=== PATIENT | female | born 1965 | race Caucasian/White ===

== ENCOUNTER → 2021-01-26 12:41 | Outpatient (CLI) | payer OTHER, SELFPAY ==
--- NOTE | 2021-01-26 12:55 | EKG12_ITS ---
Test Reason : PREOP Blood Pressure : / mmHG Vent. Rate : 086 BPM Atrial Rate : 086 BPM P-R Int : 112 ms QRS Dur : 078 ms QT Int : 358 ms P-R-T Axes : 075 078 072 degrees QTc Int : 428 ms Normal sinus rhythm Normal ECG Confirmed by ANTONIETA NIETO, RADHA ([id number]), technical writer and editor PARISH PHAN ([id number]) on 01/27/2021 10:13:41 AM Referred By: Mitesh Cherry Confirmed By:RADHA FUNG MD
[2021-01-26 13:44] LABS: Hematocrit 40.4 % (37-47); Hemoglobin 13.5 g/dL (12.0-15.0); Mean Corp Hgb Conc 33.4 g/dL (32-36); Mean Corpuscular Hgb 30.1 pg (27.0-32.0); Mean Platelet Vol. 10.6 fl (6.2-12.0); Platelet Count 285 K/mm3 (150-450); RBC Distribution Width CV 12.2 % (11.6-14.6); RBC Distribution Width SD 39.9 fl (35.1-43.9); Red Blood Count 4.49 M/mm3 (4.2-5.4); White Blood Count 7.6 K/mm3 (4.4-11.0)
[2021-01-26 14:08] LABS: Anion Gap 5 (5-15); BUN 14 mg/dL (7-18); BUN/Creat Ratio 14.5 RATIO (10-20); Calcium,Total 9.1 mg/dL (8.5-10.1); Chloride 106 mmol/L (98-107); Creatinine, Serum 0.96 mg/dL (0.55-1.02); EST Glomerular Filtration Rate 63 mL/min (>60); Est Glom Filt Rate - Afr Amer 77 mL/min (>60); Glucose 96 mg/dL (74-106); Sodium Level 138 mmol/L (136-145)
== END ==
PROVIDERS: Referring Provider Physician Assistant; Visit Provider Physician Assistant
DX: Z01.818 Encounter for other preprocedural examination (principal); Z01.810 Encounter for preprocedural cardiovascular examination; Z11.59 Encounter for screening for other viral diseases
CPT/HCPCS: 36415; 80048; 85027; 87635; 93005; C9803; U0002

== ENCOUNTER → 2021-10-20 10:51 | Outpatient (CLI) | payer OTHER, SELFPAY ==
--- NOTE | 2021-10-20 10:57 | ECHOD_ITS ---
Reason For Study: TACHYCARDIA Procedure This was a 2D Doppler, Color Flow transthoracic echocardiogram. Exam performed in department. Left Ventricle Normal LV size. Mid cavitary false tendon noted. Left ventricular systolic function is normal. The estimated ejection fraction is 55 %. Stage 1 diastolic dysfunction. No regional wall motion abnormalities noted. Right Ventricle Normal RV size. Normal systolic function. Mitral Valve Normal mitral valve. Tricuspid Valve Normal tricuspid valve. Mild tricuspid valve insufficiency. Pulmonary artery systolic pressure is 30 mmHg. Aortic Valve Trisinus/trileaflet aortic valve. Pulmonic Valve Normal pulmonic valve. Great Vessels Normal aortic root. The pulmonary artery is normal size. Normal inferior vena cava. Pericardium/Pleural No pericardial effusion. MMode/2D Measurements & Calculations LVIDd: 4.2 cm IVSd: 0.61 cm LAV(MOD-bp): 25.7 ml LVIDs: 2.9 cm LVPWd: 0.68 cm LAV(MOD-bp) Indexed: 14.0 ml/m2 RVDd: 2.8 cm FS: 31.2 % LAV(MOD-sp2): 27.6 ml LAV(MOD-sp4): 24.7 ml LVAd ap4: 22.4 cm2 SV(MOD-sp4): 33.3 ml SV(sp4-el): 35.1 ml LVLd ap4: 7.5 cm EDV(MOD-sp4): 56.8 ml EDV(sp4-el): 57.0 ml LVAs ap4: 12.7 cm2 LVLs ap4: 6.2 cm ESV(MOD-sp4): 23.6 ml ESV(sp4-el): 22.0 ml EF(MOD-sp4): 58.5 % EF(sp4-el): 61.5 % LA A4 area: 11.4 cm2 RA A4 area: 8.9 cm2 Doppler Measurements & Calculations MV E max eddie: 76.3 cm/sec Lat Peak E' Eddie: 10.2 cm/sec Med Peak E' Eddie: 6.5 cm/sec MV A max eddie: 92.9 cm/sec E/E' lat: 7.5 E/E' med: 11.7 MV E/A: 0.82 Ao V2 max: 136.7 cm/sec LV V1 max: 89.6 cm/sec TR max eddie: 261.8 cm/sec Ao max P.5 mmHg LV V1 max P.2 mmHg TR max P.4 mmHg ECHO/Echo Complete Interpretation Summary Normal LV size. Left ventricular systolic function is normal. The estimated ejection fraction is 55 %. Stage 1 diastolic dysfunction. Pulmonary artery systolic pressure is 30 mmHg. Ordering Physician: Jimenez Busch Referring Physician: Jimenez Busch Performed By: Otilia Streeter, RDCS, RVT
--- NOTE | 2021-10-20 12:56 | STRESSREP ---
Stress Test Report Exercise stress test. 56-year-old lady with a history of arrhythmia. Stress protocol: Resting EKG demonstrates normal sinus rhythm with a rate of 85 bpm normal intervals are noted resting blood pressure is 128/82 mmHg. The patient exercised according to regular Jamal protocol for a total duration of 6 minutes and 37 seconds. The maximum heart rate attained was 171 bpm which was 104% of max impact at heart rate to the maximum workload was 8.8 metabolic equivalents. Patient completed 37 seconds into stage III of the Jamal protocol. The peak blood pressure was 200/40 mmHg. No clinical angina was noted the test was terminated due to the target heart rate being achieved. No chest pain was noted no arrhythmias were noted. Rate-pressure product was 32,400. Conclusion: Exercise stress test with no EKG criteria for ischemia at a moderate workload. Good functional capacity. No angina present.
== END ==
PROVIDERS: Referring Provider Internal Medicine Cardiovascular Disease; Visit Provider Internal Medicine Cardiovascular Disease
DX: R00.0 Tachycardia, unspecified (principal)
CPT/HCPCS: 93017; 93306

== ENCOUNTER → 2022-09-27 | Outpatient (CLI) | payer OTHER, SELFPAY ==
--- NOTE | 2022-09-27 08:05 | MRI_ITS ---
HISTORY: VERTIGO. TECHNIQUE: Multiplanar and multisequence MR images of the brain were obtained before and after the intravenous administration of 14 mL Clariscan. 335 images. COMPARISON: None. FINDINGS: BRAIN PARENCHYMA: Minimal increased T2 FLAIR signal in the periventricular white matter. No enhancing lesion in the brain parenchyma. No abnormal focus of restricted diffusion. No acute intracranial hemorrhage identified. CSF SPACES: Cerebral ventricles, cortical sulci, and other extra-axial CSF spaces within normal limits in size. No significant midline shift or other mass effect.No extra-axial fluid collection. Volume averaging artifact noted at the right internal auditory canal. VASCULAR SYSTEM: Major intracranial flow voids are maintained. PARANASAL SINUSES AND MASTOID AIR CELLS: Trace fluid in the right mastoid air cells. Small Thornwaldt cyst of the nasopharynx. ORBITS: Symmetric contents. MRI/Brain W/WO Contrast IMPRESSION: No evidence for enhancing intracranial mass or acute infarct. Minimal chronic white matter changes. Electronically Signed: Chela Agrawal MD at 14:36 EST ,
== END | disposition home or self-care (01) ==
LOC: MRI 07:49
PROVIDERS: PCP Internal Medicine; Referring Provider Internal Medicine; Visit Provider Internal Medicine
DX: R42 Dizziness and giddiness (principal)
CPT/HCPCS: 70553; A9575

== ENCOUNTER → 2023-01-23 | Outpatient (CLI) | payer OTHER, SELFPAY ==
--- NOTE | 2023-01-23 09:03 | NEURO ---
NCS and/or EMG Patient Report Ordering Doctor: Thea Martínez DATE OF SERVICE: 01/23/23 Indication: Bilateral hand tingling and numbness (digits 2-4) for several years. Chronic right sided neck pain. Evaluate for cervical radiculopathy and/or entrapment neuropathy. Findings: Nerve conduction studies were performed in the right and left upper extremities. The right median motor study recording the abductor pollicis brevis showed a normal amplitude, normal distal latency and normal conduction velocity. The right ulnar motor study recording the abductor digiti minimi showed a normal amplitude, normal distal latency and normal conduction velocity. No conduction block or focal slowing was present across the elbow. The right median sensory response recording digit two showed a normal amplitude, latency and conduction velocity. The right ulnar sensory response recording digit five showed a normal amplitude, latency and conduction velocity. The right radial sensory response recording over the extensor snuff box showed a normal amplitude, latency and conduction velocity. The left median motor study recording the abductor pollicis brevis showed a normal amplitude, normal distal latency and normal conduction velocity. The left ulnar motor study recording the abductor digiti minimi showed a normal amplitude, normal distal latency and normal conduction velocity. No conduction block or focal slowing was present across the elbow. The left median sensory response recording digit two showed a normal amplitude, latency and conduction velocity. The left ulnar sensory response recording digit five showed a normal amplitude, latency and conduction velocity. The left radial sensory response recording over the extensor snuff box showed a normal amplitude, latency and conduction velocity. Right median-ulnar lumbrical / interosseous motor latencies showed a normal median latency compared to the ulnar. Left median-ulnar lumbrical / interosseous motor latencies showed a normal median latency compared to the ulnar. Needle EMG of the right upper extremity and cervical paraspinal muscles was performed. No denervation was seen in any muscle. All motor unit morphology, activation and recruitment patterns were normal. Needle EMG of the left upper extremity and cervical paraspinal muscles was performed. No denervation was seen in any muscle. All motor unit morphology, activation and recruitment patterns were normal. Impression: This is a normal study. There is no electrophysiologic evidence of median neuropathy across the wrist on either side. In addition, there is no electrophysiologic evidence of cervical radiculopathy, brachial plexopathy or other entrapment neuropathy in either upper extremity. Please note: electrodiagnostic testing is appropriately 95% sensitive in detecting median neuropathy across the wrist when internal comparison studies are done, as was performed in this case. However, 5% of patients will have a false negative study. Presumably, in these patients, intermittent compression results in pain and paresthesias from ischemia, but without any fixed demyelination or axonal loss that can be demonstrated on electrodiagnostic studies. Thus, clinical correlation is required in the interpretation of this negative study. Kevon Camacho D.O. Multi Select Codes Neurology Neurology Interp Codes: 41696-00 [facility] [employer] test done w/n test comp (interp) (Qty:2) and 02476-44 [facility] cndj test 13/> studies (interp)
== END | disposition home or self-care (01) ==
PROVIDERS: PCP Internal Medicine; Visit Provider Internal Medicine
DX: R20.2 Paresthesia of skin (principal)
CPT/HCPCS: 95886; 95913

== ENCOUNTER → 2023-02-28 | Outpatient (CLI) | payer OTHER, SELFPAY ==
--- NOTE | 2023-02-28 09:40 | RAD_ITS ---
INDICATION: DEGENERATIVE DISC DISEASE PAIN AND STIFFNESS, N/T INTO BILAT HANDS, NKI EXAMINATION/TECHNIQUE: X-RAY - XR Spine Cervical 2 or 3 Views COMPARISON: FINDINGS: Vertebral bodies are normal in height. No fracture demonstrated. No subluxation. C1-2 alignment is maintained. Mild disc space narrowing with osteophytes C4-C6. Tiny fragment adjacent to the anterior-inferior corner of C5 appears well-corticated and likely related to an osteophyte or possibly prior trauma. Mild facet arthropathy at the lower levels C5-C7. Prevertebral soft tissues are unremarkable. RAD/Cerv Spine 2 or 3 Views IMPRESSION: No evidence of fracture or subluxation. Mild degenerative changes. MRI may be helpful for further evaluation. Electronically Signed: Otilia Mclean MD at 7:57 EDT ,
== END | disposition home or self-care (01) ==
LOC: RAD 09:20
PROVIDERS: PCP Internal Medicine; Referring Provider Internal Medicine; Visit Provider Internal Medicine
DX: M50.30 Other cervical disc degeneration, unspecified cervical region (principal)
CPT/HCPCS: 72040

== ENCOUNTER → 2024-01-09 | Outpatient (CLI) | payer OTHER, SELFPAY ==
--- NOTE | 2024-01-09 10:51 | CDU_ITS ---
Reason For Study: Near syncope Rt. Velocities/BP Lt. Velocities/BP Prox CCA 105.8/21.2 cm/sec. Prox CCA 124.7/27.9 cm/sec. Mid CCA 100.3/25.6 cm/sec. Mid CCA 101/24.3 cm/sec. Dist CCA 87.2/24.5 cm/sec. Dist CCA 79.1/20.6 cm/sec. Prox ICA 71.8/17.9 cm/sec. Prox ICA 64.2/24.9 cm/sec. Mid ICA 102.5/37.7 cm/sec. Mid ICA 93.7/33.5 cm/sec. Dist ICA 113.3/44.6 cm/sec. Dist ICA 99.2/33.4 cm/sec. Rt. ICA/CCA = 1.13. Lt. ICA/CCA = 0.98. Prox ECA 75.1/9.1 cm/sec. Prox ECA 108.3/17 cm/sec. Rt. Vert. 58.1/16.3 cm/sec. Lt. Vert. 87.6/18.8 cm/sec. Right Extracranial There is intimal thickening but no significant atherosclerotic plaque noted in the right common carotid artery. There is intimal thickening but no significant atherosclerotic plaque noted in the right internal carotid artery. There is intimal thickening but no significant atherosclerotic plaque noted in the right external carotid artery. Antegrade flow is noted in the right vertebral artery. Left Extracranial There is intimal thickening but no significant atherosclerotic plaque noted in the left common carotid artery. There is intimal thickening but no significant atherosclerotic plaque noted in the left internal carotid artery. There is intimal thickening but no significant atherosclerotic plaque noted in the left external carotid artery. Antegrade flow is noted in the left vertebral artery. Procedure Carotid Duplex 24160. This is a Carotid Duplex examination using B-mode, color flow and specral Doppler. Exam performed in department. VL/Carotid Duplex Ultrasound Interpretation Summary Intimal thickening of the right internal carotid artery with less than 50% sten osis Less than 50% stenosis right external carotid artery Intimal thickening at the proximal left internal carotid artery with less than 50% stenosis Less than 50% stenosis left external carotid artery Patent and antegrade vertebral arteries bilaterally Ordering Physician: Thea Martínez Referring Physician: Teha Martínez D.O. Performed By: Angie Quevedo RVT
== END | disposition home or self-care (01) ==
PROVIDERS: PCP Internal Medicine; Referring Provider Internal Medicine; Visit Provider Internal Medicine
DX: R55 Syncope and collapse (principal)
CPT/HCPCS: 93880

== ENCOUNTER 2024-01-10 16:00 | Outpatient (RCR) | payer OTHER, SELFPAY ==
--- NOTE | 2023-12-13 17:01 | HP.PTEVAL_ITS ---
Patient's Visit Information Visit Information Visit Information: SAL WALKER is a 58 year old F referred to Physical Therapy by Dr. Thea Martínez DO with a diagnosis of TENNIS ELBOW. Date of Evaluation: 12/13/23 Physical Therapist: Quincy Sherwood, PT, Cert MDT, OCS Visit Plan Frequency: 2x /Week Duration: 4 Weeks Plan: Patient had surgery on wrist in Sep 28 OT is doing ex's for ROM/STRENG THENING at [facility] PT INTERVENTIONS FOCUS MANUAL THERAPY STM ,/HAWK ,ACTIVITY MODIFICATIONS AND MODALTIES US/ESTIM/CP/MHP Subjective Subjective: This 58 y/o female presents to physical therapy with right elbow tendonitis lateral. Patient has had right epicondylitis ~ 1 year. Patient had right hand /wrist surgery removed ganglion cyst and tendon repair on 09/26/23. Patient seeing OT but currently seeing OT every 3weeks . Patient plans to RTW 12/18/23. Patient elbow pain persisted . Seen DR Martínez recommended PT and started on Gabapentin. Patient wrist surgery interferes elbow. Patient c/o paresthesia/tingling elbow . Patient sleeping is affects sleeping. Patient pain impairs ADLS /housework tasks . Patient was taking prednisone due to hand edema which patient has stopped . Patient goals to decrease pain. 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 MMT: wrist flexion/extension ,supination/pronation 4-/5 elbow biceps /triceps 4/5 pain Special Tests R Elbow Tinels - Ulnar n.: Negative R Elbow Lat Epiconylitis - as named: Positive Balance/Special Test Scores Quick DASH Score: 67.5000 Goals Goal 1:: Patient to improve quick dash by 5 points to improve function/ADLS Goal Time Frame: 4-6 Weeks Goal 2:: Patient to demonstrate 50% improvement with less elbow pain and improved function Goal Time Frame: 4-6 Weeks Goal 3:: 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 by 5-10# to improve ADL's and housework tasks Goal Time Frame: 4-6 Weeks Goal 4:: Patient to perform ADLS and housework tasks with min limiations Goal Time Frame: 4-6 Weeks Rehabilitation Potential Physical Therapy Diagnosis: Patient has lateral elbow pain and tender medial elbow with weakness 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 and housework tasks subsequently patient had wrist surgery which has caused elbow pain but patient had elbow tendonitis prior to surgery thus will benefit from skilled PT Rehabilitation Potential: Good Anticipated Interventions Patient/Client Instruction: Educate patient on: Condition and Plan of Care For the Purpose of:: To decrease pain, To improve nutrient delivery to tissue, To increase oxygenation perfusion, To improve muscle performance and motor f unction, To improve ability to perform ADL's, To increase tolerance to activity/condition/position, To improve ability of physical actions for home/community/work/leisure, To improve health of tissue, To decrease soft tissue restriction, To increase flexibility/ROM and To improve tolerance to ADL's Manual Therapy Techniques to Include: Manual lymph drainage and Soft tissue mobilization For the Purpose of:: To decrease pain, To increase ROM, To improve nutrient delivery to tissue, To increase oxygenation perfusion, To improve health of tissue and To decrease soft tissue restriction Text: Thank you for the opportunity to evaluate your patient. For Medicare and Medicare HMO plans, please review the plan of care and approve it. It will need to be FAXED BACK to us at [phone] for Medicare purposes. For Medicare only, by signing this I certify the plan of care. Please let me know if there are questions or concerns regarding this plan of care. Physician Signature: Date:
--- NOTE | 2024-01-10 17:00 | HP.PTDCSUM_ITS ---
Discharge Summary D/C summary: It has been my pleasure to treat SAL WALKER referred by Dr. Thea Martínez DO, with the diagnosis of TENNIS ELBOW for a total of 8 visit(s). Discharge Date: Please see the following information for a summary of their discharge status. Subjective Subjective: Burning pain better . 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 MMT: wrist flexion/extension ,supination/pronation 4-/5 elbow biceps /triceps 4/5 pain Goals Goal 1:: Patient to improve quick dash by 5 points to improve function/ADLS Goal Progress: Goal Met Goal 2:: Patient to demonstrate 50% improvement with less elbow pain and improved function Goal Progress: Goal Met Goal 3:: Patient to improve electronic assembly strength by 5-10# to improve ADL's and housework tasks Goal Progress: Goal Met Goal 4:: Patient to perform ADLS and housework tasks with min limiations Goal Progress: Goal Met Plan Plan: D/C D/C Information d/c sentence: If there are questions or concerns regarding this patient's physical therapy, please feel free to call me at [phone]. Thank you for the referral of this patient. Sincerely, Quincy Sherwood, PT, Cert MDT, OCS Balance/Gait/Functional tests Balance/Special Test Scores Quick DASH Score: 15.0000 Improvement % Improvement: 90
== END 2024-01-10 19:00 | disposition home or self-care (01) ==
LOC: PT 16:00
PROVIDERS: PCP Internal Medicine; Referring Provider Internal Medicine; Visit Provider Internal Medicine
DX: M77.10 Lateral epicondylitis, unspecified elbow (principal)
CPT/HCPCS: 97014; 97035; 97140; 97162; 97530; G0283

== ENCOUNTER → 2024-03-19 | Outpatient (CLI) | payer OTHER, SELFPAY ==
--- NOTE | 2024-03-19 10:49 | BI_ITS ---
MAMMOGRAPHY - BILATERAL SCREENING REASON FOR EXAM: Female, 59 years old. Routine annual screening examination. PERTINENT HISTORY: Non-contributory. TECHNIQUE: Digital bilateral breast uche (3D mammographic acquisition) in the CC and MLO projections. 2-D mediolateral oblique (MLO) and craniocaudad (CC) views of both breasts were obtained. CAD: Full Field Digital Mammography with Computer Added Detection was performed. COMPARISON: Comparison is made with prior outside examination of August 23, 2022. FINDINGS: Breast Composition: The breasts are extremely dense, which lowers the sensitivity of mammography. There are no dominant masses or suspicious calcifications. No other significant abnormalities are identified. There has been no significant change since the prior study. BI/SCRN MAMM (CAD)W/UCHE BILAT IMPRESSION: Stable bilateral screening mammogram. Yearly follow-up mammogram recommended. (A) ASSESSMENT CATEGORY: BIRADS Category 1: Negative. A letter regarding these results will be sent to the patient by the facility within 30 days. Approximately 10% of breast cancers are not detected by mammography. A normal mammogram should not delay biopsy of a clinically suspicious abnormality. [id number] Electronically Signed: Blaine Coreas MD at 12:41 EDT ,
== END | disposition home or self-care (01) ==
LOC: OPBI 10:44
PROVIDERS: PCP Internal Medicine; Referring Provider Internal Medicine; Visit Provider Internal Medicine
DX: Z12.31 Encounter for screening mammogram for malignant neoplasm of breast (principal)
CPT/HCPCS: 77063; 77067

== ENCOUNTER → 2025-08-19 | Outpatient (CLI) | payer OTHER, SELFPAY ==
[2025-08-25 16:09] LABS: Age Gdln ACOG Testing 30-65 (.); HPV APTIMA, High Risk Negative (Negative)
== END | disposition home or self-care (01) ==
LOC: LABSPEC 08-20 12:28
PROVIDERS: PCP Nurse Practitioner Family; Referring Provider Nurse Practitioner Family; Visit Provider Nurse Practitioner Family
DX: Z12.4 Encounter for screening for malignant neoplasm of cervix (principal)
CPT/HCPCS: 87624; 88175; G0145

== ENCOUNTER → 2025-10-01 | Outpatient (CLI) | payer OTHER, SELFPAY ==
--- NOTE | 2025-09-30 16:57 | BI_ITS ---
EXAM: SCRN MAMM (CAD)W/UCHE BILAT DATE: 09/30/2025 CLINICAL HISTORY: F, Age 60 y/o , SCREENING TECHNIQUE: Procedure Code: [id number] Modality: MG Procedure: SCRN MAMM (CAD)W/UCHE BILAT COMPARISON: Prior exam(s) dated 03/19/2024 and 08/23/2022. FINDINGS: TISSUE DENSITY: The breasts are extremely dense, which lowers the sensitivity of mammography. Bilateral Breast Mammographic Findings: No significant masses, calcifications or other abnormalities are identified. Benign-appearing round microcalcifications are seen in both breasts. BI/SCRN MAMM (CAD)W/UCHE BILAT IMPRESSION: Benign screening mammogram OVERALL FINAL ASSESSMENT BI-RADS 2: BENIGN RECOMMENDATION: Routine annual follow-up in 1 Year Additional Recommendation none A letter with findings and recommendations will be mailed to the patient. Reading Location: [id number]
--- OUTSIDE RECORDS SUMMARY | 2025-10-01 16:34 | XMS RPT_ITS | CCD ---
Author Organization [facility] Care Team Providers Care Records Assistant Name Role Phone Jroje Paulson Unavailable Unavailable Jorje Paulson Unavailable Unavailable Jorje Paulson Unavailable Unavailable Jorje Paulson Unavailable Unavailable Paulinarbmckenzie Ellie Unavailable Unavailable Rohrbacher Ellie Unavailable Unavailable ANGELITA, SNEHA Unavailable Unavailable ANGELITA, SNEHA Unavailable Unavailable JORJE PAULSON Unavailable Unavailable ANGELITA, SNEHA Unavailable Unavailable SHEILA LEIV Unavailable Unavailable ELLIE SANCHEZ Unavailable Unavailable DESHAUN, ALVERTO A Unavailable Unavailable Jorje Paulson Unavailable Unavailable Unavailable Unavailable Primary Care Provider Unavailabl e Unavailable Primary Care Provider Unavailabl e Fast DO, Geovanni A Unavailable Finn HUERTA, Ana Rosa Unavailable Unavailable Unavailable Unavailable Unavailable Primary Care Provider Unavailabl e JORJE PAULSON Referring Unavailab moon SOLOMON, SHANTA Attending Unavailable JORJE PAULSON Referring Unavailab le SOLOMON, SHANTA Attending Unavailable JORJE PAULSON Referring Unavailab le SOLOMON, SHANTA Attending Unavailable JORJE PAULSON Referring Unavailab moon SOLOMON, SHANTA Attending Unavailable JORJE PAULSON Referring Unavailab JUICE Palacios Referring Unavail able JORJE PAULSON Referring Unavailab le JORJE PAULSON Referring Unavailab le SOLOMON, SHANTA Attending Unavailable Fast DO, Geovanni A Attending Unavailable Fast , Geovanni Charley Referring Unavailable Fast DO, Geovanni A Consulting Unavailable Dr. Geovanni Wiley Attending Unavailable Dr. Jorje Paulson Primary Care Unava ilable FAST, GEOVANNI Referring Unavailable Mauricio, Dr. Sidhu Primary Care Provider [phone] Mauricio, Dr. Sidhu Other Provider Dr. Max Camacho Attending Provider Alexia NIETO, Immanuel Rocio Unavailable [phone] EphraimRemedios Unavailable Geovanni Wiley DO Unavailable Mauricio, Dr. Sidhu Referring Provider [phone] Saba Lowery MA Unavailable Unavailable Bob RESEARCH ADVISOR, Genoveva Unavailable Unavailable Fast, Dr. Sidhu Primary Care Provider [phone] Dr. Saurabh Acosta Attending Provider Mauricio, Dr. Sidhu Referring Provider [phone] Unavailable Primary Care Provider Unavailabl e Kai, Katherine Referring Unavailable Kai, Katherine Attending Unavailable Kai, Katherine Primary Care Unavailable Kai, Katherine Primary Care Unavailable Kai, Katherine Referring Unavailable Kai, Katherine Attending Unavailable FABY MARTIN Referring Roz anastasiailable JAQUELIN BUCHANAN Attending Unavaila ble NO, PHYSICIAN Primary Care Unavailable No, Physician Primary Care Provider Unavailabl e Allergies Allergy Classification Reported Allergen(s) Allergy Type Date of Onset Reaction(s) Facility (2 sources) house dust Allergy to substance (finding) [address] Work Phone: (4 sources) Mold Extract; Translations: [MOLD] Drug Allergy 5 Unknown [facility] Repository (20 sources) Soybean preparation Drug Allergy 5 Unknown [facility] Work Phone: (20 sources) wheat; Translations: [WHEAT] Allergy to substance (finding) 5 [facility] Work Phone: (20 sources) Mold Spores; Translations: [Mold Spores] Allergy to substance (finding) [facility] Work Phone: (1 source) Soybean preparation; Translations: [SOYBEAN] Drug Allergy 5 [facility] Repository (1 source) Wheat preparation Drug Allergy Unknown [facility] Medications Current Medications Medication Drug Class(es) Dates Sig (Normalized) Sig (Original) bio identical Hormones (5 sources) Start: 10-06-2021 bio identical Hormones Active PO DAILY October 06, 2021 1:00am estradiol 0.5 mg estrio 0.3 mg progesterone 180 mcg testosterone 0.4 mg cream Start: 10-06-2021 bio identical Hormones Active PO DAILY October 06, 2021 12:00am estradiol 0.5 mg estrio 0.3 mg progesterone 180 mcg testosterone 0.4 mg cream doxycycline hyclate 20 mg oral tablet (20 sources) Tetracycline-class Drug Start: 02-08-2022 doxycy koehler hyclate (PERIOSTAT) 20 MG tablet Take 1 (one) tablet (20 mg total) by mouth . 02/08/2022 Active levothyroxine (10 sources) l-Thyroxine levothyroxine so dium (LEVOTHYROXINE ORAL) Take by mouth. Active levothyroxine so dium (LEVOTHYROXINE ORAL) Take by mouth. 0 Active Comment on above: Take by mouth. Multivitamin preparation (5 sources) Start: 10-05-2021 take 1 tablet by mouth once daily Multivitamin Active 1 TABLET PO DAILY October 05, 2021 1:00am Start: 10-05-2021 take 1 tablet by massiel th once daily Multivitamin Active 1 TABLET PO DAILY October 05, 2021 12:00am progesterone 200 mg oral capsule (20 sources) Progesterone Start: 09-11-2025 progesterone ( PROMETRIUM) 200 MG capsule 09/11/2025 Active Start: 09-06-2022 End: 11-22-2022 take 1 capsule by mouth once daily proGESTerone micronized 200 mg oral capsule 1 (one) Capsule qd for 0 days Quantity: 30 {Capsule} Refills: 0 Ordered: 22-Nov-2022 Fast DO, Geovanni A Fast DO, Geovanni A Start : 06-Sep-2022 End : 22-Nov-2022 Inactive Start: 02-08-2022 take 100 mg by mouth once sobeida y Progesterone Micronized Active 100 MG PO DAILY February 07, 2022 11:00pm Completed/Discontinued Medications Medication Drug Class(es) Dates Sig (Normalized) Sig (Original) 5-hydroxytryptophan 100 mg oral capsule (20 sources) Start: 10-05-2021 End: 10-06-2021 5-Hydroxytryptophan (5-Htp) Discontinued 100 MG PO AT BEDTIME October 05, 2021 12:00am October 06, 2021 10:17am take 5 capsules by mouth once da susana 5-HTP 100 MG Oral Capsule qd (100 MG) Active B-Complex With Vitamin C (5 sources) Start: 10-05-2021 End: 10-06-2021 take 1 tablet by mouth once daily B-Complex With Vitamin C Discontinued 1 TABLET PO DAILY October 05, 2021 1:00am October 06, 2021 11:17am Start: 10-05-2021 End: 10-06-2021 take 1 tablet by mouth once daily B-Complex With Vitamin C Discontinued 1 TABLET PO DAILY October 05, 2021 12:00am October 06, 2021 10:17am citalopram 20 mg oral tablet (5 sources) Serotonin Reuptake Inhibitor Start: 10-05-2021 End: 10-06-2021 take 20 mg by mouth at bedtime Citalopram Discontinued 20 MG PO AT BEDTIME October 05, 2021 12:00am October 06, 2021 10:17am Glutathione (20 sources) Glutathione 300m g 1 tab in AM Inactive Glutathione 300m g 1 tab in AM Active ivermectin 10 mg/ml topical cream (8 sources) Antiparasitic, Pediculicide ivermectin 1 % topic al cream uad on face (1 %) Active Comments: Dr. Garcia Comment on above: Dr. Garcia L-Methylfolate (4 sources) L-Methylfolate 1 000mcg qd Active levomefolate (20 sources) Start: 10-05-2021 End: 10-06-2021 Levomefolate Calcium (L-Methylfolate) 7.5 mg tablet Discontinued 2 MG PO DAILY October 05, 2021 1:00am October 06, 2021 11:16am Start: 10-05-2021 End: 10-06-2021 Levomefolate Calcium (L-Meth ylfolate) 7.5 mg tablet Discontinued 2 MG PO DAILY October 05, 2021 12:00am October 06, 2021 10:16am L-Methylfolate 1 000mcg qd Active linseed oil 1000 mg oral capsule (20 sources) take 1 tablet by mouth in the morning Flaxseed Oil 1000 MG Oral Capsule 1 tab in AM (1000 MG) Active liothyronine sodium 0.005 mg oral tablet (20 sources) l-Triiodoth yronine Start: 10-05-2021 take 1 tablet by mouth once daily in the morning, then take 0.5 tablet by mouth once daily at bedtime liothyronine 5 mcg oral tablet 1 1/2 (one and a half) tablet daily for 90 days Quantity: 135 {Tablet} Refills: 1 Ordered: 22-Mar-2023 Saba Lowery MA Start : 22-Mar-2023 Active Comments: Mail order. Take 1 tab qam, then 1/2 tab qhs Start: 10-05-2021 take 5 ug by mouth twice daily Liothyronine Active 5 MCG PO TWICE A DAY October 05, 2021 12:00am Liothyronine Sod ium 5 MCG Oral Tablet Quantity: 0 Refills: 0 Ordered: 07-Sep-2021 DO Active Comment on above: Mail order. Take 1 t ab qam, then 1/2 tab qhs Multivitamin Adult Oral Tablet (20 sources) Multivitamin Yuriy lt Oral Tablet qd Active Thioctate (20 sources) Alpha Lipoic Aci d 250mg 1 in AM Active tryptophan 500 mg oral capsule (20 sources) take 1 mg by mouth once daily L-Tryptophan 500 MG Oral Capsule qd (500 MG) Active Vitamin D-3 TABS (2 sources) Vitamin D-3 TABS Quantity: 0 Refills: 0 Ordered: 07-Sep-2021 DO Active Womens Multivitamin Plus TABS (2 sources) Womens Multivita min Plus TABS Quantity: 0 Refills: 0 Ordered: 07-Sep-2021 DO Active Problems Active Problems Problem Classification Problem Date Documented Date Episodic/Chronic Cardiac dysrhythmias (5 sources) Tachycardia; Translations: [Tachycardia, unspecified] 10-05-2021 Episodic Chronic kidney disease (20 sources) Chronic kidney disease stage 2; Translations: [Stage 2 chronic kidney disease] 09-11-2022 Chronic Comment on above: last creatinine norm al get followup lab Conditions associated with dizziness or vertigo (20 sources) Vertigo; Translations: [Vertigo] 09-06-2022 Episodic Comment on above: hearing loss and tin nitus- rule out acoustic neuroma - also headaches and memory loss Diabetes mellitus without complication (20 sources) High hemoglobin A1c level; Translations: [Elevated hemoglobin A1c] 09-11-2022 Episodic Comment on above: get followup lab good control continu e working on diet and ex Disorders of lipid metabolism (20 sources) Hyperlipidemia; Translations: [Hyperlipidemia] Onset: 09-11-2022 Chronic Comment on above: do physical lab high but she said chapin d nmr and particles were good - not wanting to take a statin- she is doing niacin for her apoliporotein b- discussed diet and exget blood flow screening and cardiac cta she doesnt want to t camille meds she is aware risk focardiovascular disease she had cardiac calciumscore neg Immunizations and screening for infectious disease (20 sources) Needs influenza immunization; Translations: [Need for prophylactic vaccination and inoculation against influenza (Renamed from Need for immunization against influenza)] Resolve d: 09-06-2022 Episodic Malaise and fatigue (5 sources) Fatigue; Translations: [Chronic fatigue, unspecified] 10-05-2021 Chronic Menopausal disorders (20 sources) Menopausal symptom; Translations: [Menopausal symptoms] 09-06-2022 Chronic Comment on above: refer luis doing better with pe llets much better Other bone disease and musculoskeletal deformities (20 sources) Osteopenia; Translations: [Osteopenia] 11-22-2022 Episodic Comment on above: weight bearing exerc ise- vit d good weight bearing exerc ise vit d Other eye disorders (2 sources) Myogenic ptosis of bilateral eyelids; Translations: [Myogenic ptosis of bilateral eyelids] Onset: Episodic Other eye disorders (1 source) Bilateral myogenic ptosis of eyes; Translations: [Myogenic ptosis of bilateral eyelids] 09-15-2025 Episodic Other female genital disorders (12 sources) Cyst of vagina; Translations: [Vaginal cysts] 08-08-2023 Episodic Comment on above: not active today but think could be bartholin gland cyst as she said they will open and have fluid- try warm compress and she think illicited by husbands diet so working on that Other infections; including parasitic (20 sources) Lyme disease; Translations: [Lyme disease] Resolve d: 023 09-06-2022 Episodic Comment on above: diagnosed 13 years a go- she diagnosed with myocarditis so saw Scott- seeing clinic in [place] for lymes and helping- Other inflammatory condition of skin (20 sources) Rosacea; Translations: [Acne rosacea] Onset: 025 09-06-2022 Chronic Other inflammatory condition of skin (2 sources) Rosacea, unspecified; Translations: [Rosacea, unspecified] Onset: Chronic Other lower respiratory disease (5 sources) Dyspnea; Translations: [Dyspnea, unspecified] 10-06-2021 Episodic Other nervous system disorders (20 sources) Paresthesia of upper limb; Translations: [Paresthesia of arm] 11-22-2022 Episodic Comment on above: surgery on ganglion Other non-traumatic joint disorders (1 source) Pain of right wrist; Translations: [Pain in right wrist] 07-30-2024 Episodic Other nutritional; endocrine; and metabolic disorders (1 source) Methylenetetrahydrofolate reductase deficiency; 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 Other skin disorders (5 sources) Night sweats; Translations: [Generalized hyperhidrosis] 10-06-2021 Episodic Flor-; endo-; and myocarditis; cardiomyopathy (except that caused by tuberculosis or sexually transmitted disease) (20 sources) Myocarditis; Translations: [Myocarditis] Resolve d: 023 09-06-2022 Chronic Comment on above: was told had lyme my ocarditis- and was having racing heart but that has stopped Residual codes; unclassified (2 sources) History of clinical finding in subject; Translations: [Asymptomatic postmenopausal status (age-related) (natural)] Episodic Comment on above: 2015; Residual codes; unclassified (2 sources) Past history of procedure; Translations: [Other specified personal history presenting hazards to health] Episodic Comment on above: 05/2021; Residual codes; unclassified (2 sources) H/O: miscarriage; Translations: [Personal history of other genital system and obstetric disorders] Episodic Comment on above: 1992; Residual codes; unclassified (20 sources) Body mass index 20-24 - normal; Translations: [BMI 23.0-23.9, adult] 09-06-2022 Episodic Residual codes; unclassified (20 sources) Hereditary disorder of endocrine system; Translations: [MTHFR mutation] 09-06-2022 Episodic Comment on above: had issues with gett ing and had miscarriage- taking methylfolate Residual codes; unclassified (20 sources) Non-smoker; Translations: [Nonsmoker] 09-06-2022 Episodic Residual codes; unclassified (5 sources) Heterozygous methylenetetrahydrofolate reductase mutation; Translations: [Genetic susceptibility to other disease] 10-05-2021 Episodic Spondylosis; intervertebral disc disorders; other back problems (20 sources) Degeneration of cervical intervertebral disc; Translations: [Degenerative disc disease, cervical] Onset: 023 09-11-2022 Chronic Comment on above: improving withpt will need mri of lum bar spine get emgncs - may hav e some carpal tunnel getting mri of lumba r spine she saw surgery they didnt feel enough to operate so going to see hand surgeon if neg laurence at thoracic outlet following getting ramos rgery on ganglion right wrist Thyroid disorders (10 sources) Hypothyroidism, unspecified; Translations: [Hypothyroidism] Onset: 10-05-2021 Chronic Thyroid disorders (6 sources) Sick-euthyroid syndrome; Translations: [Sick-euthyroid syndrome] Onset: 10-06-2021 Episodic Unclassified (20 sources) Encounter for screening for malignant neoplasm of colon; Translations: [Patient encounter status] Onset: 08-08-2023 Episodic Unclassified (20 sources) Unclassified (12 sources) eyelid itching- try zyrtec at hs to start 08-08-2023 Past or Other Problems Problem Classification Problem Date Documented Da te Episodic/Chronic Other bone disease and musculoskeletal deformities (13 sources) Idiopathic kyphoscoliosis; Translations: [Other idiopathic scoliosis, site unspecified] Onset: 07-19-2022 Resolved: 10-11-2022 Chronic Other connective tissue disease (13 sources) Poor posture; Translations: [Abnormal posture] Onset: 07-19-2022 Resolved: 10-11-2022 Episodic Unclassified (2 sources) Finding of menstrual bleeding; Translations: [Menstruation] Comment on above: Onset age 11 years; Unclassified (20 sources) [facility] WELLNESS EXAM 11-22-2022 Unclassified (20 sources) Unspecified Diagnosis 03-22-2023 Results Test Name Value Interpretation Reference Range Facility PAP IG w/Reflex HPV GDLNon 1 ADEQ Comment Normal . [facility] Comment on above: Order Comment: Speci men Comment: [id number] Specimen Comment: No. of containers..01 ThinPrep Vial Result Comment: Sati sfactory for evaluation. No endocervical component is identified. Performed By: #### L 7400.0290 #### [facility] [address] [place], [place], [id number] Age Gdln ACOG T 30-65 Normal . [facility] Comment on above: Order Comment: Speci men Comment: [id number] Specimen Comment: No. of containers..01 ThinPrep Vial Performed By: #### L 7400.0290 #### [facility] [address] [place], [place], [address] COMM . Normal . [facility] Comment on above: Order Comment: Speci men Comment: [id number] Specimen Comment: No. of containers..01 ThinPrep Vial Performed By: #### L 7400.0290 #### [facility] [address] [place], [place], [id number] COMMENT Comment Normal . [facility] Comment on above: Order Comment: Speci men Comment: [id number] Specimen Comment: No. of containers..01 ThinPrep Vial Result Comment: This liquid based ThinPrep(R) pap test was interpreted using the vozero(R) Genius(TM) Cervical Algorithm whole slide imaging system. Performed By: #### L 7400.0290 #### [facility] [address] [place], [place], [address] DIAG Comment Normal . [facility] Comment on above: Order Comment: Speci men Comment: [id number] Specimen Comment: No. of containers..01 ThinPrep Vial Result Comment: NEGA TIVE FOR INTRAEPITHELIAL LESION OR MALIGNANCY. Performed By: #### L 7400.0290 #### [facility] [address] [place], [place], [address] HPV APTIMA, HR Negative Normal Negative [facility] Comment on above: Order Comment: Speci men Comment: [id number] Specimen Comment: No. of containers..01 ThinPrep Vial Result Comment: This nucleic acid amplification test detects fourteen high- risk HPV types (16,18,31,33,35,39,45,51,52,56,58,59,66,68) without differentiation. Performed By: #### L 7400.0290 #### [facility] [address] [place], [place], [address] HPV Fadumo Rfx Comment Normal . [facility] Comment on above: Order Comment: Speci men Comment: [id number] Specimen Comment: No. of containers..01 ThinPrep Vial Result Comment: Crit eria not met, HPV Genotype not performed. Performed at: =[facility] [address] [id number] Test Design Engineer: Zandra Fatima MD, Phone: [phone] Performed at: [address] [id number] Test Design Engineer: Zandra Fatima MD, Phone: [phone] Performed By: #### L 7400.0290 #### [facility] [address] [place], [place], [address] PAPSMR Comment Normal . [facility] Comment on above: Order Comment: Speci men Comment: [id number] Specimen Comment: No. of containers..01 ThinPrep Vial Result Comment: The Pap smear is a screening test designed to aid in the detection of premalignant and malignant conditions of the uterine cervix. It is not a diagnostic procedure and should not be used as the sole means of detecting cervical cancer. Both false-positive and false-negative reports do occur. Performed By: #### L 7400.0290 #### [facility] [address] [place], [place], [address] PERFORM Comment Normal . [facility] Comment on above: Order Comment: Speci men Comment: [id number] Specimen Comment: No. of containers..01 ThinPrep Vial Result Comment: Julienne Reynolds, Commercial Account Executive (ASCP) Performed By: #### L 7400.0290 #### [facility] [address] [place], [address] CBC W/AUTO DIFF WBC (63131)O rdered By: Steamer Gum Candy on 08-29-2023 Basophils (Bld) [#/Vol] 0.0 10*3/uL Normal 0.0-0.2 [facility] Work Phone: Comment on above: PATIENT WAS FASTINGP ERFORMED BY: [facility] Slydso8207 [facility] [id number] Basophils/100 WBC (Bld) 0 % Normal [facility] Work Phone: Comment on above: PATIENT WAS FASTINGP ERFORMED BY: [facility] Ngxsyi2783 [facility] [id number] Eosinophils (Bld) [#/Vol] 0.1 10*3/uL Normal 0.0-0.4 [facility] Work Phone: Comment on above: PATIENT WAS FASTINGP ERFORMED BY: [facility] Btrmes9410 [facility] [id number] Eosinophils/100 WBC (Bld) 1 % Normal [facility] Work Phone: Comment on above: PATIENT WAS FASTINGP ERFORMED BY: [facility] Eyranv2493 [facility] [id number] Erythrocyte distribution width (RBC) [Ratio] 12.1 % Normal 11.7-15.4 [facility] Work Phone: Comment on above: PATIENT WAS FASTINGP ERFORMED BY: [facility] Gaxelh2585 [facility] [id number] Hematocrit (Bld) [Volume fraction] 42.7 % Normal 34.0-46.6 [facility] Work Phone: Comment on above: PATIENT WAS FASTINGP ERFORMED BY: MAUDE Amy Blanchard[address] [facility] [place] [id number] Hemoglobin (Bld) [Mass/Vol] 13.9 g/dL Normal 11.1-15.9 [facility] Work Phone: Comment on above: PATIENT WAS FASTINGP ERFORMED BY: MAUDE [facility] Ceatui[address] [place] [id number] Immature granulocytes (Bld) [#/Vol] 0.0 10*3/uL Normal 0.0-0.1 [facility]; [facility] Work Phone: Comment on above: PATIENT WAS FASTINGP ERFORMED BY: MAUDE [facility] Ypwkud2228 [address] RoadNovant Healthin [place] [id number] Immature granulocytes/100 WBC (Bld) 0 % Normal [facility]; [facility] Work Phone: Comment on above: PATIENT WAS FASTINGP ERFORMED BY: MAUDE [facility] Kexyow[address] [facility] [place] [id number] Lymphocytes (Bld) [#/Vol] 1.6 10*3/uL Normal 0.7-3.1 [facility] Work Phone: Comment on above: PATIENT WAS FASTINGP ERFORMED BY: [facility] Pfoblg5506 [address] RoadNovant Healthin [place] [id number] Lymphocytes/100 WBC (Bld) 24 % Normal [facility]; [facility] Work Phone: Comment on above: PATIENT WAS FASTINGP ERFORMED BY: MAUDE [facility] Qecwvl4800 [address] RoadDublin [place] [id number] MCH (RBC) [Entitic mass] 30.0 pg Normal 26.6-33.0 [facility]; [facility] Work Phone: Comment on above: PATIENT WAS FASTINGP ERFORMED BY: MAUDE [facility] Gitfxi9579 [address] RoadDublin [place] [id number] MCHC (RBC) [Mass/Vol] 32.6 g/dL Normal 31.5-35.7 [facility]; [facility] Work Phone: Comment on above: PATIENT WAS FASTINGP ERFORMED BY: MAUDE [facility] BlanchardCbdajx0632 [address] RoadDublin [place] [id number] MCV (RBC) [Entitic vol] 92 fL Normal 79-97 [facility]; [facility] Work Phone: Comment on above: PATIENT WAS FASTINGP ERFORMED BY: CB [facility] Itafem3516 [address] RoadDublin [place] [id number] Monocytes (Bld) [#/Vol] 0.6 10*3/uL Normal 0.1-0.9 [facility]; [facility] Work Phone: Comment on above: PATIENT WAS FASTINGP ERFORMED BY: MAUDE [facility] Bnpxzx9807 [address] RoadDublin [place] [id number] Monocytes/100 WBC (Bld) 9 % Normal [facility]; [facility] Work Phone: Comment on above: PATIENT WAS FASTINGP ERFORMED BY: MAUDE [facility] Ullzln7487 [address] RoadDublin [place] [id number] Neutrophils (Bld) [#/Vol] 4.4 10*3/uL Normal 1.4-7.0 [facility]; [facility] Work Phone: Comment on above: PATIENT WAS FASTINGP ERFORMED BY: MAUDE [facility] Hykeee8[address] RoadDublin [place] [id number] Neutrophils/100 WBC (Bld) 66 % Normal [facility]; [facility] Work Phone: Comment on above: PATIENT WAS FASTINGP ERFORMED BY: CB [facility] Vpofou7840 [address]Dublin [place] [id number] Platelets (Bld) [#/Vol] 246 10*3/uL Normal 150-450 [facility]; [facility] Work Phone: Comment on above: PATIENT WAS FASTINGP ERFORMED BY: CB [facility] Kviutt6652 [address]Dublin [place] [id number] RBC (Bld) [#/Vol] 4.64 10*6/uL Normal 3.77-5.28 [facility]; [facility] Work Phone: Comment on above: PATIENT WAS FASTINGP ERFORMED BY: [facility] [id number] [place] [id number] WBC (Bld) [#/Vol] 6.7 10*3/uL Normal 3.4-10.8 [facility]; [facility] Work Phone: Comment on above: PATIENT WAS FASTINGP ERFORMED BY: [facility] [id number] [facility] [place] [id number] FREE TRIIDOTHYRONINE (T3) (6 0030)Ordered By: Steamer Gum Candy on 08-29-2023 Free T3 [Mass/Vol] 2.6 pg/mL Normal 2.0-4.4 [facility]; [facility] Work Phone: Comment on above: PATIENT WAS FASTINGP ERFORMED BY: [facility] [id number] [facility] [place] [id number] HGB A1C ([id number])Ordered By: S ystem Anhydrous Ammonia Production Supervisor on 08-29-2023 HbA1c (Bld) [Mass fraction] 5.7 % Abnormal 4.8-5.6 [facility]; [facility] Work Phone: Comment on above: . Prediabetes: 5.7 - 6.4 Diabetes: >6.4 Glycemic control for adults with diabetes: <7.0 PATIENT WAS FASTINGP ERFORMED BY: [facility] [id number] [facility] [id number] LIPID PANEL ([id number])Ordered B y: Steamer Gum Candy on 08-29-2023 Cholesterol [Mass/Vol] 253 mg/dL Abnormal 100-199 [facility]; [facility] Work Phone: Comment on above: PATIENT WAS FASTINGP ERFORMED BY: [facility] Ymisjp[address] [facility] [place] [id number] Cholesterol in HDL [Mass/Vol] 47 mg/dL Normal [facility]; [facility] Work Phone: Comment on above: PATIENT WAS FASTINGP ERFORMED BY: MAUDE [facility] [address]veci[address] [facility] [place] [id number] Triglyceride [Mass/Vol] 244 mg/dL Abnormal 0-149 [facility]; [facility] Work Phone: Comment on above: PATIENT WAS FASTINGP ERFORMED BY: MAUDE Lab[facility] BensonObpsxg7049 [address] [facility] [id number] LIPID PANEL (07915) 45 mg/dL Abnormal 5-40 [facility] Work Phone: Comment on above: PATIENT WAS FASTINGP ERFORMED BY: MAUDE Lab[facility]andon Cdcanr7403 [facility] [id number] LIPID PANEL (73814) 161 mg/dL Abnormal 0-99 [facility]; [facility] Work Phone: Comment on above: PATIENT WAS FASTINGP ERFORMED BY: MAUDE Labcobrandon BensonEbpdps6939 [facility] [id number] LIPID PANEL (92362) 3.4 {ratio} Abnormal 0.0-3.2 [facility]; [facility] Work Phone: Comment on above: LDL/HDL Ratio Men Wo men 1/2 Avg.Risk 1.0 1.5 Avg.Risk 3.6 3.2 2X Avg.Risk 6.2 5.0 3X Avg.Risk 8.0 6.1 PATIENT WAS FASTINGP ERFORMED BY: MAUDE [facility] Acdnfr2411 [facility] [id number] METABOLIC PANEL, COMPREHENSI VE ([id number])Ordered By: Steamer Gum Candy on 08-29-2023 Albumin [Mass/Vol] 4.4 g/dL Normal 3.8-4.9 [facility]; [facility] Work Phone: Comment on above: PATIENT WAS FASTINGP ERFORMED BY: MAUDE [facility] Sfjtse6876 [facility] [id number] Albumin/Globulin [Mass ratio] 1.8 {ratio} Normal 1.2-2.2 [facility]; [facility] Work Phone: Comment on above: PATIENT WAS FASTINGP ERFORMED BY: CB [facility] Pftnot5278 [address]Dublin [place] [id number] ALP [Catalytic activity/Vol] 54 U/L Normal 44-121 [facility]; [facility] Work Phone: Comment on above: PATIENT WAS FASTINGP ERFORMED BY: CB [facility] Evkara4[address]Dublin [place] [id number] ALT [Catalytic activity/Vol] 18 U/L Normal 0-32 [facility]; [facility] Work Phone: Comment on above: PATIENT WAS FASTINGP ERFORMED BY: CB [facility] Zaarcm0481 [address]Dublin [place] [id number] AST [Catalytic activity/Vol] 16 U/L Normal 0-40 [facility]; [facility] Work Phone: Comment on above: PATIENT WAS FASTINGP ERFORMED BY: CB [facility] Ksujyg0355 [address]Dublin [place] [id number] Bilirubin [Mass/Vol] 0.3 mg/dL Normal 0.0-1.2 [facility]; [facility] Work Phone: Comment on above: PATIENT WAS FASTINGP ERFORMED BY: CB [facility] Yokitq5[address]ublin [place] [id number] Calcium [Mass/Vol] 9.4 mg/dL Normal 8.7-10.2 [facility]; [facility] Work Phone: Comment on above: PATIENT WAS FASTINGP ERFORMED BY: CB [facility] Whfsdm1942 [address]Dublin [place] [id number] Chloride [Moles/Vol] 103 mmol/L Normal 96-106 [facility]; [facility] Work Phone: Comment on above: PATIENT WAS FASTINGP ERFORMED BY: CB [facility] Aktswh60[address]ublin [place] [id number] CO2 [Moles/Vol] 25 mmol/L Normal 20-29 [facility]; [facility] Work Phone: Comment on above: PATIENT WAS FASTINGP ERFORMED BY: MAUDE [facility] Momtxy38[address]Dublin [place] [id number] Creatinine [Mass/Vol] 1.05 mg/dL Abnormal 0.57-1.00 [facility]; [facility] Work Phone: Comment on above: PATIENT WAS FASTINGP ERFORMED BY: MAUDE [facility] Hkbdze8[address] [place] [id number] GFR/1.73 sq M.predicted among non-blacks MDRD (S/P/Bld) [Vol rate/Area] 61 mL/min/{1.73_m2} Normal [facility]; [facility] Work Phone: Comment on above: PATIENT WAS FASTINGP ERFORMED BY: MADUE Lab[facility]randon Lrwjgg4353 [address]Dublin [place] [id number] Globulin (S) [Mass/Vol] 2.4 g/dL Normal 1.5-4.5 [facility]; [facility] Work Phone: Comment on above: PATIENT WAS FASTINGP ERFORMED BY: MAUDE [facility] Uwrhdz2149 [address]Dublin [place] [id number] Glucose [Mass/Vol] 110 mg/dL Abnormal 70-99 [facility]; [facility] Work Phone: Comment on above: PATIENT WAS FASTINGP ERFORMED BY: MAUDE [facility] Vvmlyx5794 [address] [facility] [place] [id number] Potassium [Moles/Vol] 4.7 mmol/L Normal 3.5-5.2 [facility]; [facility] Work Phone: Comment on above: PATIENT WAS FASTINGP ERFORMED BY: MAUDE [facility] Btgnvk3631 [address]Dublin [place] [id number] Protein [Mass/Vol] 6.8 g/dL Normal 6.0-8.5 [facility]; [facility] Work Phone: Comment on above: PATIENT WAS FASTINGP ERFORMED BY: MAUDE [facility] Fmofpp9478 [address]Dublin [place] [id number] Sodium [Moles/Vol] 140 mmol/L Normal 134-144 [facility]; [facility] Work Phone: Comment on above: PATIENT WAS FASTINGP ERFORMED BY: CB [facility] Kbzjqu9395 [address]Dublin [place] [id number] Urea nitrogen [Mass/Vol] 15 mg/dL Normal 6-24 [facility] Medicine; [facility] Work Phone: Comment on above: PATIENT WAS FASTINGP ERFORMED BY: CB [facility] Nzvvgk0095 [address] [place] [id number] Urea nitrogen/Creatinine [Mass ratio] 14 mg/mg Normal 9- [facility] Medicine; [facility] Work Phone: Comment on above: PATIENT WAS FASTINGP ERFORMED BY: CB [facility] Atjsus6658 [address] [place] [id number] T4, FREE (THYROXINE) ([id number]) Ordered By: Steamer Gum Candy on 08-29-2023 Free T4 [Mass/Vol] 1.01 ng/dL Normal 0.82-1.77 [facility]; [facility] Work Phone: Comment on above: PATIENT WAS FASTINGP ERFORMED BY: CB [facility] Nukgrk7[address]Dublin [place] [id number] TSH ([id number])Ordered By: Purer Skine m Anhydrous Ammonia Production Supervisor on 08-29-2023 TSH Qn 1.520 {uIU/mL} Normal 0.450-4.500 [facility] Medicine; [facility] Work Phone: Comment on above: PATIENT WAS FASTINGP ERFORMED BY: [facility] Ezmkeq[address] [facility] [place] [id number] MR Lumbar spine WO contrasto n 12-22-2022 IMPRESSION: Mild lumbar spondylotic changes as mentioned without high-grade canal or foraminal stenosis. Anatomic Lumbar Variant: None. L4-5 is considered the level of the iliac crest and assume there are 5 lumbar-type vertebrae. Barn Manager: VARINDER Transcribe Date/Time: Dec 22 2022 9:03A Dictated by : DORA REYES MD This examination was interpreted and the report reviewed and electronically signed by: DORA REYES MD on Dec 22 2022 9:09AM EST [facility] * * *Final Report* * * DATE OF EXAM: Dec 22 2022 8:05AM ROM 0303 - MRI LUMBAR SPINE WO IVCON / PROCEDURE REASON: LOW BACK PAIN * * * * Physician Interpretation * * * * EXAMINATION: MRI LUMBAR SPINE WO IVCON CLINICAL HISTORY: LOW BACK PAIN TECHNIQUE: Routine lumbosacral spine MR protocol without gadolinium. MQ: [id number]_3 COMPARISON: Lumbar spine radiographs 08/09/2022 RESULT: Counting reference: Lumbosacral junction. For the purposes of this report, L4-5 is considered the level of the iliac crest and assume there are 5 lumbar-type vertebrae. Anatomic variant: None. Localizer images: Unremarkable. Alignment: Slight upper lumbar dextrocurvature. Bone marrow signal/fracture: No evidence of pathologic marrow infiltration. No evidence of prior fracture. Small chronic Schmorl's node deformities at L1 and L2 levels. Intraosseous hemangioma in T12. Conus: The conus is within normal limits of signal intensity and morphology. Paraspinal soft tissues: Paraspinal soft tissues are within normal limits. Lower thoracic spine: Visualized lower thoracic canal and foramina are patent. L1-L2: Canal and foramina are patent. L2-L3: Disc bulge with shallow broad-based right foraminal protrusion, mild ligamentum flavum and facet hypertrophy contributing to mild canal stenosis and mild bilateral neural foraminal narrowing. L3-L4: Mild annular bulging and bilateral facet hypertrophy contributing to mild bilateral foraminal narrowing. Canal is patent. L4-L5: Canal and foramina are patent L5-S1: Mild annular bulging, endplate and facet hypertrophy contributing to mild right neural foraminal narrowing and mild canal stenosis. Left foramen is patent. Sacrum and iliac wings: The visualized sacrum and iliac wings are within normal limits. [facility] Provider, Loretta Rodríguez - 12/22/2022 * * *Final Report* * * DATE OF EXAM: Dec 22 2022 8:05AM ROM 0303 - MRI LUMBAR SPINE WO IVCON / PROCEDURE REASON: LOW BACK PAIN * * * * Physician Interpretation * * * * EXAMINATION: MRI LUMBAR SPINE WO IVCON CLINICAL HISTORY: LOW BACK PAIN TECHNIQUE: Routine lumbosacral spine MR protocol without gadolinium. MQ: MRLSPWO_3 COMPARISON: Lumbar spine radiographs 08/09/2022 RESULT: Counting reference: Lumbosacral junction. For the purposes of this report, L4-5 is considered the level of the iliac crest and assume there are 5 lumbar-type vertebrae. Anatomic variant: None. Localizer images: Unremarkable. Alignment: Slight upper lumbar dextrocurvature. Bone marrow signal/fracture: No evidence of pathologic marrow infiltration. No evidence of prior fracture. Small chronic Schmorl's node deformities at L1 and L2 levels. Intraosseous hemangioma in T12. Conus: The conus is within normal limits of signal intensity and morphology. Paraspinal soft tissues: Paraspinal soft tissues are within normal limits. Lower thoracic spine: Visualized lower thoracic canal and foramina are patent. L1-L2: Canal and foramina are patent. L2-L3: Disc bulge with shallow broad-based right foraminal protrusion, mild ligamentum flavum and facet hypertrophy contributing to mild canal stenosis and mild bilateral neural foraminal narrowing. L3-L4: Mild annular bulging and bilateral facet hypertrophy contributing to mild bilateral foraminal narrowing. Canal is patent. L4-L5: Canal and foramina are patent L5-S1: Mild annular bulging, endplate and facet hypertrophy contributing to mild right neural foraminal narrowing and mild canal stenosis. Left foramen is patent. Sacrum and iliac wings: The visualized sacrum and iliac wings are within normal limits. IMPRESSION IMPRESSION: Mild lumbar spondylotic changes as mentioned without high-grade canal or foraminal stenosis. Anatomic Lumbar Variant: None. L4-5 is considered the level of the iliac crest and assume there are 5 lumbar-type vertebrae. Barn Manager: PSCB Transcribe Date/Time: Dec 22 2022 9:03A Dictated by : DORA REYES MD This examination was interpreted and the report reviewed and electronically signed by: DORA REYES MD on Dec 22 2022 9:09AM EST [facility] Radiology Study observation (narrative) [facility] MR Lumbar spine WO contrastO rdered By: [facility] Provider on 12-22-2022 [facility] MRI LUMBAR SPINE WO IVCONon 12-22-2022 MRI LUMBAR SPINE WO IVCON * * *Final Report* * * DATE OF EXAM: Dec 22 2022 8:05AM ROM 0303 - MRI LUMBAR SPINE WO IVCON / PROCEDURE REASON: LOW BACK PAIN * * * * Physician Interpretation * * * * EXAMINATION: MRI LUMBAR SPINE WO IVCON CLINICAL HISTORY: LOW BACK PAIN TECHNIQUE: Routine lumbosacral spine MR protocol without gadolinium. MQ: MRLSPWO_3 COMPARISON: Lumbar spine radiographs 08/09/2022 RESULT: Counting reference: Lumbosacral junction. For the purposes of this report, L4-5 is considered the level of the iliac crest and assume there are 5 lumbar-type vertebrae. Anatomic variant: None. Localizer images: Unremarkable. Alignment: Slight upper lumbar dextrocurvature. Bone marrow signal/fracture: No evidence of pathologic marrow infiltration. No evidence of prior fracture. Small chronic Schmorl's node deformities at L1 and L2 levels. Intraosseous hemangioma in T12. Conus: The conus is within normal limits of signal intensity and morphology. Paraspinal soft tissues: Paraspinal soft tissues are within normal limits. Lower thoracic spine: Visualized lower thoracic canal and foramina are patent. L1-L2: Canal and foramina are patent. L2-L3: Disc bulge with shallow broad-based right foraminal protrusion, mild ligamentum flavum and facet hypertrophy contributing to mild canal stenosis and mild bilateral neural foraminal narrowing. L3-L4: Mild annular bulging and bilateral facet hypertrophy contributing to mild bilateral foraminal narrowing. Canal is patent. L4-L5: Canal and foramina are patent L5-S1: Mild annular bulging, endplate and facet hypertrophy contributing to mild right neural foraminal narrowing and mild canal stenosis. Left foramen is patent. Sacrum and iliac wings: The visualized sacrum and iliac wings are within normal limits. IMPRESSION: Mild lumbar spondylotic changes as mentioned without high-grade canal or foraminal stenosis. Anatomic Lumbar Variant: None. L4-5 is considered the level of the iliac crest and assume there are 5 lumbar-type vertebrae. Barn Manager: VARINDER Transcribe Date/Time: Dec 22 2022 9:03A Dictated by : DORA REYES MD This examination was interpreted and the report reviewed and electronically signed by: DORA REYES MD on Dec 22 2022 9:09AM EST [id number] Normal [facility] CT CARDIAC SCORINGon 023 CT CARDIAC SCORING Patient Name: LISSY SALGUERO STUDY: CT CARDIAC SCORING; 11/29/2022 8:49 am INDICATION: HYPERLIPIDEMIA. COMPARISON: None. ACCESSION NUMBER(S): [id number] ORDERING CLINICIAN: GEOVANNI WILEY TECHNIQUE: Using prospective ECG gating, CT scan of the coronary arteries was performed without intravenous contrast. Coronary calcium scoring was performed according to the method of Agatston. FINDINGS: The score and distribution of calcium in the coronary arteries is as follows: LM 0, LAD 0, LCx 0, RCA 0, Total 0 The visualized mid/lower ascending thoracic aorta measures 2.8 cm in diameter. The heart is normal in size. No pericardial effusion is present. No gross evidence of mediastinal or hilar lymphadenopathy or masses is identified. Streaky subsegmental atelectasis in the lung bases dependently. IMPRESSION: 1. Coronary artery calcium score of 0*. *Coronary artery calcium scoring may be helpful in predicting the risk for future coronary heart disease events. According to the [employer] Clinical Expert Consensus Task Force, such testing provides important prognostic information in patients with more than one coronary heart disease risk factor. The coronary artery calcium score correlates with the annual risk of a non-fatal myocardial infarction or coronary heart disease . Coronary artery score Annual Risk 0-99 0.4% 100-399 1.3% >400 2.4% These three breakpoints correspond to lower, intermediate and high risk states for future coronary events. Such information should be used, along with appropriate clinical judgment, to make decisions regarding the intensity of risk factor management strategies to treat blood lipids and to modify other non-lipid coronary risk factors. Reference: [place] P et al. Circulation. 2007; 115:402-426 Electronically signed by: VINCENZO GARCIA MD [facility] Thin Prep Pap ([id number])Ordered By: Steamer Gum Candy on 11-29-2022 Thin Prep Pap ([id number]) [facility] Normal [facility]; [facility] Work Phone: Comment on above: NEGATIVE FOR INTRAEP ITHELIAL LESION OR MALIGNANCY.THIS SPECIMEN WAS RESCREENED PART OF OUR COMMERCIAL CREDIT PORTFOLIO MANAGER PROGRAM.Satisfactory for evaluation. Endocervical and/or squamous metaplasticcells (endocervical component) are present.Z01.419Z11.51Feliberto Duarte, Field Service Representative ([facility])Diane Doty, Supervisory Field Service Representative ([facility]) No. of containers..0 1 ThinPrep VialPERFORMED BY: [employer] [id number] Information: [id number] Thin Prep Pap ([id number]) . Normal [facility]; [facility] Work Phone: Comment on above: No. of containers..0 1 ThinPrep VialPERFORMED BY: [employer] [id number] Information: [id number] Thin Prep Pap ([id number]) PAPSMR Normal [facility]; [facility] Work Phone: Comment on above: The Pap smear is a s creening test designed to aid in the detection ofpremalignant and malignant conditions of the uterine cervix. It is not adiagnostic procedure and should not be used as the sole means of detectingcervical cancer. Both false-positive and false-negative reports do occur. .This liquid based ThinPrep(R) pap test was screened with theuse of an image guided system.The HPV DNA reflex criteria were not met with this specimen resulttherefore, no HPV testing was performed. . No. of containers..0 1 ThinPrep VialPERFORMED BY: [employer] [id number] Information: [id number] CNTHERAPYon 10-11-2022 CNTHERAPY OT/PT/Speech Visit (PTWS) LISSY SALGUERO ([id number]) 1965 F Date Time Provider Department 10/11/22 9:00 AM SHANT[facility] SOLOMON Date Time Provider Department Center 10/11/2022 9:00 AM SHANT[facility] MONTGOMERY Reason for Visit: PT Discharge [752] Primary Visit Diagnosis:Idiopathic scoliosis and kyphoscoliosis [M41.20] Other Visit Diagnosis:Poor posture [R29.3] Allergies As of Date: 10/11/2022 (No Known Allergies) Date Reviewed: 04/13/2020 Reviewed by: Timbo Rios - Fully Assessed Prescriptions as of 10/11/2022 - levothyroxine sodium (LEVOTHYROXINE ORAL) Take by mouth. Normal [facility] CNTHERAPYon 08-30-2022 CNTHERAPY OT/PT/Speech Visit (PTWS) LISSY SALGUERO ([id number]) 1965 F Date Time Provider Department 08/30/22 9:45 AM SHANTA SOLOMON Date Time Provider Department Center 08/30/2022 9:45 AM SHANTA MONTGOMERY Reason for Visit: Physical Therapy [503] Primary Visit Diagnosis:Idiopathic scoliosis and kyphoscoliosis [M41.20] Other Visit Diagnosis:Poor posture [R29.3] Allergies As of Date: 08/30/2022 (No Known Allergies) Date Reviewed: 04/13/2020 Reviewed by: Timbo Rios - Fully Assessed Prescriptions as of 08/30/2022 - levothyroxine sodium (LEVOTHYROXINE ORAL) Take by mouth. Normal [facility] BD DXA - AXIAL SKELETONon BD DXA - AXIAL SKELETON * * *Final Report* * * DATE OF EXAM: Aug 23 2022 9:05AM WRB 0804 - BD DXA - AXIAL SKELETON B / PROCEDURE REASON: z13.820 screening for osteoporosis, n95.1 post menopausal syndrome * * * * Physician Interpretation * * * * PROCEDURE: BD DXA - AXIAL SKELETON INDICATION: Postmenopausal. TECHNIQUE: Low dose AP spine and hip images COMPARISON: None LUMBAR SPINE: The bone mineral density from L1 through L4 is 1.120 grams per square centimeter which yields a T-score of 0.7. LEFT HIP: The bone mineral density of the total region of the hip is 0.890 grams per square centimeter which yields a T-score of -0.4. LEFT FEMORAL NECK: The bone mineral density of the femoral neck is 0.665 grams per square centimeter which yields a T-score of -1.7. 10-year Fracture Risk (FRAX): Major osteoporotic fracture risk 7.9% Hip fracture risk 0.7% IMPRESSION: Osteopenia in the left femoral neck. [facility] ORG. CLASSIFICATION OF BONE MASS CLASSIFICATION T-SCORE Normal Greater than -1 Low Bone Mass Between -1 and -2.5 (Osteopenia) Osteoporosis Less than or equal to -2.5 Barn Manager: VARINDER Transcribe Date/Time: Aug 23 2022 9:13A Dictated by : SERGEI STERN MD This examination was interpreted and the report reviewed and electronically signed by: SERGEI STERN MD on Aug 23 2022 9:14AM EST [id number] Normal [facility] CNCOon 08-23-2022 CNCO HNO ID: [id number] Author: Mammography Coordinator Service: ? Author Type: Physician Type: Letter Filed: 08/24/2022 11:32 PM Note Text: August 23, 2022 PID: [id number] Lissy Salguero [address] [place] [address] [address] [place] [address] Dear Ms. Salguero, We are pleased to inform you that the results of your recent breast imaging exam on 08/23/2022 are normal. Your mammogram demonstrates that you have dense breast tissue, which could hide abnormalities. Dense breast tissue, in and of itself, is a relatively common condition. Therefore, this information is not provided to cause undue concern; rather, it is to raise your awareness and promote discussion with your health care provider regarding the presence of dense breast tissue in addition to other risk factors. Early detection of cancer is very important. We also understand recommendations regarding breast cancer screening are controversial. Please discuss with your primary care provider which strategy is best for you and whether a mammogram is right for you. Your imaging studies and report will be kept on file at [facility] as part of your permanent medical record and are available for your continuing care. Thank you for allowing us to help in meeting your health care needs. Sincerely, Dr. James Interpreting Radiologist [facility] (Normal over 40) Normal [facility] SCREENINGon 08-23-[address] [facility] SCREENING * * *Final Report* * * DATE OF EXAM: Aug 23 2022 8:19AM [facility] 0581 - [facility] SCREENING / PROCEDURE REASON: z12.31 screening mammogram for breast cancer * * * * Physician Interpretation * * * * RESULT: #[id number] - [facility] SCREENING BILATERAL DIGITAL SCREENING MAMMOGRAM WITH CAD: 08/23/2022 HISTORY: Z12.31 Screening Mammogram For Breast Cancer /Screening Mammogram-Patient reports NO symptoms. /Patient has signed release for outside images that is [facility] [place] / [employer] NOTE. RESULT: TECHNIQUE: The study was acquired using full field digital technology and interpreted from soft copy. Current study was also evaluated with a Computer Aided Detection (CAD). No prior exams were available for comparison. The tissue of both breasts is heterogeneously dense. This may lower the sensitivity of mammography. No significant masses, calcifications, or other findings are seen in either breast. IMPRESSION: NEGATIVE There is no mammographic evidence of malignancy. A 1 year screening mammogram is recommended. The exam was reviewed by a staff physician. SUMMARY: If the patient's prior breast imaging studies become available, an addendum will be dictated after the comparison is made. Clara borges,marcelo/reed: 2 10:57:47 Medical Laboratory Scientist(s): Zo Liriano [facility] [place] letter sent: Normal over 40 Mammogram BI-RADS: 1 Negative Multiple national specialty organizations have released breast cancer screening guidelines for women at average risk for developing breast cancer - guidelines that are based on both evidence and opinion, yet differ on when to start and how often to screen for breast cancer. With representation from Breast Imaging, Internal Medicine, Women's Health, Family Medicine, and Medical/Surgical Oncology, the [facility] has carefully reviewed the data and reached the following consensus: 1) All women should engage in shared decision-making with their providers to decide when to start and how often to screen; 2) All women should have the opportunity to start screening mammography at age 40; 3) For women ages 45-55, we recommend annual screening mammograms; 4) For women ages 55 and over, we support both the transition from an annual to a biennial interval if this aligns more with patient's values and preferences, or continuation with annual screening; 5) All women should discuss with their providers when to stop screening mammograms. Barn Manager: Reed Transcribe Date/Time: Aug 23 2022 8:01A Dictated by: NOREEN BLANCO, DO This examination was interpreted and the report reviewed and electronically signed by: CLARA JAMES MD on Aug 23 2022 10:57AM EST [id number] Normal [facility] CNTHERAPYon 08-16-2022 CNTHERAPY OT/PT/Speech Visit (PTWS) LISSY SALGUERO ([id number]) 1965 F Date Time Provider Department 08/16/22 7:30 AM SHANTA SOLOMON Date Time Provider Department Center 08/16/2022 7:30 AM SHANTA MONTGOMERY Reason for Visit: Physical Therapy [503] Primary Visit Diagnosis:Idiopathic scoliosis and kyphoscoliosis [M41.20] Other Visit Diagnosis:Poor posture [R29.3] Allergies As of Date: 08/16/2022 (No Known Allergies) Date Reviewed: 04/13/2020 Reviewed by: Timbo Rios - Fully Assessed Prescriptions as of 08/16/2022 - levothyroxine sodium (LEVOTHYROXINE ORAL) Take by mouth. Normal [facility] CNTHERAPYon 08-09-2022 CNTHERAPY OT/PT/Speech Visit (PTWS) LISSY SALGUEOR ([id number]) 1965 F Date Time Provider Department 08/09/22 7:30 AM SHANTA SOLOMON Date Time Provider Department Center 08/09/2022 7:30 AM SHANTA MONTGOMERY Reason for Visit: Physical Therapy [503] Primary Visit Diagnosis:Idiopathic scoliosis and kyphoscoliosis [M41.20] Other Visit Diagnosis:Poor posture [R29.3] Allergies As of Date: 08/09/2022 (No Known Allergies) Date Reviewed: 04/13/2020 Reviewed by: Timbo Rios - Fully Assessed Prescriptions as of 08/09/2022 - levothyroxine sodium (LEVOTHYROXINE ORAL) Take by mouth. Normal [facility] No Panel Informationon 08-09 [place] [facility] XR CERVICAL 4V AP/LAT/OBLon 08-09-2022 XR CERVICAL 4V AP/LAT/OBL * * *Final Report* * * DATE OF EXAM: Aug 09 2022 8:45AM [id number] - XR CERVICAL 4V AP/LAT/OBL / PROCEDURE REASON: cervical radiculapathy * * * * Physician Interpretation * * * * EXAMINATION: XR CERVICAL 4V AP/LAT/OBL HISTORY: Neck pain. Cervical radiculopathy. Negative trauma. TECHNIQUE: XR CERVICAL 4V AP/LAT/OBL Laterality: NOT APPLICABLE Number of different views (projections): 4 M: XB_1 COMPARISON: There are no prior relevant examinations available for comparison within the [facility] Imaging Archives. RESULT: 4 views of the cervical spine demonstrate multilevel degenerative change with vertebral body osteophytosis. The intervertebral disc spaces are preserved. There are no vertebral body compression deformities and alignment is well maintained. Bilateral obliques demonstrate mild foraminal narrowing at C4-5 and C7-T1 on the left. Moderate to severe foraminal narrowing is noted at C3-4 and C5-6 on the left. The right neuroforamina are reasonably maintained.. The atlantoaxial interval and craniocervical junction are intact. There is no prevertebral soft tissue abnormality. IMPRESSION: Degenerative changes as detailed in report. Barn Manager: PSCB Transcribe Date/Time: Aug 09 2022 12:08P Dictated by : BABS HENRY MD This examination was interpreted and the report reviewed and electronically signed by: BABS HENRY MD on Aug 09 2022 12:10PM EST [id number] Normal [facility] XR LUMBAR 3V AP/LAT/L5-S1on 08-09-2022 XR LUMBAR 3V AP/LAT/L5-S1 * * *Final Report* * * DATE OF EXAM: Aug 09 2022 8:45AM [id number] - XR LUMBAR 3V AP/LAT/L5-S1 / PROCEDURE REASON: cervical radiculapathy * * * * Physician Interpretation * * * * EXAMINATION: XR LUMBAR 3V AP/LAT/L5-S1 HISTORY: Chronic back pain. TECHNIQUE: XR LUMBAR 3V AP/LAT/L5-S1 Laterality: NOT APPLICABLE Number of different views (projections): 3 M: XB_1 COMPARISON: There are no prior relevant examinations available for comparison within the [facility] Archives. RESULT: Counting reference: Lumbosacral junction. For the purposes of this report, L5-S1 is considered the last lumbar-type disc space and L4-5 is considered the level of the iliac crest. 3 Views of the lumbosacral spine with AP, lateral and cone-down radiographs demonstrate subtle dextrocurvature of the lumbar spine. There is mild multilevel degenerative change with vertebral body osteophytosis. There is subtle intervertebral disc space narrowing at L5-S1 levels. There is hypertrophic facet change at at the lower 2 levels. There are no compression fractures and alignment is well maintained. The soft tissues are unremarkable. IMPRESSION: Mild degenerative change as detailed in report. Barn Manager: PSCB Transcribe Date/Time: Aug 09 2022 12:05P Dictated by : BABS HENRY MD This examination was interpreted and the report reviewed and electronically signed by: BABS HENRY MD on Aug 09 2022 12:08PM EST [id number] Normal [facility] CNTHERAPYon 07-19-2022 CNTHERAPY OT/PT/Speech Visit (PTWS) DENISEPABLOLISSY ([id number]) 1965 F Date Time Provider Department 07/19/22 8:15 AM SHANTA SOLOMON Date Time Provider Department [place] 07/19/2022 8:15 AM [id number] SOLOMON Reason for Visit: PT Eval [747] Patient Education [91] Primary Visit Diagnosis:Idiopathic scoliosis and kyphoscoliosis [M41.20] Other Visit Diagnosis:Poor posture [R29.3] Allergies As of Date: 07/19/2022 (No Known Allergies) Date Reviewed: 04/13/2020 Reviewed by: Timbo Rios - Fully Assessed Prescriptions as of 07/19/2022 - levothyroxine sodium (LEVOTHYROXINE ORAL) Take by mouth. Normal [facility] Laboratory - Cytologyon Cytology report Cyto stain.thin prep Doc (Cvx/Vag) [facility] Work Phone: MANAGER LOCAL - Office Visiton MANAGER LOCAL - Office Visit Diagnoses/Problems Health Maintenance/Risks Encounter for preventive health examination (V70.0) (Z00.00) Assessed Encounter for Papanicolaou smear of cervix (V76.2) (Z12.4) Women's annual routine gynecological examination (V72.31) (Z01.419) Orders PAP INFORMATION TECHNOLOGY COORDINATOR, Cytology; Status:In Progress - Specimen/Data Collected,Retrospective Authorization; Done: 07Sep2021 Last Menstrual Period (LMP): : Menopause PAP - Site : CERVICAL Cytology Order : ThinPrep PAP, Screening, HPV Reflex - Include Genotyping Tobacco Use Screening; Status:Complete; Done: 07Sep2021 Provider Impressions 1. Annual exam Patient had her screening mammogram in March. Follow-up in 1 year or as needed. Chief Complaint New Patient is here for her yearly exam and pap test. Menopause in 2016. Patient does not do self breast exams and has no concerns at this time. History of Present IllnessPresents for annual exam. She voices no complaints and is doing well. Denies any bowel or bladder problems. Denies any breast problems. Denies any postmenopausal bleeding. Review of Systems Review of Systems: Constitutional: No fever or chills Respiratory: No shortness of breath, or cough Cardiovascular: No chest pain or syncope Breasts: No breast pain, no masses, no nipple discharge Gastrointestinal: No nausea, vomiting, or diarrhea, no abdominal pain Genitourinary: No dysuria or frequency Gynecology: Negative except as noted in history of present illness All other: All other systems reviewed and negative for complaint Active Problems Problems Encounter for Papanicolaou smear of cervix (V76.2) (Z12.4) Women's annual routine gynecological examination (V72.31) (Z01.419) Past Medical History Problems History of mammogram (V15.89) (Z92.89) 05/2021 History of menopause (V49.81) (Z78.0) 2015 History of miscarriage (V13.29) (Z87.59) 1992 History of Menstruation Onset age 11 years Surgical History Problems History of Knee surgery 2020: Left Family History Mother Family history of asthma (V17.5) (Z82.5) Family history of hypertension (V17.49) (Z82.49) Family history of osteoporosis (V17.81) (Z82.62) Family history of thyroid disease (V18.19) (Z83.49) Father Family history of cardiac disorder (V17.49) (Z82.49) Family history of diabetes mellitus (V18.0) (Z83.3) Family history of hypertension (V17.49) (Z82.49) Sister Family history of asthma (V17.5) (Z82.5) Family history of diabetes mellitus (V18.0) (Z83.3) Brother Family history of diabetes mellitus (V18.0) (Z83.3) Maternal Grandmother Family history of diabetes mellitus (V18.0) (Z83.3) Paternal Grandmother Family history of malignant neoplasm of breast (V16.3) (Z80.3) Social History Problems Consumes alcohol occasionally (V49.89) (Z78.9) No illicit drug use Non-smoker (V49.89) (Z78.9) Sexually active Allergies Medication No Known Drug Allergies Recorded By: Ellie Velazco; 09/07/2021 8:41:43 AM NonMedication Dust Recorded By: Ellie eVlazco; 09/07/2021 8:41:43 AM Mold Recorded By: Ellie Velazco; 09/07/2021 8:41:43 AM Current Meds Medication NameInstruction Vitamin D-3 TABS Womens Multivitamin Plus TABS Vitals Vital Signs Recorded: 07Sep2021 08:40AM Elzemhvygri28.2 F Kzlakaef300 Ljfcskrxp00 Height5 ft 8 in Seeuhj95.6 kg BMI Yqupayevhd73.67 kg/m2 BSA Calculated1.84 Tobacco Useb) No LMPMenopause Physical Exam PHYSICAL EXAMINATION: Well-developed, well nourished, in no acute distress, alert and oriented x three, is pleasant and cooperative. HEENT: Clear. Pupils equal, round and reactive to light and accommodation. Extraocular muscles are intact. Oral mucosa pink without exudate. NECK: No lymphadenopathy, no thyromegaly. BREASTS: Symmetric, no palpable masses. No nipple discharge or retraction. LUNGS: Clear bilaterally. HEART: Regular rate and rhythm without murmurs. ABDOMEN: Normoactive bowel sounds, soft and nontender, no guarding or rebound tenderness, no CVA tenderness. EXTREMITIES: No clubbing, cyanosis or edema. NEUROLOGIC: Cranial nerves II-XII grossly intact. : Normal external female genitalia, normal vulva, normal vagina. Normal urethral meatus, urethra and bladder. Normal appearing cervix. Normal-sized uterus, no adnexal masses or tenderness. Pap smear performed today. Signatures Electronically signed by : Feliberto Doe MD; Sep 07 2021 8:48AM EST (Author) Normal [facility] Tobacco Screening.on 021 Last menstrual period start date Menopause [facility] [address] [employer] Work Phone: Tobacco use status [facility] b) No [facility] [address] [place] Work Phone: US Head/Neck Soft Tissueon 0 07-31-2017 US Head/Neck Soft Tissue Exam Date/Time:07/31/2017 14:35 EDTReason for Exam:NECK LUMPReportULTRASOUND NECK:HISTORY: Neck lump.FINDINGS: The anterior and lateral aspects of the neck were examinedbilaterally with ultrasound. No lymphadenopathy is seen.Both lobes of the thyroid are normal in echogenicity and in size. The rightthyroid lobe measures 3.5 x 1 x 1 cm and the left 3.1 x 1.1 x 0.9 cm. A benignnodule is seen in the posterior aspect of the mid left lobe, measuring 3 x 2 mmsize.IMPRESSION:Cortney l examination. No mass lesion. FINAL REPORT Dictated: 07/31/2017 4:26 pm Kenroy Chauhan MD KSigned (Electronic Signature): 07/31/2017 4:26 pmSigned by: Kenroy Chauhan MD Technologist: [facility] [place] Mamm Screen w/CAD if perf ormed bilaton 07-26-2017 Bilirubin (direct) Exam Date/Time:07/25/2017 11:47 EDTReason for Exam:SCREENINGReportMA MAMM SCREEN W/CAD IF PERFORMED BILATCLINICAL STATEMENT: Asymptomatic screening. No prior breast surgeries. Familyhistory of breast cancer including a paternal grandmother.TECHNIQUE: Digital craniocaudal and mediolateral oblique views of the right andleft breast were obtained. CAD was reviewed.COMPARISON: 01/05/2012, 08/04/2005.BREAST TISSUE: The breasts are extremely dense, which lowers the sensitivity ofmammography.FINDINGS: The breasts appear symmetric in size. Glandular distribution appearssymmetric. A few benign-appearing calcifications are seen in the breastsbilaterally. The breasts demonstrate suspicious grouped calcifications,developi ng mass, or architectural distortion is seen.IMPRESSION:No mammographic evidence of malignancy.BI-RADS 2 - Benign, no evidence of malignancy. Normal interval followup isrecommended in 12 months.OVERALL ASSESSMENT- BENIGNA letter of notification will be sent to the patient regarding the results.The [place] and the [employer] recommendannual mammograms for women 40 years and older.Assessment / Recommendation: 2-1 Normal interval follow-upBreast density: Homogeneously / Extremely DenseExam Date/Time:07/25/2017 11:47 EDTReportRecall interval: 012 months FINAL REPORT Dictated: 07/26/2017 8:13 am Franklin Lawrence DO PSigned (Electronic Signature): 07/26/2017 8:13 amSigned by: Franklin Lawrence DO Technologist: Emessment: BI-RADS Category 2-Benign findingRecommendation: Normal interval follow-up Normal [facility] OPERATIVE NOTEon 06-05-2017 OPERATIVE NOTE OPERATIVE NOTEOPERAT ION DATE: 4-36-04AUJQHASTHT:IV sedation.PREOPERATIVE DIAGNOSIS:Screening colonoscopy.POSTOPERATI VE DIAGNOSIS:Unremarkable colonoscopy.PROCEDURE NAME:Colonoscopy to the cecum.ESTIMATED BLOOD LOSS: None.COMPLICATIONS: None.DISPOSITION: To the Recovery Room in stable condition.PROCEDURE: The patient was brought to the Endoscopy Suite where monitoringdevices were attached. She was sedated, prepped and draped in the usual fashionfor this procedure. A digital rectal examination demonstrated no mucosalabnormalities. An Olympus colonoscope was inserted into the rectal vault andadvanced under direct visualization through to the cecum. It was then carefullywithdrawn. The cecum, ascending, transverse, descending and sigmoid colons wereunremarkable. There was a section of spastic colon noted in the transversecolon but this resolved with continued insufflation. In the rectal vault thescope was retroverted and no mucosal abnormalities were seen. The scope waswithdrawn. The patient tolerated the procedure well and was taken to theRecovery Room in stable condition. She should undergo repeat colonoscopy in 7years. Normal [facility] Vital Signs Date Time Vital Sign Value Performing Clinician Facility 09-15-2025 07:28-0500 Body height 171.5 cm Jaquelin Ottkatarina JENNINGS Work Phone: [facility] 09-15-2025 07:28-0500 Body mass index (BMI) [Ratio] 22.22 kg/m2 Jaquelin Chanel JENNINGS Work Phone: [facility] 09-15-2025 07:28-0500 Body temperature 97.9 [degF] Jaquelin Buchanan CNP Work Phone: [facility] 09-15-2025 07:28-0500 Body weight 65.32 kg Jaquelin Buchanan CNP Work Phone: [facility] 09-15-2025 07:28-0500 Diastolic blood pressure 76 mm[Hg] Jaquelin Buchanan CNP Work Phone: [facility] 09-15-2025 07:28-0500 Heart rate 78 /min Jaquelin Buchanan CNP Work Phone: [facility] 09-15-2025 07:28-0500 Respiratory rate 16 /min Jaquelin Buchanan CNP Work Phone: [facility] 09-15-2025 07:28-0500 SaO2% (BldA) [Mass fraction] 98 % Jaquelin Buchanan CNP Work Phone: [facility] 09-15-2025 07:28-0500 Systolic blood pressure 131 mm[Hg] Jaquelin Buchanan INSTRUCTIONAL DEVELOPER Work Phone: [facility] 08-08-2023 08:55-0400 Body height 173.35 cm Ana Rosa Briseno [facility] Work Phone: 08-08-2023 08:55-0400 Body mass index (BMI) [Ratio] 23.7 kg/m2 [facility] Work Phone: 08-08-2023 08:55-0400 Body surface area Derived from formula 1.85 m2 Ana Rosa Briseno [facility] Work Phone: 08-08-2023 08:55-0400 Body temperature 98.4 [degF] Ana Rosa Briseno [facility] Work Phone: Comment on above: Method: Thermal Scan 08-08-2023 08:55-0400 Body weight 71.22 kg Ana Rosa Briseno [facility] Work Phone: 08-08-2023 08:55-0400 Diastolic blood pressure 70 mm[Hg] Ana Rosa Finn [facility] Work Phone: Comment on above: Patient Position: Sitting; Cuff Location : Left Arm; Cuff Size: Standard 08-08-2023 08:55-0400 Heart rate 91 /min Ana Rosa Carbajal[facility] [facility] Work Phone: Comment on above: Pattern: Regular 08-08-2023 08:55-0400 Respiratory rate 16 /min Ana Rosa Briseno [facility] Work Phone: Comment on above: Pattern: Unlabored 08-08-2023 08:55-0400 SaO2% (BldA) [Mass fraction] 98 % Ana Rosa Briseno [facility] Work Phone: Comment on above: Room air 08-08-2023 08:55-0400 Systolic blood pressure 116 mm[Hg] Ana Rosa Finn [facility] Work Phone: Comment on above: Patient Position: Sitting; Cuff Location : Left Arm; Cuff Size: Standard 03-28-2023 10:58-0400 Body height 173.35 cm Saba Lowery MA [facility] Work Phone: 03-28-2023 10:58-0400 Body mass index (BMI) [Ratio] 23.24 kg/m2 Saba Lowery MA [facility] Work Phone: 03-28-2023 10:58-0400 Body surface area Derived from formula 1.83 m2 Saba Lowery MA [facility] Work Phone: 03-28-2023 10:58-0400 Body temperature 95.8 [degF] Saba Lowery MA [facility] Work Phone: 03-28-2023 10:58-0400 Body weight 69.85 kg Saba Lowery MA [facility]; [facility] Work Phone: 03-28-2023 10:58-0400 Diastolic blood pressure 70 mm[Hg] Saba Lowery MA [facility] Work Phone: Comment on above: Patient Position: Sitting; Cuff Location : Left Arm; Cuff Size: Standard 03-28-2023 10:58-0400 Heart rate 81 /min Saba Lowery MA [facility]; [facility] Work Phone: Comment on above: Pattern: Regular 03-28-2023 10:58-0400 SaO2% (BldA) [Mass fraction] 97 % Saba Lowery MA [facility]; [facility] Work Phone: Comment on above: Room air 03-28-2023 10:58-0400 Systolic blood pressure 110 mm[Hg] Saba Lowery MA [facility]; [facility] Work Phone: Comment on above: Patient Position: Sitting; Cuff Location : Left Arm; Cuff Size: Standard 11-29-2022 13:28-0500 Body height 173.35 cm [facility] Work Phone: 11-29-2022 13:28-0500 Body mass index (BMI) [Ratio] 23.24 kg/m2 Ana Rosa Marco [facility] Work Phone: 11-29-2022 13:28-0500 Body surface area Derived from formula 1.83 m2 [facility] Work Phone: 11-29-2022 13:28-0500 Body temperature 98.9 [degF] [facility] Work Phone: Comment on above: Method: Thermal Scan 11-29-2022 13:28-0500 Body weight 69.85 kg Ana Rosa Marco [facility]oconner [facility] Work Phone: 11-29-2022 13:28-0500 Diastolic blood pressure 68 mm[Hg] Ana Rosa Briseno [facility] Work Phone: Comment on above: Patient Position: Sitting; Cuff Location : Left Arm; Cuff Size: Standard 11-29-2022 13:28-0500 Heart rate 100 /min Ana Rosa Briseno [facility] Work Phone: Comment on above: Pattern: Regular 11-29-2022 13:28-0500 Respiratory rate 16 /min Ana Rosa Briseno [facility] Work Phone: Comment on above: Pattern: Unlabored 11-29-2022 13:28-0500 Systolic blood pressure 112 mm[Hg] Ana Rosa Briseno [facility] Work Phone: Comment on above: Patient Position: Sitting; Cuff Location : Left Arm; Cuff Size: Standard 11-22-2022 08:55-0500 Body height 173.35 cm Ana Rosa Briseno [facility] Work Phone: 11-22-2022 08:55-0500 Body mass index (BMI) [Ratio] 23.24 kg/m2 [facility] Work Phone: 11-22-2022 08:55-0500 Body surface area Derived from formula 1.83 m2 Ana Rosaeliza Briseno [facility]; [facility] Work Phone: 11-22-2022 08:55-0500 Body temperature 99 [degF] Ana Rosa Briseno [facility] Work Phone: Comment on above: Method: Thermal Scan 11-22-2022 08:55-0500 Body weight 69.85 kg [facility] Work Phone: 11-22-2022 08:55-0500 Diastolic blood pressure 72 mm[Hg] Ana Rosa Briseno [facility] Work Phone: Comment on above: Patient Position: Sitting; Cuff Location : Left Arm; Cuff Size: Standard 11-22-2022 08:55-0500 Heart rate 84 /min Ana Rosa Briseno [facility] Work Phone: Comment on above: Pattern: Regular 11-22-2022 08:55-0500 Respiratory rate 16 /min Ana Rosa Briseno [facility] Work Phone: Comment on above: Pattern: Unlabored 11-22-2022 08:55-0500 Systolic blood pressure 118 mm[Hg] Ana Rosa Briseno [facility] Work Phone: Comment on above: Patient Position: Sitting; Cuff Location : Left Arm; Cuff Size: Standard 09-06-2022 10:08-0400 Body height 173.35 cm Ana Rosa Briseno [facility] Work Phone: 09-06-2022 10:08-0400 Body mass index (BMI) [Ratio] 23.4 kg/m2 Ana Rosa Briseno [facility] Work Phone: 09-06-2022 10:08-0400 Body surface area Derived from formula 1.84 m2 [facility] Work Phone: 09-06-2022 10:08-0400 Body temperature 98.9 [degF] Ana Rosa Briseno [facility] Medicine; [facility] Work Phone: Comment on above: Method: Thermal Scan 09-06-2022 10:08-0400 Body weight 70.31 kg Ana Rosa Briseno [facility] Work Phone: 09-06-2022 10:08-0400 Diastolic blood pressure 64 mm[Hg] Ana Rosa Briseno [facility] Work Phone: Comment on above: Patient Position: Sitting; Cuff Location : Left Arm; Cuff Size: Standard 09-06-2022 10:08-0400 Heart rate 72 /min Ana Rosaeliza Briseno [facility] Work Phone: Comment on above: Pattern: Regular 09-06-2022 10:08-0400 Respiratory rate 16 /min Ana Rosa Briseno [facility] Work Phone: Comment on above: Pattern: Unlabored 09-06-2022 10:08-0400 Systolic blood pressure 112 mm[Hg] Ana Rosa Briseno [facility] Work Phone: Comment on above: Patient Position: Sitting; Cuff Location : Left Arm; Cuff Size: Standard 09-07-2021 08:40-0400 Body height 172.72 cm Jorje Paulson Work Phone: [facility] Work Phone: 09-07-2021 08:40-0400 Body mass index (BMI) [Ratio] 23.67 kg/m2 Jorje Paulson Work Phone: [facility] [address] [place] Work Phone: 09-07-2021 08:40-0400 Body surface area Derived from formula 1.84 m2 Jorje Paulson Work Phone: [employer] Work Phone: 09-07-2021 08:40-0400 Body temperature 98.2 [degF] Jorje Paulson Work Phone: [facility] [address] [place] Work Phone: 09-07-2021 08:40-0400 Body weight 70.6 kg Jorje Paulson Work Phone: [facility] [address] [place] Work Phone: 09-07-2021 08:40-0400 Diastolic blood pressure 78 mm[Hg] Jorje Paulson Work Phone: [facility] [address] [place] Work Phone: 09-07-2021 08:40-0400 Systolic blood pressure 132 mm[Hg] Jorje Paulson Work Phone: [address] Work Phone: Encounters Encounter Date Encounter Type Care Provider Facility Start: 09-30-2025 ambulatory [facility] Facility:[facility] Start: 09-15-2025 End: 09-15-2025 Office outpatient new 30 minutes Jaquelin Buchanan INSTRUCTIONAL DEVELOPER Work Phone: [facility] Pre Admission Testing Comment on above: Pre-op testing (Prim meenakshi Dx); Myogenic ptosis of eyelid of both eyes; Rosacea; Hypothyroidism, unspecified type Start: 09-15-2025 End: 09-15-2025 Patient encounter status Jaquelin Francoisabdias Buchanan INSTRUCTIONAL DEVELOPER Work Phone: [facility] Work Phone: Start: 09-15-2025 End: 09-15-2025 ambulatory FABY MCCARTNEY [facility] Start: 09-15-2025 End: 09-15-2025 Encounter for other preprocedural examination [facility] Start: 08-19-2025 End: 08-19-2025 ambulatory [facility] Facility:[facility] Start: 07-30-2024 End: 07-30-2024 Orders Only Selwyn Oshea MD Work Phone: Orthopaedics Comment on above: Pain in right wrist (Primary Dx) Start: 01-10-2024 End: 01-10-[address] Geovanni Wiley Work Phone: [facility] Work Phone: Start: 01-10-2024 End: 01-10-[address] Geovanni Wiley Work Phone: [facility]-Physical Therapy Work Phone: Start: 01-09-2024 Non-patient / Non-visit Dr. Olvera Work Phone: [facility] Start: 01-09-2024 End: 01-09-[address] Geovanni Wiley Work Phone: [facility] Work Phone: Start: 01-09-2024 End: 01-09-[address] Geovanni Wiley Work Phone: [facility] Work Phone: Start: 12-29-[address] Geovanni Wiley Work Phone: [facility] Work Phone: Start: 08-08-2023 End: 08-08-2023 Office outpatient visit 15 minutes Geovanni Fast DO Work Phone: [facility] Start: 08-08-2023 Review Geovanni Fast DO Work Phone: [facility] Start: 04-14-2023 Review Geovanni Fast DO Work Phone: [facility] Start: 03-28-2023 End: 04-03-2023 Office outpatient visit 25 minutes Geovanni Fast DO Work Phone: [facility] Start: 03-22-2023 End: 03-22-2023 Prescription Refill Geovanni Fast DO Work Phone: [facility] Start: 02-28-2023 End: 02-28-[address] Geovanni Wiley Work Phone: [facility] Work Phone: Start: 02-28-2023 End: 02-28-[address] Geovanni Wiley Work Phone: [facility]-Radiology, [facility] Start: 02-28-2023 End: 04-07-2023 Phone Encounter Geovanni Fast DO Work Phone: [facility] Start: 02-28-2023 Review Geovanni Fast DO Work Phone: [facility] Start: 02-08-2023 End: 02-08-2023 Phone Encounter Geovanni Fast DO Work Phone: [facility] Start: 02-06-2023 End: 02-06-2023 Phone Encounter Geovanni Fast DO Work Phone: [facility] Start: 01-31-2023 End: 01-31-2023 Phone Encounter Geovanni Fast DO Work Phone: [facility] Start: 01-23-2023 Non-patient / Non-visit Dr. Beckford Fast Work Phone: [facility] Start: 01-23-2023 End: 01-23-[address] Geovanni Wiley Work Phone: [facility] Work Phone: Start: 01-23-2023 End: 01-23-[address] 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 Geovanni Wiley Facili ty:[id number] Start: 11-22-2022 ambulatory Geovanni Wiley DO Compre[facility] Start: 11-22-2022 Review Geovanni Fast DO Work Phone: [facility] Start: 10-14-2022 End: 10-14-2022 Phone Encounter Geovanni Fast DO Work Phone: [facility] Start: 10-11-2022 End: 10-11-2022 ambulatory Shanta Solomon PT Work Phone: [facility] Comment on above: Idiopathic scoliosis and kyphoscoliosis (Primary Dx); Poor posture Start: 10-03-2022 End: 01-17-2023 Phone Encounter Geovanni Fast DO Work Phone: [facility] Start: 10-03-2022 Review Geovanni Fast DO Work Phone: [facility] Start: 09-27-2022 End: 09-27-2022 ambulatory [facility] Work Phone: Start: 09-27-2022 End: 09-27-2022 Patient encounter procedure [facility] Start: 09-23-2022 End: 09-23-2022 Phone Encounter Geovanni Fast DO Work Phone: [facility] Start: 09-12-2022 End: 09-19-2022 Phone Encounter Geovanni Fast DO Work Phone: [facility] Start: 09-06-2022 End: 09-11-2022 Office outpatient new 60 minutes Geovanni Fast DO Work Phone: [facility] Start: 08-30-2022 End: 08-30-2022 [facility] Start: 08-30-2022 End: 08-30-2022 ambulatory Shantacharley LutzSolomon PT Work Phone: [facility] Comment on above: Idiopathic scoliosis and kyphoscoliosis (Primary Dx); Poor posture Start: 08-23-2022 Documentation procedure Mammog adriel Coordinator [facility] Start: 08-23-2022 Letter encounter Mammography Coordinator [facility] Department Start: 08-23-2022 End: 08-23-2022 ambulatory JORJE PAULSON Facility:[facility] Start: 08-23-2022 End: 08-23-2022 Subsequent hospital visit by physician Bone Density [facility] Work Phone: Radiology Start: 08-23-2022 End: 08-23-2022 Subsequent hospital visit by physician Screen Mammo [facility] Mammogram Start: 08-16-2022 End: 08-16-2022 ambulatory JORJE PAULSON Facility:[facility] Start: 08-09-2022 End: 08-09-2022 ambulatory JORJE PAULSON Facility:[facility] Start: 08-09-2022 End: 08-09-2022 Subsequent hospital visit by physician [facility] [employer] Work Phone: Radiology Start: 08-09-2022 End: 08-09-2022 ambulatory Shanta Solomon PT Work Phone: [facility] Comment on above: Idiopathic scoliosis and kyphoscoliosis (Primary Dx); Poor posture Start: 07-19-2022 End: 07-19-2022 ambulatory JORJE PAULSON Facility:[facility] Start: 07-19-2022 End: 07-19-2022 ambulatory Shanta Solomon PT Work Phone: [facility] Comment on above: Idiopathic scoliosis and kyphoscoliosis (Primary Dx); Poor posture Start: 09-14-2021 Chart Update Jorje Yovanny Jenny er Work Phone: [employer] Work Phone: Start: 09-07-2021 Initial preventive medicine new patient 40-64yrs Jorje Paulson Work Phone: [employer] Work Phone: Start: 07-31-2017 End: 08-01-2017 Ambulatory Jorje Canasfilomena Facility:[facility] Start: 07-25-2017 End: 07-26-2017 Ambulatory Henryneal Paulson Facility:[facility] Start: 06-05-2017 End: 06-05-2017 Ambulatory [facility] Facility: Patient encounter procedure Jorje Paulson Work Phone: [employer] Work Phone: End: 03-28-2023 Patient encounter procedure Geovanni A Fast DO Work Phone: [facility]; [facility] Work Phone: Procedures Date Procedure Procedure Detail Performing Clinician Start: 02-28-2023 End: 03-01-2023 Cerv Spine 2 or 3 Views Procedure Note: See Note; NOTES: [facility] [address] [place] [address] Cerv Spine 2 or 3 Views MR#: [id number] Acct: [id number] Name: LISSY SALGUERO Rep #: [id number] : 1965 F 58 From: Otilia Zepeda PCP: Dr. Geovanni Wiley DO Status: REG CLI Study: Cerv Spine 2 or 3 Views Date of Exam: 02/28/23 Exam# [id number] Ordering Dr: Geovanni Wiley DO INDICATION: DEGENERATIVE DISC DISEASE PAIN AND STIFFNESS, N/T INTO BILAT HANDS, NKI EXAMINATION/TECHNIQUE: X-RAY - XR Spine Cervical 2 or 3 Views COMPARISON: FINDINGS: Vertebral bodies are normal in height. No fracture demonstrated. No subluxation. C1-2 alignment is maintained. Mild disc space narrowing with osteophytes C4-C6. Tiny fragment adjacent to the anterior-inferior corner of C5 appears well-corticated and likely related to an osteophyte or possibly prior trauma. Mild facet arthropathy at the lower levels C5-C7. Prevertebral soft tissues are unremarkable. RAD/Cerv Spine 2 or 3 Views IMPRESSION: No evidence of fracture or subluxation. Mild degenerative changes. MRI may be helpful for further evaluation. Electronically Signed: Otilia Mclean MD at 7:57 EDT , CC: Dr. Geovanni Wiley DO Barn Manager: Signed Geovanni Wiley DO Work Phone: Start: 02-28-2023 X-ray of cervical spine Dr. Geovanni Wiley Work Phone: Start: 01-23-2023 End: 01-23-2023 NCS and/or EMG Patient Procedure Note: See Note; NOTES: [facility] Pulmonary Services/Neurology [address] [place] [address] MR#: [id number] Acct: [id number] Name: LISSY SALGUERO Rep #: [id number] : 1965 57 From: Max Camacho DO Referring Dr: Status: REG CLI Location: PSN Date: 01/23/23 Sex: F C NCS and/or EMG Patient Report Ordering Doctor: Geovanni Wiley DATE OF SERVICE: 01/23/23 Indication: Bilateral hand tingling and numbness (digits 2-4) for several years. Chronic right sided neck pain. Evaluate for cervical radiculopathy and/or entrapment neuropathy. Findings: Nerve conduction studies were performed in the right and left upper extremities. The right median motor study recording the abductor pollicis brevis showed a normal amplitude, normal distal latency and normal conduction velocity. The right ulnar motor study recording the abductor digiti minimi showed a normal amplitude, normal distal latency and normal conduction velocity. No conduction block or focal slowing was present across the elbow. The right median sensory response recording digit two showed a normal amplitude, latency and conduction velocity. The right ulnar sensory response recording digit five showed a normal amplitude, latency and conduction velocity. The right radial sensory response recording over the extensor snuff box showed a normal amplitude, latency and conduction velocity. The left median motor study recording the abductor pollicis brevis showed a normal amplitude, normal distal latency and normal conduction velocity. The left ulnar motor study recording the abductor digiti minimi showed a normal amplitude, normal distal latency and normal conduction velocity. No conduction block or focal slowing was present across the elbow. The left median sensory response recording digit two showed a normal amplitude, latency and conduction velocity. The left ulnar sensory response recording digit five showed a normal amplitude, latency and conduction velocity. The left radial sensory response recording over the extensor snuff box showed a normal amplitude, latency and conduction velocity. Right median-ulnar lumbrical / interosseous motor latencies showed a normal median latency compared to the ulnar. Left median-ulnar lumbrical / interosseous motor latencies showed a normal median latency compared to the ulnar. Needle EMG of the right upper extremity and cervical paraspinal muscles was performed. No denervation was seen in any muscle. All motor unit morphology, activation and recruitment patterns were normal. Needle EMG of the left upper extremity and cervical paraspinal muscles was performed. No denervation was seen in any muscle. All motor unit morphology, activation and recruitment patterns were normal. Impression: This is a normal study. There is no electrophysiologic evidence of median neuropathy across the wrist on either side. In addition, there is no electrophysiologic evidence of cervical radiculopathy, brachial plexopathy or other entrapment neuropathy in either upper extremity. Please note: electrodiagnostic testing is appropriately 95% sensitive in detecting median neuropathy across the wrist when internal comparison studies are done, as was performed in this case. However, 5% of patients will have a false negative study. Presumably, in these patients, intermittent compression results in pain and paresthesias from ischemia, but without any fixed demyelination or axonal loss that can be demonstrated on electrodiagnostic studies. Thus, clinical correlation is required in the interpretation of this negative study. Dora Camacho D.O. Multi Select Codes Neurology Neurology Interp Codes: 48959-07 Musc test done w/n test comp (interp) (Qty:2) and 10028-89 Nr cndj test / studies (interp) 01/23/23904 <Electronically signed by Max Camacho DO> Date Max Camacho DO CC: Dr. Dora Camacho DO; Dr. Geovanni Wiley DO Date Dictated: 01/23/23902 Date Transcribed: 01/23/23902 Barn Manager: SHAD Signed Geovanni Wiley DO Work Phone: Start: 12-22-2022 Mri spinal canal lumbar w/o contrast material Geovanni Wiley DO Work Phone: Start: 09-27-2022 End: 10-03-2022 Brain W/WO Contrast Procedure Note: See Note; NOTES: [facility] Services [address] [place] [address] Brain W/WO Contrast MR#: [id number] Acct: [id number] Name: LISSY SALGUERO Rep #: [id number] : 1965 F 57 From: Chela castle MD PCP: Dr. Geovanni Wiley DO Status: REG CLI Study: Brain W/WO Contrast Date of Exam: 09/27/22 Exam# [id number] Ordering Dr: Geovanni Wiley DO HISTORY: VERTIGO. TECHNIQUE: Multiplanar and multisequence MR images of the brain were obtained before and after the intravenous administration of 14 mL Clariscan. 335 images. COMPARISON: None. FINDINGS: BRAIN PARENCHYMA: Minimal increased T2 FLAIR signal in the periventricular white matter. No enhancing lesion in the brain parenchyma. No abnormal focus of restricted diffusion. No acute intracranial hemorrhage identified. CSF SPACES: Cerebral ventricles, cortical sulci, and other extra-axial CSF spaces within normal limits in size. No significant midline shift or other mass effect.No extra-axial fluid collection. Volume averaging artifact noted at the right internal auditory canal. VASCULAR SYSTEM: Major intracranial flow voids are maintained. PARANASAL SINUSES AND MASTOID AIR CELLS: Trace fluid in the right mastoid air cells. Small Thornwaldt cyst of the nasopharynx. ORBITS: Symmetric contents. MRI/Brain W/WO Contrast IMPRESSION: No evidence for enhancing intracranial mass or acute infarct. Minimal chronic white matter changes. Electronically Signed: Chela Agrawal MD at 14:36 EST , CC: Dr. Geovanni Wiley DO Barn Manager: Signed Geovanni Wiley DO Work Phone: Start: 09-27-2022 MRI of brain with contrast Start: 08-23-2022 Mammography Screen Wst r Start: 08-09-2022 Radex spine cervical 4 or 5 views [facility] Provider Start: 06-05-2017 Colonoscopy Shanta Pinto son PT Work Phone: Dr. Rissa Briseno CMA Comment on above: Ketamine treatments Dr. Rissa Briseno CMA Comment on above: Ketamine treatments Dr. Rissa Briseno CMA Comment on above: Ketamine treatments Dr. Rissa Lowery MA Comment on above: Ketamine treatments Dr. Rissa Briseno CMA Comment on above: Ketamine treatments Dr. 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 maintainer Dr. 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 maintainer Dr. 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 maintainer Dr. scott Lowery MA Comment on above: press maintainer Dr. 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 maintainer left knee meniscal tear- arthroscopy- [place] 2020 Geovanni Whitehead Fast DO Work Phone: left knee meniscal tear- arthroscopy- [place] 2020 Ana Rosa Briseno CMA left knee meniscal tear- arthroscopy- [place] 2020 Ana Rosa Briseno CMA left knee meniscal tear- arthroscopy- [place] 2020 Saba Lowery MA left knee meniscal tear- arthroscopy- [place] 2020 Ana Rosa Briseno CMA Operative procedure on knee Jorje Yovanny Paulson Work Phone: Comment on above: 2020: Left; Plan of Treatment Date Care Activity Detail Author Start: 02-15-2039 RSV Vaccine (1 - 1-dose 75+ series) RSV Vaccine (1 - 1-dose 75+ series) [facility] Start: 02-15-2039 RSV Vaccines (1 - 1-dose 75+ series) RSV Vaccines (1 - 1-dose 75+ series) [facility] Start: 06-05-2027 Screening for malignant neoplasm of colon [facility] Start: 07-07-2025 COVID-19 Vaccine ( season) COVID-19 Vaccine ( season) [facility] Start: 07-07-2025 Influenza vaccination Influenza Vaccine (#1) [facility] Start: 08-13-2024 End: 08-13-2024 Patient encounter procedure Radiology Comment on above: right wrist Right wrist pain. Pa in is constant, unable to use right wrist/hand. Start: 07-07-2024 Covid-19 Vaccine ( season) Covid-19 Vaccine () [facility] Start: 07-07-2024 [facility] Start: 11-29-2023 History and physical examination, annual for health maintenance Wellness Visit [facility] Start: 08-23-2023 Mammography MAMMOGRAM [facility] Start: 08-23-2023 Screening for malignant neoplasm of breast [facility] Start: 08-08-2023 Procedure Education Eprescribed prescriptions (G8553) [facility]; [facility] Work Phone: Start: 08-08-2023 Assay of free thyroxine T4, FREE (THYROXINE) (26528) [facility]; [facility] Work Phone: Start: 08-08-2023 Assay of triiodothyronine t3 free FREE TRIIDOTHYRONINE (T3) (20448) [facility]; [facility] Work Phone: Start: 08-08-2023 Assay of thyroid stimulating hormone tsh TSH (75826) [facility]; [facility] Work Phone: Start: 08-08-2023 Hemoglobin glycosylated a1c HGB A1C (81024) [facility]; [facility] Work Phone: Start: 08-08-2023 Blood count complete auto&auto difrntl wbc CBC W/AUTO DIFF WBC (95808) [facility]; [facility] Work Phone: Start: 08-08-2023 Comprehensive metabolic panel METABOLIC PANEL, COMPREHENSIVE (19929) [facility]; [facility] Work Phone: Start: 08-08-2023 Lipid panel LIPID PANEL (58102) [facility]; [facility] Work Phone: Start: 04-03-2023 Blood count complete auto&auto difrntl wbc CBC W/AUTO DIFF WBC (88807) [facility]; [facility] Work Phone: Start: 04-03-2023 Comprehensive metabolic panel METABOLIC PANEL, COMPREHENSIVE (90850) [facility]; [facility] Work Phone: Start: 04-03-2023 Lipid panel LIPID PANEL (86121) [facility]; [facility] Work Phone: Start: 03-28-2023 Procedure Education Eprescribed prescriptions (G8553) [facility]; [facility] Work Phone: Start: 11-29-2022 Procedure Education Eprescribed prescriptions (G8553) [facility]; [facility] Work Phone: Start: 11-29-2022 Provider Instructions for Treatment Pap/Pelvic/Bimanual/Exa m was done. [facility]; [facility] Work Phone: Start: 11-29-2022 Hpv, dna, amp probe HPV automatic (53745) [facility]; [facility] Work Phone: Start: 11-22-2022 Procedure Education Eprescribed prescriptions (G8553) [facility]; [facility] Work Phone: Start: 11-22-2022 Hemoglobin glycosylated a1c HGB A1C (34560) [facility]; [facility] Work Phone: Start: 11-22-2022 Comprehensive metabolic panel METABOLIC PANEL, COMPREHENSIVE (26935) [facility]; [facility] Work Phone: Start: 11-22-2022 Lipoprotein blood garth numbers & subclasses NMR Profile (40860) [facility]; [facility] Work Phone: Start: 10-14-2022 CBC, PLATELETS & MANUAL DIFF (23320) CBC, PLATELETS & MANUAL DIFF (86062) [facility]; [facility] Work Phone: Comment on above: get these along with [employer] hormone pro file Start: 10-14-2022 Comprehensive metabolic panel METABOLIC PANEL, COMPREHENSIVE (68028) [facility]; [facility] Work Phone: Comment on above: get these along with [employer] pro file Start: 09-11-2022 Blood count complete auto&auto difrntl wbc CBC W/AUTO DIFF WBC (48969) [facility]; [facility] Work Phone: Start: 09-11-2022 Comprehensive metabolic panel METABOLIC PANEL, COMPREHENSIVE (16175) [facility]; [facility] Work Phone: Start: 09-06-2022 Procedure Education Eprescribed prescriptions (G2853) [facility]; [facility] Work Phone: Start: 07-07-2022 Influenza vaccination INFLUENZA (#1) [facility] Start: 11-06-2021 DEPRESSION ASSESSMENT DEPRESSION ASSESSMENT [facility] Start: 08-02-2021 COVID-19 VACCINE (3 - Booster for Pfizer series) COVID-19 VACCINE (3 - Booster for Pfizer series) [facility] Start: 04-27-2021 COVID-19 VACCINE (3 - Booster for Pfizer series) COVID-19 VACCINE (3 - Booster for Pfizer series) [facility] Start: 06-05-2018 Colonoscopy COLONOSCOPY [facility] Start: 06-05-2018 COLORECTAL CANCER SCREENING COLORECTAL CANCER SCREENING [facility] Start: 02-15-2014 Administration of herpes zoster vaccine Zoster Vaccines (1 of 2) [facility] Start: 02-15-2014 Pneumococcal Vaccine: 50+ Years (1 of 1 - PCV) Pneumococcal Vaccine: 50+ Years (1 of 1 - PCV) [facility] Start: 02-15-2014 Screening for malignant neoplasm of colon Flexible sigmoidoscopy [facility] Start: 02-15-2014 SHINGRIX VACCINE (1 of 2) SHINGRIX VACCINE (1 of 2) [facility] Start: 02-15-2009 COLOGUARD (FIT-DNA) COLOGUARD (FIT-DNA) [facility] Start: 02-15-2009 Colonoscopy COLONOSCOPY [facility] Start: 02-15-2009 COLORECTAL CANCER SCREENING COLORECTAL CANCER SCREENING [facility] Start: 02-15-[address] COLONOGRAPHY [facility] Start: 02-15-2009 DIABETES SCREEN DIABETES SCREEN [facility] Start: 02-15-2009 Diabetes Screening Diabetes Screening [facility] Start: 02-15-2009 FECAL OCCULT BLOOD FECAL OCCULT BLOOD [facility] Start: 02-15-2009 Lipid panel Lipid Screening [facility] Start: 02-15-2009 LIPID SCREEN LIPID SCREEN [facility] Start: 02-15-2009 Screening for malignant neoplasm of colon [facility] Start: 02-15-2009 SIGMOIDOSCOPY SIGMOIDOSCOPY [facility] Start: 2004 Mammography MAMMOGRAM [facility] Start: 02-15-1994 HPV TESTING HPV TESTING [facility] Start: 02-15-1994 Screening for malignant neoplasm of cervix [facility] Start: 02-15-1985 PAP TESTING PAP TESTING [facility] Start: 02-15-1985 Screening for malignant neoplasm of cervix [facility] Start: 02-15-1983 Urine microalbumin profile [facility] Start: 02-15-1983 Vaccination for diphtheria, pertussis, and tetanus Tetanus/Diphtheria/Pert ussis (1 - Tdap) [facility] Start: 02-15-1982 Anxiety Screening Anxiety Screening [facility] Start: 02-15-1982 Depression Screening Depression Screening [facility] Start: 02-15-1982 HEPATITIS C SCREENING HEPATITIS C SCREENING [facility] Start: 02-15-1982 Hepatitis C screening Hepatitis C Screening [facility] Start: 02-15-1982 HIV SCREENING HIV SCREENING [facility] Start: 02-15-1982 HIV screening HIV Screening [facility] Start: 02-15-1979 HIV screening HIV Screening [facility] Start: 1976 Adult depression screening assessment [facility] Start: 02-15-1965 Nzhzqyl-fghxa-[id number] vaccination MMR Vaccines (1 of 1 - Standard series) [facility] Start: 1965 HEPATITIS B (1 of 3 - 3-dose series) HEPATITIS B (1 of 3 - 3-dose series) [facility] Start: 1965 Screening for malignant neoplasm of colon [facility] End: 08-29-2025 XR Wrist - right PA and Lateral and Oblique XR WRIST GENERAL 3V PA/LAT/OBL RIGHT Radiology Routine Pain in right wrist 1 Occurrences starting 07/30/2024 until 08/29/2025 [facility] Work Phone: Comment on above: 1 Occurrences starting 07/30/2024 until 08/29/2025 [facility] Work Phone: [facility] Work Phone: [facility] Work Phone: [facility] Work Phone: [facility] Work Phone: [facility] Work Phone: [facility] Work Phone: [facility] Work Phone: [facility] Work Phone: [facility] Work Phone: [facility] Work Phone: Immunizations Immunization Date Immunization Notes Care Provider [facility] 08-10-2021 influenza virus vacc ine, unspecified formulation Selwyn Oshea MD Work Phone: [facility] Payers Date Payer Category Payer Self-pay [id number] 2023 Managed Care PPO (unspecified) [employer] PPO [id number] 2019 Unknown 2019 Unknown [id number] 2017 Private Health Insurance 1965 Unknown [id number] 1965 Unknown [id number] 1965 Unknown [id number] 1959 Private Health Insurance [id number] Unknown [id number] Unknown [id number] Unknown [id number] Social History Date Type Detail Facility Start: 04-13-2020 End: 09-15-2025 Non-smoker [facility] [employer] Work Phone: Comment on above: 2 children adopted - Dallas and Jane Start: 08-17-2018 End: 09-15-2025 Tobacco smoking status NHIS Never smoked tobacco [facility] Start: 08-17-2018 End: 09-15-2025 Tobacco use and exposure Smokeless tobacco non-user [facility] Start: 04-13-2020 End: 09-15-2025 Alcohol intake Current drinker of alcohol (finding) [facility] Start: 1965 Sex Assigned At Not on file [facility] Start: 1965 Sex Assigned At Female [facility] Start: 04-13-2020 End: 09-15-2025 Tobacco use panel [facility] National Score (1-100), lower number is lower risk 63 [facility] Clinical Notes 09-07-2021 to 09-15-2025 Jaquelin Buchanan CNP - 09/15/2025 7:30 AM EST Note Date & Type Note Facility 09-15-2025 Note HISTORY Patient Name: Lissy Salguero Date of Exam: 09/15/2025 Date of Surgery: 09/15/25 Diagnosis: Perioperative Medical Evaluation (H02.423) Reason for visit/consultation: Medical risk stratification for surgery History of current illness: Lissy Salguero is a 60 y.o. female who presents for preoperative medical risk stratification prior to eye surgery at the request of Dr. Faby Martin MD. Her medical conditions include: Rosacea hypothyroidism Type of anesthesia for upcoming surgery: Sedation Anesthesia History: Yes, without complications Problem List[1] Past Medical History: Diagnosis Date Hypothyroidism 09/15/2025 Rosacea 09/15/2025 History reviewed. No pertinent surgical history. Allergies[2] Review of Systems Constitutional: Negative fever HENT: Negative for trouble swallowing. Eyes: Positive for visual disturbance. Respiratory: Negative for cough, chest tightness, shortness of breath and wheezing. Cardiovascular: Negative for chest pain, palpitations and leg swelling. Neurological: Negative for dizziness, seizures, light-headedness and headaches. Psychiatric/Behavioral: Negative for confusion. Problem List[3] Past Medical History: Diagnosis Date Hypothyroidism 09/15/2025 Rosacea 09/15/2025 History reviewed. No pertinent surgical history. Allergies[4] Social History Tobacco Use Smoking status: Never Smokeless tobacco: Never Substance Use Topics Alcohol use: Yes Social History Substance and Sexual Activity Drug Use Never History reviewed. No pertinent family history. Current Medications[5] PHYSICAL Patient Name: Lissy Salguero Age: 60 y.o. BP 131/76 Pulse 78 Temp 97.9 degrees F (36.6 degrees C) Resp 16 Ht 5' 7.5 Wt 65.3 kg (144 lb) SpO2 98% BMI 22.22 kg/m Physical Exam Vitals and nursing note reviewed. Constitutional: Appearance: Normal appearance. She is well-developed. HENT: Head: Normocephalic. Cardiovascular: Rate and Rhythm: Normal rate and regular rhythm. Heart sounds: Normal heart sounds, S1 normal and S2 normal. Pulmonary: Effort: Pulmonary effort is normal. Breath sounds: Normal breath sounds and air entry. No decreased breath sounds, wheezing, rhonchi or rales. Neurological: Mental Status: She is alert and oriented to person, place, and time. Psychiatric: Attention and Perception: Attention normal. Mood and Affect: Mood normal. Speech: Speech normal. Behavior: Behavior normal. Behavior is cooperative. Thought Content: Thought content normal. Cognition and Memory: Cognition and memory normal. EKG Results: Not indicated Labs: No results found for this visit on 09/15/25. IMPRESSION/PLAN Lissy Salguero is a 60 y.o. female who presents for preoperative medical risk stratification prior to surgery at the request of Dr. Faby Martin MD. Risk factors for surgery include: Rosacea: Chronic, stable on doxycycline Hypothyroidism: Chronic, stable and controlled on cytomel Falls:Patient is at higher risk for falls due to vision impairment- fall risk precautions were discussed with patient including turning on lights and securing carpet edges. Preoperative recommendations: I reviewed the patient's pertinent medical history and medications. Questions regarding her medical issues were answered and discussed. No additional recommendations or changes are warranted prior to her scheduled surgery. Postoperative recommendations: Patient was instructed to continue her current medical regimen following surgery, unless instructed otherwise by her surgeon. The patient will follow up with her PCP for any additional medical concerns. Risk Assessment: Pt would be considered at a Low risk of morbidity from additional treatment/surgery. This patient has an acceptable cardiac risk for the intended procedure. This patient has an acceptable cardiac risk for the intended procedure, it is my professional opinion that the patient does not have any medical condition at this present time that significantly increase the risk for an adverse outcome. Thank you for the opportunity to evaluate your patient. Please feel free to contact our office with any questions. A copy of this evaluation was provided to the referring physician. Jaquelin Buchanan CNP [1] Patient Active Problem List Diagnosis Rosacea Hypothyroidism [2] Allergies Allergen Reactions Mold Unknown Soybean Unknown Wheat Unknown [3] Patient Active Problem List Diagnosis Rosacea Hypothyroidism [4] Allergies Allergen Reactions Mold Unknown Soybean Unknown Wheat Unknown [5] Current Outpatient Medications Medication Sig Dispense Refill doxycycline hyclate (PERIOSTAT) 20 MG tablet Take 1 (one) tablet (20 mg total) by mouth . liothyronine (CYTOMEL) 5 MCG tablet Take by mouth daily . progesterone (PROMETRIUM) 200 MG capsule No current facilit (more content not included)... [facility] 09-15-2025 History of Present illness Narrative HISTORY Patient Name: Lissy Salguero Date of Exam: 09/15/2025 Date of Surgery: 09/15/25 Diagnosis: Perioperative Medical Evaluation (H02.423) Reason for visit/consultation: Medical risk stratification for surgery History of current illness: Lissy Salguero is a 60 y.o. female who presents for preoperative medical risk stratification prior to eye surgery at the request of Dr. Faby Martin MD. Her medical conditions include: Rosacea hypothyroidism Type of anesthesia for upcoming surgery: Sedation Anesthesia History: Yes, without complications Problem List[1] Past Medical History: Diagnosis Date Hypothyroidism 09/15/2025 Rosacea 09/15/2025 History reviewed. No pertinent surgical history. Allergies[2] Review of Systems Constitutional: Negative fever HENT: Negative for trouble swallowing. Eyes: Positive for visual disturbance. Respiratory: Negative for cough, chest tightness, shortness of breath and wheezing. Cardiovascular: Negative for chest pain, palpitations and leg swelling. Neurological: Negative for dizziness, seizures, light-headedness and headaches. Psychiatric/Behavioral: Negative for confusion. Problem List[3] Past Medical History: Diagnosis Date Hypothyroidism 09/15/2025 Rosacea 09/15/2025 History reviewed. No pertinent surgical history. Allergies[4] Social History Tobacco Use Smoking status: Never Smokeless tobacco: Never Substance Use Topics Alcohol use: Yes Social History Substance and Sexual Activity Drug Use Never History reviewed. No pertinent family history. Current Medications[5] PHYSICAL Patient Name: Lissy Salguero Age: 60 y.o. BP 131/76 Pulse 78 Temp 97.9 F (36.6 C) Resp 16 Ht 5' 7.5 Wt 65.3 kg (144 lb) SpO2 98% BMI 22.22 kg/m Physical Exam Vitals and nursing note reviewed. Constitutional: Appearance: Normal appearance. She is well-developed. HENT: Head: Normocephalic. Cardiovascular: Rate and Rhythm: Normal rate and regular rhythm. Heart sounds: Normal heart sounds, S1 normal and S2 normal. Pulmonary: Effort: Pulmonary effort is normal. Breath sounds: Normal breath sounds and air entry. No decreased breath sounds, wheezing, rhonchi or rales. Neurological: Mental Status: She is alert and oriented to person, place, and time. Psychiatric: Attention and Perception: Attention normal. Mood and Affect: Mood normal. Speech: Speech normal. Behavior: Behavior normal. Behavior is cooperative. Thought Content: Thought content normal. Cognition and Memory: Cognition and memory normal. EKG Results: Not indicated Labs: No results found for this visit on 09/15/25. IMPRESSION/PLAN Lissy Salguero is a 60 y.o. female who presents for preoperative medical risk stratification prior to surgery at the request of Dr. Faby Martin MD. Risk factors for surgery include: Rosacea: Chronic, stable on doxycycline Hypothyroidism: Chronic, stable and controlled on cytomel Falls:Patient is at higher risk for falls due to vision impairment- fall risk precautions were discussed with patient including turning on lights and securing carpet edges. Preoperative recommendations: I reviewed the patient's pertinent medical history and medications. Questions regarding her medical issues were answered and discussed. No additional recommendations or changes are warranted prior to her scheduled surgery. Postoperative recommendations: Patient was instructed to continue her current medical regimen following surgery, unless instructed otherwise by her surgeon. The patient will follow up with her PCP for any additional medical concerns. Risk Assessment: Pt would be considered at a Low risk of morbidity from additional treatment/surgery. This patient has an acceptable cardiac risk for the intended procedure. This patient has an acceptable cardiac risk for the intended procedure, it is my professional opinion that the patient does not have any medical condition at this present time that significantly increase the risk for an adverse outcome. Thank you for the opportunity to evaluate your patient. Please feel free to contact our office with any questions. A copy of this evaluation was provided to the referring physician. Jaquelin Buchanan CNP [1] Patient Active Problem List Diagnosis Rosacea Hypothyroidism [2] Allergies Allergen Reactions Mold Unknown Soybean Unknown Wheat Unknown [3] Patient Active Problem List Diagnosis Rosacea Hypothyroidism [4] Allergies Allergen Reactions Mold Unknown Soybean Unknown Wheat Unknown [5] Current Outpatient Medications Medication Sig Dispense Refill doxycycline hyclate (PERIOSTAT) 20 MG tablet Take 1 (one) tablet (20 mg total) by mouth . liothyronine (CYTOMEL) 5 MCG tablet Take by mouth daily . progesterone (PROMETRIUM) 200 MG capsule No current facility-administered medications for this visit. documented in this encounter [facility] 01-10-2024 Discharge summary Note Date/Time January 10, 2024 5:01 pm [facility] [address] [place] [address]. [address] [place] [address] / REHABILITATION SERVICES DISCHARGE SUMMARY MR#: [id number] Acct: [id number] Name: LISSY SALGUERO Rep #: [id number] : 1965 58 From: Cert. ROSS Funk, OCS Referring Dr.: Dr. Geovanni Wiley, DO Status: REG RCR Insurance: [facility] SELF PAY INSURANCE Discharge Summary D/C summary: It has been my pleasure to treat LISSY SALGUERO referred by Dr. Geovanni Wiley DO, with the diagnosis of TENNIS ELBOW for a total of 8 visit(s). Discharge Date: Please see the following information for a summary of their discharge status. Subjective Subjective: Burning pain better . 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 MMT: wrist flexion/extension ,supination/pronation 4-/5 elbow biceps /triceps 4/5 pain Goals Goal 1:: Patient to improve quick dash by 5 points to improve function/ADLS Goal Progress: Goal Met Goal 2:: Patient to demonstrate 50% improvement with less elbow pain and improved function Goal Progress: Goal Met Goal 3:: 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 Thank you for the referral of thispatient. Sincerely, Feliberto Sherwood PT, Cert MDT, OCS Balance/Gait/Functional tests Balance/Special Test Scores Quick DASH Score: 15.0000 Improvement % Improvement: 90 <Electronically signed by Sourav Murray PT. ROSS, OCS> 01/11/24 1118 CC: Dr. Geovanni Wiley DO ~ PAVEL Signed [facility] Work Phone: [phone]) 797-939303-20-2023 Procedure [facility] 12-22-2022 NoteHNO ID: [id number] Author: RT Gaby(R) Service: ? Author Type: Technologist Type: Progress Notes Filed: 12/22/2022 8:08 AM Note Text: Radiology Service Progress Note PATIENT NAME: Lissy Salguero DATE OF SERVICE: December 22, 2022 TIME: 8:07 AM PATIENT IDENTITY VERIFICATION COMPLETED USING TWO (2) IDENTIFIERS: Name and Date of confirmed by patient verbally. FALL SCREENING: Has the patient had 2 falls in the last year or 1 fall with injury or currently using an Ambulatory Assistive Device (Walker, Cane, Wheelchair, Crutches, etc.)? No PATIENT GENDER DATA: Female. status: : No status: NO. PATIENT RELEVANT IMPLANT DATA REVIEWED: Yes RADIOLOGY DEPARTMENT: MR; Exam(s) Completed: Spine: Lumbar spine PERIPHERAL IV DATA: Not applicable SIGNED BY: RT Gaby(R) December 22, 2022 8:07 [facility] of Present illness Narrative* Saurabh Alvarez RT(R) - 12/22/2022 7:30 AM EST Radiology Service Progress Note PATIENT NAME: Lissy Salguero DATE OF SERVICE: December 22, 2022 TIME: 8:07 AM PATIENT IDENTITY VERIFICATION COMPLETED USING TWO (2) IDENTIFIERS: Name and Date of confirmedby patient verbally. FALL SCREENING: Has the patient had 2 falls in the last year or 1 fall with injury or currently using an Ambulatory Assistive Device (Walker, Cane, Wheelchair, Crutches, etc.)? No PATIENT GENDER DATA: Female. status: : No status: NO. PATIENT RELEVANT IMPLANT DATA REVIEWED: Yes RADIOLOGY DEPARTMENT: MR; Exam(s) Completed: Spine: Lumbar spine PERIPHERAL IV DATA: Not applicable SIGNED BY: RT Gaby(R) December 22, 2022 8:07 AM [facility] NoteHNO ID: [id number] Author: Shanta Solomon PT Service: ? Author Type: Physical Therapist Type: Progress Notes Filed: 10/11/2022 9:28 AM Note Text: Episode Visit Count: 5 Therapist That Will Accept/Oversee The Plan Of Care: Shanta Solomon PT Start of Care Date: 07/19/22 Onset Date: 07/19/20 Patient Identified by Name and Date of : Yes REHABILITATION AND SPORTS THERAPY PHYSICAL THERAPY DISCONTINUANCE OF CARE PLAN OF CARE UPDATE: Assessment: Lissy Salguero is discontinued from Physical Therapy services due to goal achievement and maximal benefit.. Patient was seen for 5 visits from Start of Care Date: 07/19/22 to 10/11/2022 and treatment included: Therapeutic exercise, Self-custodial management, and Patient/Family/Caregiver Education. Goals for Episode of Care: created on 07/19/22 through 08/30/22 updated 10/11/22 [place] in home exercise program./ achieved Patient will decrease pain rating by 2 points to meet minimal clinical important difference for numeric pain rating scale./ achieved Patient will increase active ROM of right shoulder to equal left to allow pt to to improve performance of ADLs./ partially achieved Patient will demonstrate increase in core/ postural and shoulder strength to 5/5 during manual muscle testing in order to improve function for prior functional tasks./ achieved Patient will increase flexibility of hamstrings to 60 degrees to improve mechanics and decrease pain./ achieved Perform exercise and ADL's without pain./ achieved Patient Goals: be able to use machines at gym , get strength and be more flexible/ partially achieved. SUBJECTIVE: Patient Reason for Visit: Pt notes that things are going well for her. Pt notes that she had to stop doing the fall outs d/t causing pain in hip. No longer has any pain in hip. Shoulder is doing well as well as back. She notes that she id confident with home program. Pain: Pain Pain Level: 0 Post Treatment Pain Post Treatment Pain Level: No Change PROMIS Scales T-scores: mean of general population = 50. 5 points is clinically meaningfully difference Percentiles provide an indication of how the patient's score ranks in relation to the general population. Higher percentile rankings indicate better function/quality of life. 50th percentile is the average of the general population and indicates half of respondents had a worse score. T-scores: mean of general population = 50. 5 points is clinically meaningfully difference Percentiles provide an indication of how the patient's score ranks in relation to the general population. Higher percentile rankings indicate better function/quality of life. 50th percentile is the average of the general population and indicates half of respondents had a worse score. OBJECTIVE MEASURES WITH LEVEL OF FUNCTION: Posture / Alignment Posture: Good UE AROM R Shoulder Flex: 158 Degrees R Shoulder ABduction: 140 Degrees R Shoulder Internal Rotation (Functional): 3 ;ess left R Shoulder External Rotation (Functional): 1/2 less left L Shoulder Flex: 155 Degrees L Shoulder ABduction: 145 Degrees L Shoulder Internal Rotation (Functional): T12 L Shoulder External Rotation (Functional): T2 LE Flexibility R Hamstring Flexibility: 45 L Hamstring Flexibility: 45 LE Strength Trunk Strength: 4/5 Functional Strength Functional Strength: denies difficulty with functional tasks Gait Gait Observation: no deviation TREATMENT: Therapeutic Exercise: 1: reviewed home exs and pt reported good understanding 2: reviewed findins of objective measures and ROM 3: prone leg lifts with good form 1x10 B 4: shoulder AROM no pain Skilled Intervention: Skilled judgment was provided in selection of appropriate interventions. Patient education as noted. Billing Therapeutic Exercise Treatment Minutes: 20 Total Treatment Time Minutes (timed/untimed): 20 Shanta Solomon [facility]12-06-2022 History of Present illness Narrative* Shanta Solomon, PT - 10/11/2022 9:27 AM EST Episode Visit Count: 5 Therapist That Will Accept/Oversee The Plan Of Care: Shanta Solomon PT Start of Care Date: 07/19/22 Onset Date: 07/19/20 Patient Identified by Name and Date of : Yes REHABILITATION AND SPORTS THERAPY PHYSICAL THERAPY DISCONTINUANCE OF CARE PLAN OF CARE UPDATE: Assessment: Lissy Salguero is discontinued from Physical Therapy services due to goal achievement and maximal benefit.. Patient was seen for 5 visits from Start of Care Date: 07/19/22 to 10/11/2022 and treatment included: Therapeutic exercise, Self-custodial management, and Patient/Family/Caregiver Education. Goals for Episode of Care: created on 07/19/22 through 08/30/22 updated 10/11/22 [place] in home exercise program./ achieved Patient will decrease pain rating by 2 points to meet minimal clinical important difference for numeric pain rating scale./ achieved Patient will increase active ROM of right shoulder to equal left to allow pt to to improve performance of ADLs./ partially achieved Patient will demonstrate increase in core/ postural and shoulder strength to 5/5 during manual muscle testing in order to improve function for prior functional tasks./ achieved Patient will increase flexibility of hamstrings to 60 degrees to improve mechanics and decrease pain./ achieved Perform exercise and ADL's without pain./ achieved Patient Goals: be able to use machines at gym , get strength and be more flexible/ partially achieved. SUBJECTIVE: Patient Reason for Visit: Pt notes that things are going well for her. Pt notes that she had to stop doing the fall outs d/t causing pain in hip. No longer has any pain in hip. Shoulder is doing well as well as back. She notes that she id confident with home program. Pain: Pain Pain Level: 0 Post Treatment Pain Post Treatment Pain Level: No Change PROMIS Scales T-scores: mean of general population = 50. 5 points is clinically meaningfully difference Percentiles provide an indication of how the patient's score ranks in relation to the general population. Higher percentile rankings indicate better function/quality of life. 50th percentile is the average of the general population and indicates half of respondents had a worse score. T-scores: mean of general population = 50. 5 points is clinically meaningfully difference Percentiles provide an indication of how the patient's score ranks in relation to the general population. Higher percentile rankings indicate better function/quality of life. 50th percentile is the average of the general population and indicates half of respondents had a worse score. OBJECTIVE MEASURES WITH LEVEL OF FUNCTION: Posture / Alignment Posture: Good UE AROM R Shoulder Flex: 158 Degrees R Shoulder ABduction: 140 Degrees R Shoulder Internal Rotation (Functional): 3 ;ess left R Shoulder External Rotation (Functional): 1/2 less left L Shoulder Flex: 155 Degrees L Shoulder ABduction: 145 Degrees L Shoulder Internal Rotation (Functional): T12 L Shoulder External Rotation (Functional): T2 LE Flexibility R Hamstring Flexibility: 45 L Hamstring Flexibility: 45 LE Strength Trunk Strength: 4/5 Functional Strength Functional Strength: denies difficulty with functional tasks Gait Gait Observation: no deviation TREATMENT: Therapeutic Exercise: 1: reviewed home exs and pt reported good understanding 2: reviewed findins of objective measures and ROM 3: prone leg lifts with good form 1x10 B 4: shoulder AROM no pain Skilled Intervention: Skilled judgment was provided in selection of appropriate interventions. Patient education as noted. Billing Therapeutic Exercise Treatment Minutes: 20 Total Treatment Time Minutes (timed/untimed): 20 Shanta Solomon PT documented [facility]22 NoteHNO ID: [id number] Author: Shanta Solomon PT Service: ? Author Type: Physical Therapist Type: Progress Notes Filed: 08/30/2022 11:41 AM Note Text: Episode Visit Count: 4 Therapist That Will Accept/Oversee The Plan Of Care: Shanta Solomon PT Start of Care Date: 07/19/22 Onset Date: 07/19/20 Patient Identified by Name and Date of : Yes REHABILITATION AND SPORTS THERAPY PHYSICAL THERAPY TREATMENT NOTE ASSESSMENT: Lissy Salguero tolerated the session with no issues. She demonstrated improvements in pain and functional status . The patient will continue to benefit from ongoing skilled physical therapy to progress toward set goals. PLAN FOR NEXT VISIT: POC update SUBJECTIVE: Patient Reason for Visit: Pt notes that hip is 80% better. She is doing well and able to work outside and not have increase pain Pain: Pain Pain Level: 2 Pain Location: Shoulder - Left;Shoulder - Right Pain Level 2: 2 Pain Location 2: Low Back/Lumbar Spine - Left;Low Back/Lumbar Spine - Right Post Treatment Pain Post Treatment Pain Level: No Change OBJECTIVE MEASURES WITH LEVEL OF FUNCTION: LE Flexibility R Hamstring Flexibility: 45 L Hamstring Flexibility: 45 TREATMENT: Therapeutic Exercise: 1: seated piriformis stretch 30 sec x3 left 2: standing I-T band stretch , left foot behind right only 30 sec x3 3: orange rep band shoulder flexion 2x10 to 45 degrees 4: reviewed other exs for appropriate level of exs. Pt reports good compliance and understanding Skilled Intervention: Patient was educated in proper exercise technique and purpose for exercises. Reviewed and educated patient on additions/changes for home exercise program . Provided written instruction for home exercise program to facilitate proper performance and compliance. Patient education as noted. Home Exercise Program Assigned: 1: orange rep band shoulder flexion 2x10 to 45 degrees Billing Therapeutic Exercise Treatment Minutes: 30 Total Treatment Time Minutes (timed/untimed): 30 Shanta Solomon [facility]10-25-2022 History of Present illness Narrative* Shanta Solomon PT - 08/30/2022 11:40 AM EDT Episode Visit Count: 4 Therapist That Will Accept/Oversee The Plan Of Care: Shanta Solomon PT Start of Care Date: 07/19/22 Onset Date: 07/19/20 Patient Identified by Name and Date of : Yes REHABILITATION AND SPORTS THERAPY PHYSICAL THERAPY TREATMENT NOTE ASSESSMENT: Lissy Salguero tolerated the session with no issues. She demonstrated improvementsin pain and functional status . The patient will continue to benefit from ongoing skilled physical therapy to progress toward set goals. PLAN FOR NEXT VISIT: POC update SUBJECTIVE: Patient Reason for Visit: Pt notes that hip is 80% better. She is doing well and able to work outside and not have increase pain Pain: Pain Pain Level: 2 Pain Location: Shoulder - Left;Shoulder - Right Pain Level 2: 2 Pain Location 2: Low Back/Lumbar Spine - Left;Low Back/Lumbar Spine - Right Post Treatment Pain Post Treatment Pain Level: No Change OBJECTIVE MEASURES WITH LEVEL OF FUNCTION: LE Flexibility R Hamstring Flexibility: 45 L Hamstring Flexibility: 45 TREATMENT: Therapeutic Exercise: 1: seated piriformis stretch 30 sec x3 left 2: standing I-T band stretch , left foot behind right only 30 sec x3 3: orange rep band shoulder flexion 2x10 to 45 degrees 4: reviewed other exs for appropriate level of exs. Pt reports good compliance and understanding Skilled Intervention: Patient was educated in proper exercise technique and purpose for exercises. Reviewed and educated patient on additions/changes for home exercise program . Provided written instruction for home exercise program to facilitate proper performance and compliance. Patient education as noted. Home Exercise Program Assigned: 1: orange rep band shoulder flexion 2x10 to 45 degrees Billing Therapeutic Exercise Treatment Minutes: 30 Total Treatment Time Minutes (timed/untimed): 30 Shanta Solomon PT documented in this [facility]10-[facility]22 NoteHNO ID: [id number] Author: Lg Chou RT(R) Service: ? Author Type: Technologist Type: Progress Notes Filed: 08/23/2022 9:03 AM Note Text: Radiology Service Progress Note PATIENT NAME: Lissy Salguero DATE OF SERVICE: August 23, 2022 TIME: 8:54 AM PATIENT IDENTITY VERIFICATION COMPLETED USING TWO (2) IDENTIFIERS: Name and Date of confirmed by patient verbally. FALL SCREENING: Has the patient had 2 falls in the last year or 1 fall with injury or currently using an Ambulatory Assistive Device (Walker, Cane, Wheelchair, Crutches, etc.)? No PATIENT GENDER DATA: Female. status: : No status: NO. PATIENT RELEVANT IMPLANT DATA REVIEWED: Not Applicable RADIOLOGY DEPARTMENT: Bone Density PERIPHERAL IV DATA: Not applicable SIGNED BY: RT North(R) August 23, 2022 8:54 [facility]10-18-2022 Miscellaneous Notes * Letter - Mammography Coordinator - 08/23/2022 10:57 AM EDT August 23, 2022 PID: [id number] Lissy Salguero [address] [place] [address] [address] [place] [address] Dear Ms. Salguero, We are pleased to inform you that the results of your recent breast imaging exam on 08/23/2022 are normal. Your mammogram demonstrates that you have dense breast tissue, which could hide abnormalities. Dense breast tissue, in and of itself, is a relatively common condition. Therefore, this information is not provided to cause undue concern; rather, it is to raise your awareness and promote discussion with your health care provider regarding the presence of dense breast tissue in addition to other riskfactors. Early detection of cancer is very important. We also understand recommendations regarding breast cancer screening are controversial. Please discuss with your primary care provider which strategy is best for you and whether a mammogram is right for you. Your imaging studies and report will be [facility] as part of [facility] permanent medical record and are available for your continuing care. Thank you for allowing us to help in meeting your health care needs. Sincerely, Dr. James Interpreting Radiologist [facility] (Normal over 40) documented in this encounterWex[facility] Center10-18-2022 NoteHNO ID: [id number] Author: RT Isabelle(R) Service: ? Author Type: Technologist Type: Progress Notes Filed: 08/23/2022 7:58 AM Note Text: Radiology Service Progress Note PATIENT NAME: Lissy Salguero DATE OF SERVICE: August 23, 2022 TIME: 7:58 AM PATIENT IDENTITY VERIFICATION COMPLETED USING TWO (2) IDENTIFIERS: Name and Date of confirmed by patient verbally. FALL SCREENING: Has the patient had 2 falls in the last year or 1 fall with injury or currently using an Ambulatory Assistive Device (Walker, Cane, Wheelchair, Crutches, etc.)? No PATIENT GENDER DATA: Female. status: : No status: NO. PATIENT RELEVANT IMPLANT DATA REVIEWED: Not Applicable RADIOLOGY DEPARTMENT: Mammography PERIPHERAL IV DATA: Not applicable SIGNED BY: RT Isabelle(R) August 23, 2022 7:58 [facility]10-18-2022 History of Present illness Narrative* RT North(R) - 08/23/2022 9:00 AM EDT Radiology Service Progress Note PATIENT NAME: Lissy Salguero DATE OF SERVICE: August 23, 2022 TIME: 8:54 AM PATIENT IDENTITY VERIFICATION COMPLETED USING TWO (2) IDENTIFIERS: Name and Date of confirmedby patient verbally. FALL SCREENING: Has the patient had 2 falls in the last year or 1 fall with injury or currently using an Ambulatory Assistive Device (Walker, Cane, Wheelchair, Crutches, etc.)? No PATIENT GENDER DATA: Female. status: : No status: NO. PATIENT RELEVANT IMPLANT DATA REVIEWED: Not Applicable RADIOLOGY DEPARTMENT: Bone Density PERIPHERAL IV DATA: Not applicable SIGNED BY: RT North(R) August 23, 2022 8:54 AM documented in this encounterW[facility]10-18-2022 History of Present illness Narrative* RT Isabelle(R) - 08/23/2022 7:50 AM EDT Radiology Service Progress Note PATIENT NAME: Lissy Salguero DATE OF SERVICE: August 23, 2022 TIME: 7:58 AM PATIENT IDENTITY VERIFICATION COMPLETED USING TWO (2) IDENTIFIERS: Name and Date of confirmedby patient verbally. FALL SCREENING: Has the patient had 2 falls in the last year or 1 fall with injury or currently using an Ambulatory Assistive Device (Walker, Cane, Wheelchair, Crutches, etc.)? No PATIENT GENDER DATA: Female. status: : No status: NO. PATIENT RELEVANT IMPLANT DATA REVIEWED: Not Applicable RADIOLOGY DEPARTMENT: Mammography PERIPHERAL IV DATA: Not applicable SIGNED BY: RT Isabelle(R) August 23, 2022 7:58 AM documented in this encounterWex[facility] Center10-11-2022 NoteHNO ID: [id number] Author: Shanta Solomon PT Service: ? Author Type: Physical Therapist Type: Progress Notes Filed: 08/16/2022 9:42 AM Note Text: Episode Visit Count: 3 Therapist That Will Accept/Oversee The Plan Of Care: Shanta Solomon PT Start of Care Date: 07/19/22 Onset Date: 07/19/20 Patient Identified by Name and Date of : Yes REHABILITATION AND SPORTS THERAPY PHYSICAL THERAPY TREATMENT NOTE ASSESSMENT: Lissy Salguero tolerated the session with difficulty with pain in left lateral hip. Added exs to address this pain . She demonstrated improvements in core activitation . The patient will continue to benefit from ongoing skilled physical therapy to progress toward set goals. PLAN FOR NEXT VISIT: Review new exs. Advance reps SUBJECTIVE: Patient Reason for Visit: Pt notes that she lost her band. and had trouble with her massage table. Overall feels she is standing up straighter . Reports that she has had pain side of left hip which bothers her alot getting in and out of car. Has had trouble with I-T band in the past. Pain: Pain Pain Level: 2 (neck is 0/10) Pain Location: Shoulder - Left;Shoulder - Right Pain Level 2: 2 Pain Location 2: Low Back/Lumbar Spine - Left;Low Back/Lumbar Spine - Right Post Treatment Pain Post Treatment Pain Level: No Change OBJECTIVE MEASURES WITH LEVEL OF FUNCTION: TREATMENT: Therapeutic Exercise: 1: seated piriformis stretch 30 sec x3 left 2: standing I-T band stretch , left foot behind right only 30 sec x3 3: prone prop 1 min x1 4: prone leg lifts 1x10 B alternating 7: TA series, Arm lifts, marches, bent knee fall outs, arm and leg lifts all 12 reps 8: orange rep band shoulder IR 1x10 9: orange rep band shoulder ER 1x7 with fatigue Skilled Intervention: Patient was educated in proper exercise technique and purpose for exercises. Reviewed and educated patient on additions/changes for home exercise program . Skilled judgment was provided in selection of appropriate interventions. Provided written instruction for home exercise program to facilitate proper performance and compliance. Correct performance of therapeutic exercises was facilitated with verbal and visual cuing. Patient education as noted. Home Exercise Program Assigned: 1: seated piriformis stretch 30 sec x3 left 2: standing I-T band stretch , left foot behind right only 30 sec x3 Billing Therapeutic Exercise Treatment Minutes: 38 Total Treatment Time Minutes (timed/untimed): 38 Shanta Solomon [facility]10-04-2022 NoteHNO ID: [id number] Author: Shanta Solomon PT Service: ? Author Type: Physical Therapist Type: Progress Notes Filed: 08/09/2022 9:10 AM Note Text: Episode Visit Count: 2 Therapist That Will Accept/Oversee The Plan Of Care: Shanta Solomon PT Start of Care Date: 07/19/22 Onset Date: 07/19/20 Patient Identified by Name and Date of : Yes REHABILITATION AND SPORTS THERAPY PHYSICAL THERAPY TREATMENT NOTE ASSESSMENT: Lissy Salguero tolerated the session with no issues. She demonstrated improvements in right shoulder ROM but right hamstring still very tight. The patient will continue to benefit from ongoing skilled physical therapy to progress toward set goals. PLAN FOR NEXT VISIT: Consider increased reps of exs SUBJECTIVE: Patient Reason for Visit: Pt notes that she has been doing ketamine injections which has helped. . Doing exs which are going ok and thinks that shoulder motion is a little better Pain: Pain Pain Level: 3 Pain Location: Neck Pain Level 2: 3 Pain Location 2: Low Back/Lumbar Spine - Left;Low Back/Lumbar Spine - Right Post Treatment Pain Post Treatment Pain Level: No Change Post Treatment Pain Location: Neck;Scapula - Right;Shoulder - Right;Low Back/Lumbar Spine - Right;Low Back/Lumbar Spine - Left OBJECTIVE MEASURES WITH LEVEL OF FUNCTION: TREATMENT: Therapeutic Exercise: 1: shoulder jolie elevation 1x10 2: green rep band scapular retraction 1x10 3: prone prop 1 min x1 4: prone leg lifts 1x10 B alternating 5: upper trap stretch no hands 15 sec hold x3 B 6: hamstring seated with leg on bed 30 sec hold x3 B 7: TA series, Arm lifts, marches, bent knee fall outs, arm and leg lifts all 10 reps 8: orange rep band shoulder IR 1x10 9: orange rep band shoulder ER 1x7 with fatigue Skilled Intervention: Patient was educated in proper exercise technique and purpose for exercises. Reviewed and educated patient on additions/changes for home exercise program as above (*). Skilled judgment was provided in selection of appropriate interventions. Provided written instruction for home exercise program to facilitate proper performance and compliance. Correct performance of therapeutic exercises was facilitated with verbal and visual cuing. Patient education as noted. Home Exercise Program Assigned: 1: add TA series 2: orange rep band shoulder IR 1x10 3: orange rep band shoulder ER 1x7 with fatigue Billing Therapeutic Exercise Treatment Minutes: 45 Total Treatment Time Minutes (timed/untimed): 45 Shanta Solomon [facility]10-04-2022 NoteHNO ID: [id number] Author: RT Mei(R) Service: Nuclear Medicine Author Type: Technologist Type: Progress Notes Filed: 08/09/2022 8:58 AM Note Text: Radiology Service Progress Note PATIENT NAME: Lissy Salguero DATE OF SERVICE: August 09, 2022 TIME: 8:41 AM PATIENT IDENTITY VERIFICATION COMPLETED USING TWO (2) IDENTIFIERS: Name and Date of confirmed by patient verbally. FALL SCREENING: Has the patient had 2 falls in the last year or 1 fall with injury or currently using an Ambulatory Assistive Device (Walker, Cane, Wheelchair, Crutches, etc.)? No PATIENT GENDER DATA: Female. status: : No status: NO. PATIENT RELEVANT IMPLANT DATA REVIEWED: Not Applicable RADIOLOGY DEPARTMENT: General X-ray: Exam(s) Completed: Spine X-Ray(s): Cervical AP / LAT / OBL and Lumbar AP / LAT / L5-S1 PERIPHERAL IV DATA: Not applicable SIGNED BY: RT Mei(R) August 09, 2022 8:41 [facility]10-04-2022 History of Present illness Narrative* Shanta Solomon, PT - 08/09/2022 9:09 AM EDT Episode Visit Count: 2 Therapist That Will Accept/Oversee The Plan Of Care: Shanta Solomon PT Start of Care Date: 07/19/22 Onset Date: 07/19/20 Patient Identified by Name and Date of : Yes REHABILITATION AND SPORTS THERAPY PHYSICAL THERAPY TREATMENT NOTE ASSESSMENT: Lissy Salguero tolerated the session with no issues. She demonstrated improvementsin right shoulder ROM but right hamstring still very tight. The patient will continue to benefit from ongoing skilled physical therapy to progress toward set goals. PLAN FOR NEXT VISIT: Consider increased reps of exs SUBJECTIVE: Patient Reason for Visit: Pt notes that she has been doing ketamine injections which has helped. . Doing exs which are going ok and thinks that shoulder motion is a little better Pain: Pain Pain Level: 3 Pain Location: Neck Pain Level 2: 3 Pain Location 2: Low Back/Lumbar Spine - Left;Low Back/Lumbar Spine - Right Post Treatment Pain Post Treatment Pain Level: No Change Post Treatment Pain Location: Neck;Scapula - Right;Shoulder - Right;Low Back/Lumbar Spine - Right;Low Back/Lumbar Spine - Left OBJECTIVE MEASURES WITH LEVEL OF FUNCTION: TREATMENT: Therapeutic Exercise: 1: shoulder jolie elevation 1x10 2: green rep band scapular retraction 1x10 3: prone prop 1 min x1 4: prone leg lifts 1x10 B alternating 5: upper trap stretch no hands 15 sec hold x3 B 6: hamstring seated with leg on bed 30 sec hold x3 B 7: TA series, Arm lifts, marches, bent knee fall outs, arm and leg lifts all 10 reps 8: orange rep band shoulder IR 1x10 9: orange rep band shoulder ER 1x7 with fatigue Skilled Intervention: Patient was educated in proper exercise technique and purpose for exercises. Reviewed and educated patient on additions/changes for home exercise program as above (*). Skilled judgment was provided in selection of appropriate interventions. Provided written instruction for home exercise program to facilitate proper performance and compliance. Correct performance of therapeutic exercises was facilitated with verbal and visual cuing. Patient education as noted. Home Exercise Program Assigned: 1: add TA series 2: orange rep band shoulder IR 1x10 3: orange rep band shoulder ER 1x7 with fatigue Billing Therapeutic Exercise Treatment Minutes: 45 Total Treatment Time Minutes (timed/untimed): 45 Shanta Solomon PT documented in this [facility]10-[facility]22 History of Present illness Narrative* RT Mei(R) - 08/09/2022 9:00 AM EDT Radiology Service Progress Note PATIENT NAME: Lissy Salguero DATE OF SERVICE: August 09, 2022 TIME: 8:41 AM PATIENT IDENTITY VERIFICATION COMPLETED USING TWO (2) IDENTIFIERS: Name and Date of confirmedby patient verbally. FALL SCREENING: Has the patient had 2 falls in the last year or 1 fall with injury or currently using an Ambulatory Assistive Device (Walker, Cane, Wheelchair, Crutches, etc.)? No PATIENT GENDER DATA: Female. status: : No status: NO. PATIENT RELEVANT IMPLANT DATA REVIEWED: Not Applicable RADIOLOGY DEPARTMENT: General X-ray: Exam(s) Completed: Spine X-Ray(s): Cervical AP / LAT / OBL andLumbar AP / LAT / L5-S1 PERIPHERAL IV DATA: Not applicable SIGNED BY: RT Mei(R) August 09, 2022 8:41 AM documented in this encounterW[facility]09-13-2022 NoteHNO ID: [id number] Author: Shanta Solomon PT Service: ? Author Type: Physical Therapist Type: Progress Notes Filed: 07/19/2022 2:55 PM Note Text: Episode Visit Count: 1 Therapist That Will Accept/Oversee The Plan Of Care: Shanta Solomon PT Start of Care Date: 07/19/22 Onset Date: 07/19/20 Patient Identified by Name and Date of : Yes REHABILITATION AND SPORTS THERAPY PHYSICAL THERAPY EVALUATION PLAN OF CARE: Assessment: Lissy Salguero presents with chief complaint of right shoulder, neck, scapular pain mid and low back pain that interferes with recreational activities;reaching overhead . She presents with impairments in flexibility, independence in exercise, overall function, posture, range of motion, strength , and symptom management. . Prognosis for therapy is Good due to: current objective clinical presentation . She will benefit from skilled therapy services to meet the goals established for this plan of care as noted below. Classification Low Back Pain Subgroup Classification: Core stabilization subgroup: recommended visits 10. Core Stabilization Subgroup Classification based on: pain with transitional movements Goals for Episode of Care: created on 07/19/22 through 08/30/22 [place] in home exercise program. Patient will decrease pain rating by 2 points to meet minimal clinical important difference for numeric pain rating scale. Patient will increase active ROM of right shoulder to equal left to allow pt to to improve performance of ADLs. Patient will demonstrate increase in core/ postural and shoulder strength to 5/5 during manual muscle testing in order to improve function for prior functional tasks. Patient will increase flexibility of hamstrings to 60 degrees to improve mechanics and decrease pain. Perform exercise and ADL's without pain. Patient Goals: be able to use machines at gym , get strength and be more flexible Planned Interventions, Frequency, and Duration: Current Frequency: 1x/week Duration: 4 weeks Total Number of Visits Planned: 4 Planned Treatment Interventions: Therapeutic exercise (62094);Manual therapy (87868);Neuromuscular re-education (81694);Self-custodial management (87804);Patient/Family/Caregiver Education;Body Mechanics Training PLAN FOR NEXT VISIT: Will add right shoulder orange rep band IR and ER if tolerated. Add hooklying TA series exs. Patient demonstrates good understanding of plan of care and treatment. The above goals and plan of care were discussed and agreed upon by patient/family. SUBJECTIVE: Lissy Salguero is a 57 year old female seen today for Pain which is burning in the neck and scapular area and pain into back including the low back. Notes that it just hurts. 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 Intake Information: Prescription present Previous Treatment: None Spine History Pain is Worse Always: AM (neck is worse at end of day) Sleeping Position: Side lying right;Side lying left Sleep Affected by Pain: Pain awakens Pain: Pain Pain Level: 4 (neck and shoulder) Pain Location: Neck Description: Tightness Frequency: Continuous Additional Pain Information : Location 2 Pain Level 2: 6 Pain Location 2: Low Back/Lumbar Spine - Left;Low Back/Lumbar Spine - Right Post Treatment Pain Post Treatment Pain Level: No Change Post Treatment Pain Location: Neck;Scapula - Right;Shoulder - Right;Low Back/Lumbar Spine - Right;Low Back/Lumbar Spine - Left PROMIS Scales T-scores: mean of general population = 50. 5 points is clinically meaningfully difference Percentiles provide an indication of how the patient's score ranks in relation to the general population. Higher percentile rankings indicate better function/quality of life. 50th percentile is the average of the general population and indicates half of respondents had a worse score. T-scores: mean of general population = 50. 5 points is clinically meaningfully difference Percentiles provide an indication of how the patient's score ranks in relation to the general population. Higher percentile rankings indicate better function/quality of life. 50th percentile is the average of the general population and indicates half of respondents had a worse score. OBJECTIVE MEASURES WITH LEVEL OF FUNCTION: Posture / Alignment Posture: Decreased lumbar lordosis Lumbo - Pelvic Alignment: right IC high, right scapula low Sitting Posture: Fair Spine Observations R Lumbar Spine Palpation Tenderness: (prominence of right paraspinals and ribs right vs left) Lumbar Spine AROM Lumbar Flexion: Moderate limitation;End range pain Lumbar Extension: Minimal limitation;Increa (more content not included)... [facility]09-13-2022 History of Present illness Narrative* Shanta Solomon, PT - 07/19/2022 2:51 PM EDT Episode Visit Count: 1 Therapist That Will Accept/Oversee The Plan Of Care: Shanta Solomon PT Start of Care Date: 07/19/22 Onset Date: 07/19/20 Patient Identified by Name and Date of : Yes REHABILITATION AND SPORTS THERAPY PHYSICAL THERAPY EVALUATION PLAN OF CARE: Assessment: Lissy Salguero presents with chief complaint of right shoulder, neck, scapular pain mid and low back pain that interferes with recreational activities;reaching overhead . She presents with impairments in flexibility, independence in exercise, overall function, posture, range of motion, strength , and symptom management. . Prognosis for therapy is Good due to: current objective clinical presentation . She will benefit from skilled therapy services to meet the goals established for this plan of care as noted below. Classification Low Back Pain Subgroup Classification: Core stabilization subgroup: recommended visits 10. Core Stabilization Subgroup Classification based on: pain with transitional movements Goals for Episode of Care: created on 07/19/22 through 08/30/22 [place] in home exercise program. Patient will decrease pain rating by 2 points to meet minimal clinical important difference for numeric pain rating scale. Patient will increase active ROM of right shoulder to equal left to allow pt to to improve performance of ADLs. Patient will demonstrate increase in core/ postural and shoulder strength to 5/5 during manual muscle testing in order to improve function for prior functional tasks. Patient will increase flexibility of hamstrings to 60 degrees to improve mechanics and decrease pain. Perform exercise and ADL's without pain. Patient Goals: be able to use machines at gym , get strength and be more flexible Planned Interventions, Frequency, and Duration: Current Frequency: 1x/week Duration: 4 weeks Total Number of Visits Planned: 4 Planned Treatment Interventions: Therapeutic exercise (29374);Manual therapy (37866);Neuromuscular re-education (61988);Self-custodial management (89651);Patient/Family/Caregiver Education;Body Mechanics Training PLAN FOR NEXT VISIT: Will add right shoulder orange rep band IR and ER if tolerated. Add hooklying TA series exs. Patient demonstrates good understanding of plan of care and treatment. The above goals and plan of care were discussed and agreed upon by patient/family. SUBJECTIVE: Lissy Salguero is a 57 year old female seen today for Pain which is burning in theneck and scapular area and pain into back including the low back. Notes that it just hurts. 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 Intake Information: Prescription present Previous Treatment: None Spine History Pain is Worse Always: AM (neck is worse at end of day) Sleeping Position: Side lying right;Side lying left Sleep Affected by Pain: Pain awakens Pain: Pain Pain Level: 4 (neck and shoulder) Pain Location: Neck Description: Tightness Frequency: Continuous Additional Pain Information : Location 2 Pain Level 2: 6 Pain Location 2: Low Back/Lumbar Spine - Left;Low Back/Lumbar Spine - Right Post Treatment Pain Post Treatment Pain Level: No Change Post Treatment Pain Location: Neck;Scapula - Right;Shoulder - Right;Low Back/Lumbar Spine - Right;Low Back/Lumbar Spine - Left PROMIS Scales T-scores: mean of general population = 50. 5 points is clinically meaningfully difference Percentiles provide an indication of how the patient's score ranks in relation to the general population. Higher percentile rankings indicate better function/quality of life. 50th percentile is the average of the general population and indicates half of respondents had a worse score. T-scores: mean of general population = 50. 5 points is clinically meaningfully difference Percentiles provide an indication of how the patient's score ranks in relation to the general population. Higher percentile rankings indicate better function/quality of life. 50th percentile is the average of the general population and indicates half of respondents had a worse score. OBJECTIVE MEASURES WITH LEVEL OF FUNCTION: Posture / Alignment Posture: Decreased lumbar lordosis Lumbo - Pelvic Alignment: right IC high, right scapula low Sitting Posture: Fair Spine Observations R Lumbar Spine Palpation Tenderness: (prominence of right paraspinals and ribs right vs left) Lumbar Spine AROM Lumbar Flexion: Moderate limitation;End range pain Lumbar Extension: Minimal limitation;Increased pain;End range pain Lumbar R Side-Bend: Minimal limitation;End range pain Lumbar L Side-Bend: Minimal limitation;End range pain UE AROM R Shoulder Flex: 142 Degrees (end range pain) R Shoulder ABduction: 130 Degrees R Shoulder Internal Rotation (Functional): T12 (with pain) R Shoulder External Rotation (Functional): T3 L Shoulder Flex: 155 Degrees L Shoulder ABduction: 154 Degrees L Shoulder Internal Rotation (Functional): T12 L Shoulder External Rotation (Functional): T3 LE Flexibility Flexibility: Hamstring Flexibility R Hamstring Flexibility: 45 L Hamstring Flexibility: 50 LE Strength Trunk Strength: 3/5 R Hip Flexion (L2): 5/5 R Knee Extension (L3): 5/5 R Knee Flexion: 5/5 R Ankle Dorsiflexion (L4): 5/5 L Hip Flexion (L2): 5/5 L Knee Extension (L3): 5/5 L Knee Flexion: 5/5 L Ankle Dorsiflexion (L4): 5/5 Functional Strength Functional Strength: decreased core stabilization which leads to back pain with functional tasks Special Tests - Hip and Spine Hip and Spine Special Tests: SLR Test SLR Test: Right Negative;Left Negative Gait Weight Bearing Status: FWB Gait Observation: no deviation Education: Education Learning Preferences: Demonstration;Explanation;Performance;Printed Materials Barriers: None Learning/educational needs: Home exercise program;Plan of Care Education Provided: Yes, see treatment interventions for education provided Education Provided To: Patient Education Mode/Type: Demonstration;Explanation/Discussion;Literature/Printed Materials;Performance Response to Education/Teach Back: States/Identifies;Return Demonstration TREATMENT: PT Treatment Interventions: Therapeutic Exercise Evaluation Therapeutic Exercise: 1: shoulder jolie elevation 1x10 2: green rep band scapular retraction 1x10 3: prone prop 1 min x1 4: prone leg lifts 1x10 B alternating 5: upper trap stretch no hands 15 sec hold x3 B 6: hamstring seated with leg on bed 30 sec hold x3 B Skilled Intervention: Patient was educated in proper exercise technique and purpose for exercises. Skilled judgment was provided in selection of appropriate interventions. Provided written instruction for home exercise program to facilitate proper performance and compliance. Correct performance of therapeutic exercises was facilitated with verbal and visual cuing. Educated patient on rationale for performing exercises in regards to ROM and function . Patient education as noted. Home Exercise Program Assigned: 1: as outlined above Billing * Evaluation Low Complexity: 1 Unit Therapeutic Exercise Treatment Minutes: 25 Total Treatment Time Minutes (timed/untimed): 45 [facility] of Past illness Narrative* Problem Noted Date Resolved Date Idiopathic scoliosis and kyphoscoliosis 07/19/20 22 10/11/2022 Poor posture 07/19/2022 10/11/2022 documented as of this encounter (statuses as of 10/11/2022) [facility]11-[facility] NoteAccession #: [id number] Date of Procedure: 09/07/2021 Pathologist: [facility], Cytology Date Reported: 09/13/2021 Date Received: 09/07/2021 Submitting Physician: FELIBERTO DOE MD Attending Physician: FELIBERTO DOE MD FINAL CYTOLOGICAL INTERPRETATION A. THINPREP PAP CERVICAL: Specimen Adequacy: SATISFACTORY FOR EVALUATION. Quality Indicator: Absence of endocervical/transformation zone component. General Categorization: NEGATIVE FOR INTRAEPITHELIAL LESION OR MALIGNANCY. Ancillary Testing: Specimen does not meet the requisition-stated criteria for HPV testing. See Pap test interpretation above. This specimen has been analyzed by the [facility] ([employer] an automated imaging and review system, which assists the laboratory in evaluating cells on ThinPrep Pap tests. Following automated imaging, selected farias from every slide were reviewed by a transport driver and/or pathologist. Electronically Signed Out By [facility], Cytology//P By the signature on this report, the individual or group listed as making the Final Interpretation/Diagnosis certifies that they have reviewed this case. Educational Note: Cervical cytology is a screening procedure primarily for squamous cancers and precursors and has associated false-negative and false-positive results as evidenced by published data. Your patient?s test should be interpreted in this context, together with patient?s history and clinical findings. Regular sampling and follow-up of unexplained clinical signs and symptoms are recommended to minimize false negative results. Clinical History Date of Last Menstrual Period: Menopause Other Clinical Conditions: HPV Reflex for ASC-US only - Include HPV Genotype Annual Clinical Diagnosis History: Encounter for Papanicolaou smear of cervix - (Z12.4); Women's annual routine gynecological examination - (Z01.419) Source of Specimen A: THINPREP PAP CERVICAL [facility] Department of Pathology [id number] [place], [place] [address]Comment on above:Performed By: #### C #### [facility] Cytology [id number] [id number] note* Diagnosis Idiopathic scoliosis and kyphoscoliosis- Primary Scoliosis (and kyphoscoliosis), idiopathic Poor posture Abnormal posture [facility]* Diagnosis Idiopathic scoliosis and kyphoscoliosis- Primary Scoliosis (and kyphoscoliosis), idiopathic Poor posture Abnormal posture [facility] Diagnosis Idiopathic scoliosis and kyphoscoliosis- Primary Scoliosis (and kyphoscoliosis), idiopathic Poor posture Abnormal posture documented [facility] noteNo assessment information availableWMorrow County Hospital Work Phone: Evaluation note* Diagnosis Idiopathic scoliosis and kyphoscoliosis- Primary Scoliosis (and kyphoscoliosis), idiopathic Poor posture Abnormal posture [facility]* Diagnosis Pain in right wrist- Primary Pain in joint, forearm [facility]* Diagnosis Pre-op testing- Primary Unspecified pre-operative examination Myogenic ptosis of eyelid of both eyes Rosacea Hypothyroidism, unspecified type [facility] NarrativePresents for annual exam. She voices no complaints and is doing well. Denies any bowel or bladder problems. Denies any breast problems. Denies any postmenopausal bleeding.[employer] [place] [address] [place] Work Phone: Instructions* Name Dates Details Patient Instructions Indication:BMI 23.0-23.9, adult Start:06-Sep-2022 Instruction Type:Provider Instructions for Treatment How to Access Health Informa tion Online using Patient Portal and 3rd [employer] Apps Indication:BMI 23.0-23.9, adult Start:06-Sep-2022 Instruction Type:Patient Edu cation [facility]; [facility] Work Phone: InsRobinhoodions* Name Dates Details Patient Instructions Indication:BMI 23.0-23.9, adult Start:06-Sep-2022 Instruction Type:Provider Instructions for Treatment How to Access Health Informa tion Online using Patient Portal and [employer] Apps Indication:BMI 23.0-23.9, adult Start:06-Sep-2022 Instruction Type:Patient Edu cation [facility]; [facility] Work Phone: [email or web address]* Name Dates Details Patient Instructions Indication:BMI 23.0-23.9, adult Start:06-Sep-2022 Instruction Type:Provider Instructions for Treatment How to Access Health Informa tion Online using Patient Portal and [employer] Apps Indication:BMI 23.0-23.9, adult Start:06-Sep-2022 Instruction Type:Patient Edu cation [facility]; [facility] Work Phone: Instructions* Name Dates Details Patient Instructions Indication:BMI 23.0-23.9, adult Start:06-Sep-2022 Instruction Type:Provider Instructions for Treatment How to Access Health Informa tion Online using Patient Portal and 3rd [employer] Apps Indication:BMI 23.0-23.9, adult Start:06-Sep-2022 Instruction Type:Patient Edu cation [facility]; [facility] Work Phone: instructions* Name Dates Details Patient Instructions Indication:BMI 23.0-23.9, adult Start:06-Sep-2022 Instruction Type:Provider Instructions for Treatment How to Access Health Informa tion Online using Patient Portal and 3rd [employer] Apps Indication:BMI 23.0-23.9, adult Start:06-Sep-2022 Instruction Type:Patient Edu cation [facility]; [facility] Work Phone: instructions* Name Dates Details Patient Instructions Indication:Elevated hemoglobin A1c Start:22-Nov-2022 Instruction Type:Provider Instructions for Treatment How to Access Health Informa tion Online using Patient Portal and 3rd [employer] Apps Indication:Elevated hemoglobin A1c Start:22-Nov-2022 Instruction Type:Patient Education Patient Instructions Indication:BMI 23.0-23.9, adult Start:06-Sep-2022 Instruction Type:Provider Instructions for Treatment How to Access Health Informa tion Online using Patient Portal and 3rd [employer] Apps Indication:BMI 23.0-23.9, adult Start:06-Sep-2022 Instruction Type:Patient Education [facility]; [facility] Work Phone: [employer]Bed[employer]* Name Dates Details Patient Instructions Indication:Elevated hemoglobin A1c Start:22-Nov-2022 Instruction Type:Provider Instructions for Treatment How to Access Health Informa tion Online using Patient Portal and 3rd [employer] Apps Indication:Elevated hemoglobin A1c Start:22-Nov-2022 Instruction Type:Patient Education Patient Instructions Indication:BMI 23.0-23.9, adult Start:06-Sep-2022 Instruction Type:Provider Instructions for Treatment How to Access Health Informa tion Online using Patient Portal and [employer] Indication:BMI 23.0-23.9, adult Start:06-Sep-2022 Instruction Type:Patient Education [facility]; [facility] Work Phone: instructions* Name Dates Details Patient Instructions Indication:Well woman exam (Renamed from Encounter for well woman exam) Start:29-Nov-2022 Instruction Type:Provider Instructions for Treatment How to Access Health Informa tion Online using Patient Portal and 3rd [employer] Apps Indication:Well woman exam (Renamed from Encounter for well woman exam) Start:29-Nov-2022 Instruction Type:Patient Education Patient Instructions Indication:Elevated hemoglobin A1c Start:22-Nov-2022 Instruction Type:Provider Instructions for Treatment How to Access Health Informa tion Online using Patient Portal and [employer] Indication:Elevated hemoglobin A1c Start:22-Nov-2022 Instruction Type:Patient Education Patient Instructions Indication:BMI 23.0-23.9, adult Start:06-Sep-2022 Instruction Type:Provider Instructions for Treatment How to Access Health Informa tion Online using Patient Portal and [employer] Indication:BMI 23.0-23.9, adult Start:06-Sep-2022 Instruction Type:Patient Education [facility]; [facility] Work Phone: instructions* Name Dates Details Patient Instructions Indication:Well woman exam (Renamed from Encounter for well woman exam) Start:29-Nov-2022 Instruction Type:Provider Instructions for Treatment How to Access Health Informa tion Online using Patient Portal and [employer] Apps Indication:Well woman exam (Renamed from Encounter for well woman exam) Start:29-Nov-2022 Instruction Type:Patient Education Patient Instructions Indication:Elevated hemoglobin A1c Start:22-Nov-2022 Instruction Type:Provider Instructions for Treatment How to Access Health Informa tion Online using Patient Portal and [employer] Apps Indication:Elevated hemoglobin A1c Start:22-Nov-2022 Instruction Type:Patient Education Patient Instructions Indication:BMI 23.0-23.9, adult Start:06-Sep-2022 Instruction Type:Provider Instructions for Treatment How to Access Health Informa tion Online using Patient Portal and [employer] Apps Indication:BMI 23.0-23.9, adult Start:06-Sep-2022 Instruction Type:Patient Education [facility]; [facility] Work Phone: Insscgwxions* Name Dates Details Patient Instructions Indication:Well woman exam (Renamed from Encounter for well woman exam) Start:29-Nov-2022 Instruction Type:Provider Instructions for Treatment How to Access Health Informa tion Online using Patient Portal and [employer] Indication:Well woman exam (Renamed from Encounter for well woman exam) Start:29-Nov-2022 Instruction Type:Patient Education Patient Instructions Indication:Elevated hemoglobin A1c Start:22-Nov-2022 Instruction Type:Provider Instructions for Treatment How to Access Health Informa tion Online using Patient Portal and 3rd [employer] Apps Indication:Elevated hemoglobin A1c Start:22-Nov-2022 Instruction Type:Patient Education Patient Instructions Indication:BMI 23.0-23.9, adult Start:06-Sep-2022 Instruction Type:Provider Instructions for Treatment How to Access Health Informa tion Online using Patient Portal and 3rd [employer] Apps Indication:BMI 23.0-23.9, adult Start:06-Sep-2022 Instruction Type:Patient Education [facility]; [facility] Work Phone: instructions* Name Dates Details Patient Instructions Indication:Well woman exam (Renamed from Encounter for well woman exam) Start:29-Nov-2022 Instruction Type:Provider Instructions for Treatment How to Access Health Informa tion Online using Patient Portal and [employer]rd [employer] Apps Indication:Well woman exam (Renamed from Encounter for well woman exam) Start:29-Nov-2022 Instruction Type:Patient Education Patient Instructions Indication:Elevated hemoglobin A1c Start:22-Nov-2022 Instruction Type:Provider Instructions for Treatment How to Access Health Informa tion Online using Patient Portal and [employer]rd [employer] Apps Indication:Elevated hemoglobin A1c Start:22-Nov-2022 Instruction Type:Patient Education Patient Instructions Indication:BMI 23.0-23.9, adult Start:06-Sep-2022 Instruction Type:Provider Instructions for Treatment How to Access Health Informa tion Online using Patient Portal and [employer] Indication:BMI 23.0-23.9, adult Start:06-Sep-2022 Instruction Type:Patient Education [facility]; [facility] Work Phone: instructions* Name Dates Details Patient Instructions Indication:Well woman exam (Renamed from Encounter for well woman exam) Start:29-Nov-2022 Instruction Type:Provider Instructions for Treatment How to Access Health Informa tion Online using Patient Portal and [employer]rd [employer] Apps Indication:Well woman exam (Renamed from Encounter for well woman exam) Start:29-Nov-2022 Instruction Type:Patient Education Patient Instructions Indication:Elevated hemoglobin A1c Start:22-Nov-2022 Instruction Type:Provider Instructions for Treatment How to Access Health Informa tion Online using Patient Portal and [employer]rd [employer] Apps Indication:Elevated hemoglobin A1c Start:22-Nov-2022 Instruction Type:Patient Education Patient Instructions Indication:BMI 23.0-23.9, adult Start:06-Sep-2022 Instruction Type:Provider Instructions for Treatment How to Access Health Informa tion Online using Patient Portal and 3rd [employer] Apps Indication:BMI 23.0-23.9, adult Start:06-Sep-2022 Instruction Type:Patient Education [facility]; [facility] Work Phone: instructions* Name Dates Details Patient Instructions Indication:Nonsmoker Start:28-Mar-2023 Instruction Type:Provider Instructions for Treatment How to Access Health Informa tion Online using Patient Portal and [employer]rd [employer] Apps Indication:Nonsmoker Start:28-Mar-2023 Instruction Type:Patient Education Patient Instructions Indication:Well woman exam (Renamed from Encounter for well woman exam) Start:29-Nov-2022 Instruction Type:Provider Instructions for Treatment How to Access Health Informa tion Online using Patient Portal and [employer] Indication:Well woman exam (Renamed from Encounter for well woman exam) Start:29-Nov-2022 Instruction Type:Patient Education Patient Instructions Indication:Elevated hemoglobin A1c Start:22-Nov-2022 Instruction Type:Provider Instructions for Treatment How to Access Health Informa tion Online using Patient Portal and [employer] Indication:Elevated hemoglobin A1c Start:22-Nov-2022 Instruction Type:Patient Education Patient Instructions Indication:BMI 23.0-23.9, adult Start:06-Sep-2022 Instruction Type:Provider Instructions for Treatment How to Access Health Informa tion Online using Patient Portal and [employer] Indication:BMI 23.0-23.9, adult Start:06-Sep-2022 Instruction Type:Patient Education [facility]; [facility] Work Phone: instructions* Name Dates Details Patient Instructions Indication:Nonsmoker Start:28-Mar-2023 Instruction Type:Provider Instructions for Treatment How to Access Health Informa tion Online using Patient Portal and [employer]rd [employer] Apps Indication:Nonsmoker Start:28-Mar-2023 Instruction Type:Patient Education Patient Instructions Indication:Well woman exam (Renamed from Encounter for well woman exam) Start:29-Nov-2022 Instruction Type:Provider Instructions for Treatment How to Access Health Informa tion Online using Patient Portal and [employer]rd [employer] Apps Indication:Well woman exam (Renamed from Encounter for well woman exam) Start:29-Nov-2022 Instruction Type:Patient Education Patient Instructions Indication:Elevated hemoglobin A1c Start:22-Nov-2022 Instruction Type:Provider Instructions for Treatment How to Access Health Informa tion Online using Patient Portal and [employer]rd [employer] Apps Indication:Elevated hemoglobin A1c Start:22-Nov-2022 Instruction Type:Patient Education Patient Instructions Indication:BMI 23.0-23.9, adult Start:06-Sep-2022 Instruction Type:Provider Instructions for Treatment How to Access Health Informa tion Online using Patient Portal and [employer] Indication:BMI 23.0-23.9, adult Start:06-Sep-2022 Instruction Type:Patient Education [facility]; [facility] Work Phone: instructions* Name Dates Details Patient Instructions Indication:Nonsmoker Start:28-Mar-2023 Instruction Type:Provider Instructions for Treatment How to Access Health Informa tion Online using Patient Portal and [employer] Apps Indication:Nonsmoker Start:28-Mar-2023 Instruction Type:Patient Education Patient Instructions Indication:Well woman exam (Renamed from Encounter for well woman exam) Start:29-Nov-2022 Instruction Type:Provider Instructions for Treatment How to Access Health Informa tion Online using Patient Portal and [employer] Apps Indication:Well woman exam (Renamed from Encounter for well woman exam) Start:29-Nov-2022 Instruction Type:Patient Education Patient Instructions Indication:Elevated hemoglobin A1c Start:22-Nov-2022 Instruction Type:Provider Instructions for Treatment How to Access Health Informa tion Online using Patient Portal and [employer] Indication:Elevated hemoglobin A1c Start:22-Nov-2022 Instruction Type:Patient Education Patient Instructions Indication:BMI 23.0-23.9, adult Start:06-Sep-2022 Instruction Type:Provider Instructions for Treatment How to Access Health Informa tion Online using Patient Portal and [employer] Apps Indication:BMI 23.0-23.9, adult Start:06-Sep-2022 Instruction Type:Patient Education [facility]; [facility] Work Phone: Instructions* Name Dates Details Patient Instructions Indication:Hyperlipidemia Start:08-Aug-2023 Instruction Type:Provider Instructions for Treatment How to Access Health Informa tion Online using Patient Portal and [employer] Apps Indication:Hyperlipidemia Start:08-Aug-2023 Instruction Type:Patient Education Patient Instructions Indication:Nonsmoker Start:28-Mar-2023 Instruction Type:Provider Instructions for Treatment How to Access Health Informa tion Online using Patient Portal and [employer] Apps Indication:Nonsmoker Start:28-Mar-2023 Instruction Type:Patient Education Patient Instructions Indication:Well woman exam (Renamed from Encounter for well woman exam) Start:29-Nov-2022 Instruction Type:Provider Instructions for Treatment How to Access Health Informa tion Online using Patient Portal and [employer] Apps Indication:Well woman exam (Renamed from Encounter for well woman exam) Start:29-Nov-2022 Instruction Type:Patient Education Patient Instructions Indication:Elevated hemoglobin A1c Start:22-Nov-2022 Instruction Type:Provider Instructions for Treatment How to Access Health Informa tion Online using Patient Portal and [employer] Apps Indication:Elevated hemoglobin A1c Start:22-Nov-2022 Instruction Type:Patient Education Patient Instructions Indication:BMI 23.0-23.9, adult Start:06-Sep-2022 Instruction Type:Provider Instructions for Treatment How to Access Health Informa tion Online using Patient Portal and [employer] Apps Indication:BMI 23.0-23.9, adult Start:06-Sep-2022 Instruction Type:Patient Education [facility]; [facility] Work Phone: Instructions* Name Dates Details Patient Instructions Indication:Hyperlipidemia Start:08-Aug-2023 Instruction Type:Provider Instructions for Treatment How to Access Health Informa tion Online using Patient Portal and [employer] Apps Indication:Hyperlipidemia Start:08-Aug-2023 Instruction Type:Patient Education Patient Instructions Indication:Nonsmoker Start:28-Mar-2023 Instruction Type:Provider Instructions for Treatment How to Access Health Informa tion Online using Patient Portal and [employer] Apps Indication:Nonsmoker Start:28-Mar-2023 Instruction Type:Patient Education Patient Instructions Indication:Well woman exam (Renamed from Encounter for well woman exam) Start:29-Nov-2022 Instruction Type:Provider Instructions for Treatment How to Access Health Informa tion Online using Patient Portal and [employer] Apps Indication:Well woman exam (Renamed from Encounter for well woman exam) Start:29-Nov-2022 Instruction Type:Patient Education Patient Instructions Indication:Elevated hemoglobin A1c Start:22-Nov-2022 Instruction Type:Provider Instructions for Treatment How to Access Health Informa tion Online using Patient Portal and [employer] Apps Indication:Elevated hemoglobin A1c Start:22-Nov-2022 Instruction Type:Patient Education Patient Instructions Indication:BMI 23.0-23.9, adult Start:06-Sep-2022 Instruction Type:Provider Instructions for Treatment How to Access Health Informa tion Online using Patient Portal and [employer] Apps Indication:BMI 23.0-23.9, adult Start:06-Sep-2022 Instruction Type:Patient Education [facility]; [facility] Work Phone: instructions* Name Dates Details Patient Instructions Indication:Hyperlipidemia Start:08-Aug-2023 Instruction Type:Provider Instructions for Treatment How to Access Health Informa tion Online using Patient Portal and [employer] Apps Indication:Hyperlipidemia Start:08-Aug-2023 Instruction Type:Patient Education Patient Instructions Indication:Nonsmoker Start:28-Mar-2023 Instruction Type:Provider Instructions for Treatment How to Access Health Informa tion Online using Patient Portal and [employer] Apps Indication:Nonsmoker Start:28-Mar-2023 Instruction Type:Patient Education Patient Instructions Indication:Well woman exam (Renamed from Encounter for well woman exam) Start:29-Nov-2022 Instruction Type:Provider Instructions for Treatment How to Access Health Informa tion Online using Patient Portal and [employer] Apps Indication:Well woman exam (Renamed from Encounter for well woman exam) Start:29-Nov-2022 Instruction Type:Patient Education Patient Instructions Indication:Elevated hemoglobin A1c Start:22-Nov-2022 Instruction Type:Provider Instructions for Treatment How to Access Health Informa tion Online using Patient Portal and [employer] Indication:Elevated hemoglobin A1c Start:22-Nov-2022 Instruction Type:Patient Education Patient Instructions Indication:BMI 23.0-23.9, adult Start:06-Sep-2022 Instruction Type:Provider Instructions for Treatment How to Access Health Informa tion Online using Patient Portal and [employer] Indication:BMI 23.0-23.9, adult Start:06-Sep-2022 Instruction Type:Patient Education [facility]; [facility] Work Phone: Instructions* Name Dates Details Patient Instructions Indication:Hyperlipidemia Start:08-Aug-2023 Instruction Type:Provider Instructions for Treatment How to Access Health Informa tion Online using Patient Portal and [employer] Apps Indication:Hyperlipidemia Start:08-Aug-2023 Instruction Type:Patient Education Patient Instructions Indication:Nonsmoker Start:28-Mar-2023 Instruction Type:Provider Instructions for Treatment How to Access Health Informa tion Online using Patient Portal and [employer] Apps Indication:Nonsmoker Start:28-Mar-2023 Instruction Type:Patient Education Patient Instructions Indication:Well woman exam (Renamed from Encounter for well woman exam) Start:29-Nov-2022 Instruction Type:Provider Instructions for Treatment How to Access Health Informa tion Online using Patient Portal and [employer] Apps Indication:Well woman exam (Renamed from Encounter for well woman exam) Start:29-Nov-2022 Instruction Type:Patient Education Patient Instructions Indication:Elevated hemoglobin A1c Start:22-Nov-2022 Instruction Type:Provider Instructions for Treatment How to Access Health Informa tion Online using Patient Portal and [employer] Apps Indication:Elevated hemoglobin A1c Start:22-Nov-2022 Instruction Type:Patient Education Patient Instructions Indication:BMI 23.0-23.9, adult Start:06-Sep-2022 Instruction Type:Provider Instructions for Treatment How to Access Health Informa tion Online using Patient Portal and [employer] Apps Indication:BMI 23.0-23.9, adult Start:06-Sep-2022 Instruction Type:Patient Education [facility]; [facility] Work Phone: reason for referral (narrative)* Diagnostic Procedure Only (Routine) - Authorized Specialty Diagnoses / Procedures Referred By Ernestine t Referred To Contact XR IMAGING Diagnoses Pain in right wrist Procedures XR WRIST GENERAL 3V PA/LAT/OBL RIGHT RADEX WRIST COMPLETE MINIMUM 3 VIEWS Selwyn Oshea MD [address] [place] [address] [place] [address] Referral ID Status Reason Start Date Expiration Date Visits Requested Visits Authorized [id number] Authorized Auto-Generat ed Referral 07/30/2024 08/29/2025 1 1 [facility] for visit Narrative* Diagnostic Procedure Only (Routine) - Closed Specialty Diagnoses / Procedures Referred By Ernestine t Referred To Contact Radiology / RADIO MRI Diagnoses Schmorl's nodes, lumbar region MRI LUMBAR SPINE WO CONTRAST M51.46 ORDER IN SCANNED DOC Procedures MRI SPINAL CANAL LUMBAR W/O CONTRAST MATERIAL MRI WO CA B 300 ALL Fast, Geovanni A, DO [address] [facility] [address] [place] [address] Radio Mri [facility] [address] [place] [address] Referral ID Status Reason Start Date Expiration Date Visits Re quested Visits Authorized [id number] Closed 12/22/2022 11/05/2023 1 1 [facility] Summary Purpose Family History Unknown Family Member Name Dates Details Family history of diabetes m ellitus: Father, Sister, Brother, Maternal Grandmother(V18.0, Z83.3) Status:Active Family history of hypertensi on: Mother, Father(V17.49, Z82.49) Status:Active Family history of malignant neoplasm of breast: Paternal Grandmother(V16.3, Z80.3) Status:Active Family history of cardiac di sorder: Father(V17.49, Z82.49) Status:Active Family history of thyroid di sease: Mother(V18.19, Z83.49) Status:Active Family history of osteoporos is: Mother(V17.81, Z82.62) Status:Active Family history of asthma: Mo ther, Sister(V17.5, Z82.5) Status:Active Unknown Family Member Name Dates Details Family history of diabetes m ellitus: Father, Sister, Brother, Maternal Grandmother(V18.0, Z83.3) Status:Active Family history of hypertensi on: Mother, Father(V17.49, Z82.49) Status:Active Family history of malignant neoplasm of breast: Paternal Grandmother(V16.3, Z80.3) Status:Active Family history of cardiac di sorder: Father(V17.49, Z82.49) Status:Active Family history of thyroid di sease: Mother(V18.19, Z83.49) Status:Active Family history of osteoporos is: Mother(V17.81, Z82.62) Status:Active Family history of asthma: Mo ther, Sister(V17.5, Z82.5) Status:Active Relationship Condition Age at Onset Recorded Date/T charli father Malignant neoplasm Unknown Advance Directives No Advanced Directives Records FoundNo Advanced Directives Records FoundNo Advanced Directives Records FoundNo Advanced Directives Records FoundNo Advanced Directives Records FoundNo Advanced Directives Records FoundNo Advanced Directives Records FoundNo Advanced Directives Records FoundNo Advanced Directives Records FoundNo Advanced Directives Records Found Chief Complaint New Patient is here for her yearly exam and pap test. Menopause in 2016. Patient does not do self breast exams and has no concerns at this time. Chief Complaint and Reason for Visit Chief Complaint Dizziness and giddin ess Chief Complaint BILAT UPPER PARESTHE MARIAA BILAT UPPER PARESTHESIA Chief Complaint BILAT UPPER PARESTHE MARIAA BILAT UPPER PARESTHESIA Other cervical disc degeneration, unspecified cerv Chief Complaint NEAR SYNCOPE SCOTT T O READ NEAR SYNCOPE TENNIS ELBOW. RX HERE Additional Source Comments INFORMATION SOURCE (unrecogn ized section and content) DATE CREATED AUTHOR 05/02/2018 [facility] DATE CREATED AUTHOR AUTHOR'S ORGANIZ ATION 05/02/2018 [facility] DATE CREATED AUTHOR AUTHOR'S ORGANIZ ATION 09/08/2021 [employer] DATE CREATED AUTHOR AUTHOR'S ORGANIZ ATION 09/14/2021 [facility] DATE CREATED AUTHOR AUTHOR'S ORGANIZ ATION 10/11/2022 [facility] DATE CREATED AUTHOR AUTHOR'S ORGANIZ ATION 11/23/2022 [facility] DATE CREATED AUTHOR AUTHOR'S ORGANIZ ATION 11/30/2022 [facility] DATE CREATED AUTHOR AUTHOR'S ORGANIZ ATION 12/22/2022 [facility] DATE CREATED AUTHOR AUTHOR'S ORGANIZ ATION 09/10/2025 [facility] DATE CREATED AUTHOR AUTHOR'S ORGANIZ ATION 09/15/2025 [facility] Source Comments (unrecognize d section and content) In the event this informatio n is protected by the Federal Confidentiality of Alcohol and Drug Abuse Patient Records regulations: The Federal rules restrict any use of the information to criminally investigate or prosecute any alcohol or drug abuse patient.[facility] the event this information is protected by the Federal Confidentiality of Alcohol and Drug Abuse Patient Records regulations: The Federal rules restrict any use of the information to criminally investigate or prosecute any alcohol or drug abuse patient.[facility] the event this information is protected by the Federal Confidentiality of Alcohol and Drug Abuse Patient Records regulations: The Federal rules restrict any use of the information to criminally investigate or prosecute any alcohol or drug abuse patient.[facility] the event this information is protected by the Federal Confidentiality of Alcohol and Drug Abuse Patient Records regulations: The Federal rules restrict any use of the information to criminally investigate or prosecute any alcohol or drug abuse patient.[facility] the event this information is protected by the Federal Confidentiality of Alcohol and Drug Abuse Patient Records regulations: The Federal rules restrict any use of the information to criminally investigate or prosecute any alcohol or drug abuse patient.[facility] the event this information is protected by the Federal Confidentiality of Alcohol and Drug Abuse Patient Records regulations: The Federal rules restrict any use of the information to criminally investigate or prosecute any alcohol or drug abuse patient.[facility] the event this information is protected by the Federal Confidentiality of Alcohol and Drug Abuse Patient Records regulations: The Federal rules restrict any use of the information to criminally investigate or prosecute any alcohol or drug abuse patient.[facility] the event this information is protected by the Federal Confidentiality of Alcohol and Drug Abuse Patient Records regulations: The Federal rules restrict any use of the information to criminally investigate or prosecute any alcohol or drug abuse patient.[facility] the event this information is protected by the Federal Confidentiality of Alcohol and Drug Abuse Patient Records regulations: The Federal rules restrict any use of the information to criminally investigate or prosecute any alcohol or drug abuse patient.[facility] the event this information is protected by the Federal Confidentiality of Alcohol and Drug Abuse Patient Records regulations: The Federal rules restrict any use of the information to criminally investigate or prosecute any alcohol or drug abuse patient.[facility] Reason for Visit (unrecogniz ed section and content) Reason Comments PT Discharge Specialty Diagnoses / Procedures Referred By Contac t Referred To Contact Physical Therapy / PHYSICAL THERAPY Diagnoses Krahoscoliosis, poor posture Procedures NEW RS PT GAIT Jorje Paulson MD [address] [place] [address] Shanta Solomon, PT [address] [place] [address] Referral ID Status Reason Start Date Expiration Date V isits Requested Visits Authorized [id number] Authorized 11/06/2021 11/05/2022 40 40 Reason Comments Physical Therapy Reason Comments PT Eval Patient Education Reason Comments Perioperative Medical Evaluation H02.423 Goals (unrecognized section and content) Goals may be documented in a n alternate sectionGoals may be documented in an alternate sectionGoals may be documented in an alternate sectionGoals may be documented in an alternate sectionGoals may be documented in an alternate section Care Teams (unrecognized sec tion and content) Team Status: Active Member Role Status Dates Dr. Geovanni Wiley , DO Primary Care Provider Active Team Status: Active Member Role Status Dates Dr. Geovanni Wiley , DO Primary Care Provider, Other Provi yasmeen Active Dr. Max Camacho , DO Attending Provider Active Team Status: Inactive Member Role Status Dates Dr. Geovanni Wiley , DO Primary Care Provider, Attending Kush mi Active Team Status: Active Member Role Status Dates Dr. Geovanni Wiley , DO Primary Care Provide r, Referring Provider, Other Provider Active Dr. Max Camacho , DO Attending Provider Active Team Status: Inactive Member Role Status Dates Dr. Geovanni Wiley , DO Primary Care Provide r, Attending Provider, Referring Provider Active Team Status: Active Member Role Status Dates Dr. Geovanni Wiley , DO Primary Care Provider Active Dr. Saurabh Acosta MD Attending Provider Active Team Status: Active Member Role Status Dates Dr. Geovanni Wiley , DO Primary Care Provide r, Attending Provider, Referring Provider Active Team Status: Active Member Role Status Dates Dr. Geovanni Wiley , DO Primary Care Provider, Attending P rojoeyder Active Team Status: Active Member Role Status Dates Dr. Geovanni Wiley , DO Primary Care Provider, Referring P rovider Active Dr. Saurabh Acosta MD Attending Provider Active Records Assistant Relationship Specialty Start Date End Date No, Physician [facility] PCP - General 09/15/25 FOR RECORDS PERTAINING TO PATIENTS WHO ARE OR HAVE BEEN ENROLLED IN A CHEMICAL DEPENDENCY/SUBSTANCEABUSE PROGRAM, SOME INFORMATION MAY BE OMITTED. This clinical summary was aggregated from multiple sources. Caution should be exercised in using it in the provision of clinical care. This summary normalizes information from multiple sources, and as a consequence, information in this document may materially change the coding, format and clinical context of patient data. In addition, data may be omitted in some cases. CLINICAL DECISIONS SHOULD BE BASED ON THE PRIMARY CLINICAL RECORDS. [facility] [employer] [facility]. provides no warranty or guarantee of the accuracy or completeness of information in this document.
== END | disposition home or self-care (01) ==
LOC: OPBI 16:10
PROVIDERS: PCP Nurse Practitioner Family; Referring Provider Nurse Practitioner Family; Visit Provider Nurse Practitioner Family
DX: Z12.31 Encounter for screening mammogram for malignant neoplasm of breast (principal)
CPT/HCPCS: 77063; 77067